=== PATIENT | female | born 1970 | race Caucasian/White ===

== ENCOUNTER 2018-08-01 18:34 | Inpatient (IN) ==
[2018-08-01] MEDS ORDERED: Sod Chloride 0.9% Inj 1,000 ML IV.SIG ONE ×2 (18:48→21:34)
--- NOTE | 2018-08-01 18:55 | ED ---
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 as per student development specialist, but long distances she requires wheelchair. apparently yesterday fell during transfer to wheelchair? and has had pain since...xray outpatient have a questionable nondisplaced of prox right femur...requested ct hip. MD complaint: Reports fall Related Data Home Medications Medication Instructions Recorded Confirmed acetaminophen [Tylenol] 650 mg FEEDING TUBE Q6H PRN 08/01/18 08/01/18 acetaminophen [Tylenol] 650 mg FEEDING TUBE Q6H PRN 08/01/18 08/01/18 amantadine HCl 200 mg FEEDING TUBE BID 08/01/18 08/01/18 carbidopa-levodopa [Sinemet] 1 tab FEEDING TUBE BID 08/01/18 08/01/18 cholecalciferol (vitamin D3) 1,000 unit FEEDING TUBE BID 08/01/18 08/01/18 mirtazapine [Remeron] 30 mg FEEDING TUBE HS 08/01/18 08/01/18 prednisone 5 mg FEEDING TUBE DAILY 08/01/18 08/01/18 vitamin B complex 1 tab FEEDING TUBE DAILY 08/01/18 08/01/18 Previous Rx's Medication Instructions Recorded rivaroxaban [Xarelto] 10 mg PO DAILY #14 tab 08/03/18 insulin aspart U-100 [Novolog 0 unit SUBCUT ACHS 30 Days ml 08/05/18 U-100 Insulin aspart] insulin detemir U-100 [Levemir 12 unit SUBCUT HS 30 Days ml 08/05/18 U-100 Insulin] levofloxacin [Levaquin] 750 mg PO DAILY #3 tab 08/05/18 lorazepam [Ativan] 1 mg FEEDING TUBE DAILY #3 tab 08/05/18 metoprolol tartrate 25 mg FEEDING TUBE BID #60 tab 08/05/18 Allergies Allergy/AdvReac Type Severity Reaction Status Date / Time barley Allergy Severe celiac Verified 08/02/18 01:54 disease gluten Allergy Severe CELIAC Verified 08/02/18 01:54 DISEASE oats Allergy Severe CELIAC Verified 08/02/18 01:54 DISEASE wheat Allergy Severe CELIAC Verified 08/02/18 01:54 DISEASE Review of Systems ROS Unobtainable ROS Unobtainable: unobtainable due to mental condition PMFSH History History Provided By: Medical Record and Salesperson [employer] / EMT Social History Social History Substance History: No History of Abuse Second Hand Smoke Exposure: No Smoking Status: Never smoker How Often Do You Have a Drink Containing Alcohol: Never Exam Narrative Exam Narrative: GENERAL: Well-nourished, well-developed patient in no apparent distress. SKIN: Warm and dry. HEAD: Atraumatic. Normocephalic. EYES: Pupils equal and round. No scleral icterus. No injection or drainage. ENT: No nasal bleeding or discharge. Mucous membranes pink and moist. NECK: Trachea midline. No JVD. CARDIOVASCULAR: Regular rate and rhythm. no rubs or gallops RESPIRATORY: No accessory muscle use. Clear to auscultation. Breath sounds equal bilaterally. GASTROINTESTINAL: Abdomen soft, non-tender, nondistended. No rebound or guarding MUSCULOSKELETAL: Extremities without clubbing, cyanosis, or edema. No obvious deformities. NEUROLOGICAL: Awake and alert, spontaneously looking around room but nonverbal, uses her upper extremities to cover her face. patient appears to have some mild LLE contracture, but ttp on right hip Course Initial Documented Vital Signs Pulse Rate 131 H 08/01/18 18:46 Respiratory Rate 25 H 08/01/18 18:46 Blood Pressure 193/95 H 08/01/18 18:46 Pulse Oximetry 88 L 08/01/18 18:46 Last Documented Vital Signs Temperature 98.0 F 08/05/18 16:00 Pulse Rate 87 08/05/18 16:00 Respiratory Rate 28 H 08/05/18 16:00 Blood Pressure 148/80 H 08/05/18 16:00 Pulse Oximetry 83 L 08/05/18 16:00 Medical Decision Making MDM Narrative Medical decision making narrative: Leukocytosis of 12,000 with a left shift with neutrophilia of 88% Hemoconcentration of 17/50 Hyperglycemia of 291, otherwise normal electrolytes, elevated lactic acid of 3.3 UA consistent with a UTI Chest x-ray shows infiltrates left lower lobe Right intertrochanteric femoral neck fracture noted on CT hip Medical Screen Exam Complete: Yes Emergency Medical Condition: Yes Lab Data Lab results reviewed: Yes I reviewed the patient's lab results. Result diagrams: 08/04/18 09:13 08/05/18 10:36 Lab Results 08/01/18 08/01/18 08/01/18 Range/Units 19:20 19:20 19:20 WBC 11.9 H (4.0-11.0) th/mm3 RBC 5.33 H (4.00-5.30) mil/mm3 Hgb 16.8 H (11.6-15.3) gm/dL Hct 50.5 H (35.0-46.0) % MCV 94.9 (80.0-100.0) fL MCH 31.6 (27.0-34.0) pg MCHC 33.3 (32.0-36.0) % RDW 13.9 (11.6-17.2) % Plt Count 177 (150-450) th/mm3 MPV 8.6 (7.0-11.0) fL Prelim Diff (Auto) Slide review pending Neut % (Auto) 87.8 H (16.0-70.0) % Lymph % (Auto) 7.9 L (9.0-44.0) % Piatt % (Auto) 4.2 (0.0-8.0) % Eos % (Auto) 0.0 (0.0-4.0) % Baso % (Auto) 0.1 (0.0-2.0) % Neut # (Auto) 10.5 H (1.8-7.7) th/mm3 Lymph # (Auto) 0.9 L (1.0-4.8) th/mm3 Piatt # (Auto) 0.5 (0.0-0.9) th/mm3 Eos # (Auto) 0.0 (0.0-0.4) th/mm3 Baso # (Auto) 0.0 (0.0-0.2) th/mm3 WBC Differential Manual diff final Seg Neuts % (Manual) 70 (16-70) % Band Neuts % (Manual) 16 H (0-6) % Lymphocytes % (Manual) 12 (9-44) % Monocytes % (Manual) 2 (0-8) % Metamyelocytes % (Man) (0-1) % Abs Neuts (Manual) 10.2 H (1.8-7.7) th/mm3 Differential Comment . Toxic Vacuolation Present H (None) Platelet Estimate Normal (Normal) Platelet Morphology Normal (Normal) PT (9.8-11.6) sec INR Ratio APTT (24.3-30.1) sec D-Dimer Quant (PE/DVT) (0.00-0.50) mg/L FEU Puncture Site Patient Temperature O2 Saturation (90-100) % ABG pH (7.380-7.420) ABG pCO2 (38-42) mmHg ABG pO2 (61-120) mmHg ABG HCO3 (22-26) mmol/L ABG O2 Content (12.0-20.0) Vol % ABG Base Excess (-2-2) mmol/L ABG Methemoglobin (0-2) % Tej Test Hemoglobin (12.0-16.0) G/DL Carboxyhemoglobin (0-4) % O2 Delivery Device Liter Flow L/M Critical Value Sodium 140 (136-145) meq/L Potassium 4.6 (3.5-5.1) meq/L Chloride 106 (98-107) meq/L Carbon Dioxide 20.4 L (21.0-32.0) meq/L Anion Gap 14 (5-15) meq/L BUN 11 (7-18) mg/dL Creatinine 0.66 (0.50-1.00) mg/dL Estimated GFR Greater than 89 (>89) mL/min POC Glucose (68-110) mg/dl Random Glucose 291 H (74-106) mg/dL Hemoglobin A1c (4.3-6.0) % Lactic Acid (0.4-2.0) mmol/L Calcium 9.8 (8.5-10.1) mg/dL Phosphorus (2.5-4.9) mg/dL Magnesium (1.5-2.5) mg/dL Total Bilirubin 1.3 H (0.2-1.0) mg/dL AST 35 (15-37) U/L ALT 35 (10-53) U/L Alkaline Phosphatase 97 (45-117) U/L Total Creatine Kinase 455 H (26-192) U/L CK-MB (CK-2) 2.6 (0.5-3.6) ng/mL CK-MB (CK-2) % 0.6 (0.0-4.0) % Troponin I Less than 0.02 L (0.02-0.05) ng/mL Total Protein 8.5 H (6.4-8.2) g/dL Albumin 4.1 (3.4-5.0) g/dL Vit D 1,25-Dihydroxy (18-78) pg/mL Beta-Hydroxybutyric Acd (0.00-0.39) mmol/L Urine Color (Yellw/Straw) Urine Clarity (Clear) Urine pH (5.0-8.5) Ur Specific [place] (1.002-1.035) Urine Protein (Neg-Trace) mg/dL Urine Glucose (UA) (Negative) mg/dL Urine Ketones (Negative) mg/dL Urine Occult Blood (Negative) Urine Nitrate (Negative) Urine Bilirubin (Negative) Urine Urobilinogen (Less than 2) mg/dL Ur Leukocyte Esterase (Negative) Urine RBC (0-3) /hpf Urine WBC (0-5) /hpf Ur Squamous Epith Cells (0-5) /hpf Urine Bacteria (None) /hpf Urine Mucus (Occasional) /lpf Micro UA Comment Ur Microscopic Review Urine Culture Comments Nasal Screen MRSA (PCR) (Negative) 08/01/18 08/01/18 08/01/18 Range/Units 19:20 21:57 23:49 WBC (4.0-11.0) th/mm3 RBC (4.00-5.30) mil/mm3 Hgb (11.6-15.3) gm/dL Hct (35.0-46.0) % MCV (80.0-100.0) fL MCH (27.0-34.0) pg MCHC (32.0-36.0) % RDW (11.6-17.2) % Plt Count (150-450) th/mm3 MPV (7.0-11.0) fL Prelim Diff (Auto) Neut % (Auto) (16.0-70.0) % Lymph % (Auto) (9.0-44.0) % Piatt % (Auto) (0.0-8.0) % Eos % (Auto) (0.0-4.0) % Baso % (Auto) (0.0-2.0) % Neut # (Auto) (1.8-7.7) th/mm3 Lymph # (Auto) (1.0-4.8) th/mm3 Piatt # (Auto) (0.0-0.9) th/mm3 Eos # (Auto) (0.0-0.4) th/mm3 Baso # (Auto) (0.0-0.2) th/mm3 WBC Differential Seg Neuts % (Manual) (16-70) % Band Neuts % (Manual) (0-6) % Lymphocytes % (Manual) (9-44) % Monocytes % (Manual) (0-8) % Metamyelocytes % (Man) (0-1) % Abs Neuts (Manual) (1.8-7.7) th/mm3 Differential Comment Toxic Vacuolation (None) Platelet Estimate (Normal) Platelet Morphology (Normal) PT (9.8-11.6) sec INR Ratio APTT (24.3-30.1) sec D-Dimer Quant (PE/DVT) 14.26 H (0.00-0.50) mg/L FEU Puncture Site Patient Temperature O2 Saturation (90-100) % ABG pH (7.380-7.420) ABG pCO2 (38-42) mmHg ABG pO2 (61-120) mmHg ABG HCO3 (22-26) mmol/L ABG O2 Content (12.0-20.0) Vol % ABG Base Excess (-2-2) mmol/L ABG Methemoglobin (0-2) % Tej Test Hemoglobin (12.0-16.0) G/DL Carboxyhemoglobin (0-4) % O2 Delivery Device Liter Flow L/M Critical Value Sodium (136-145) meq/L Potassium (3.5-5.1) meq/L Chloride (98-107) meq/L Carbon Dioxide (21.0-32.0) meq/L Anion Gap (5-15) meq/L BUN (7-18) mg/dL Creatinine (0.50-1.00) mg/dL Estimated GFR (>89) mL/min POC Glucose (68-110) mg/dl Random Glucose (74-106) mg/dL Hemoglobin A1c (4.3-6.0) % Lactic Acid 3.3 H 1.7 (0.4-2.0) mmol/L Calcium (8.5-10.1) mg/dL Phosphorus (2.5-4.9) mg/dL Magnesium (1.5-2.5) mg/dL Total Bilirubin (0.2-1.0) mg/dL AST (15-37) U/L ALT (10-53) U/L Alkaline Phosphatase (45-117) U/L Total Creatine Kinase (26-192) U/L CK-MB (CK-2) (0.5-3.6) ng/mL CK-MB (CK-2) % (0.0-4.0) % Troponin I (0.02-0.05) ng/mL Total Protein (6.4-8.2) g/dL Albumin (3.4-5.0) g/dL Vit D 1,25-Dihydroxy (18-78) pg/mL Beta-Hydroxybutyric Acd (0.00-0.39) mmol/L Urine Color (Yellw/Straw) Urine Clarity (Clear) Urine pH (5.0-8.5) Ur Specific [place] (1.002-1.035) Urine Protein (Neg-Trace) mg/dL Urine Glucose (UA) (Negative) mg/dL Urine Ketones (Negative) mg/dL Urine Occult Blood (Negative) Urine Nitrate (Negative) Urine Bilirubin (Negative) Urine Urobilinogen (Less than 2) mg/dL Ur Leukocyte Esterase (Negative) Urine RBC (0-3) /hpf Urine WBC (0-5) /hpf Ur Squamous Epith Cells (0-5) /hpf Urine Bacteria (None) /hpf Urine Mucus (Occasional) /lpf Micro UA Comment Ur Microscopic Review Urine Culture Comments Nasal Screen MRSA (PCR) (Negative) 08/02/18 08/02/18 08/02/18 Range/Units 03:42 03:42 04:30 WBC 14.4 H (4.0-11.0) th/mm3 RBC 4.77 (4.00-5.30) mil/mm3 Hgb 15.2 (11.6-15.3) gm/dL Hct 46.6 H (35.0-46.0) % MCV 97.7 (80.0-100.0) fL MCH 31.8 (27.0-34.0) pg MCHC 32.5 (32.0-36.0) % RDW 14.4 (11.6-17.2) % Plt Count 166 (150-450) th/mm3 MPV 9.4 (7.0-11.0) fL Prelim Diff (Auto) Slide review pending Neut % (Auto) 87.9 H (16.0-70.0) % Lymph % (Auto) 6.0 L (9.0-44.0) % Piatt % (Auto) 5.8 (0.0-8.0) % Eos % (Auto) 0.0 (0.0-4.0) % Baso % (Auto) 0.3 (0.0-2.0) % Neut # (Auto) 12.6 H (1.8-7.7) th/mm3 Lymph # (Auto) 0.9 L (1.0-4.8) th/mm3 Piatt # (Auto) 0.8 (0.0-0.9) th/mm3 Eos # (Auto) 0.0 (0.0-0.4) th/mm3 Baso # (Auto) 0.0 (0.0-0.2) th/mm3 WBC Differential Manual diff final Seg Neuts % (Manual) 67 (16-70) % Band Neuts % (Manual) 24 H (0-6) % Lymphocytes % (Manual) 6 L (9-44) % Monocytes % (Manual) 2 (0-8) % Metamyelocytes % (Man) 1 (0-1) % Abs Neuts (Manual) 13.2 H (1.8-7.7) th/mm3 Differential Comment . Toxic Vacuolation (None) Platelet Estimate Normal (Normal) Platelet Morphology Normal (Normal) PT (9.8-11.6) sec INR Ratio APTT (24.3-30.1) sec D-Dimer Quant (PE/DVT) (0.00-0.50) mg/L FEU Puncture Site Patient Temperature O2 Saturation (90-100) % ABG pH (7.380-7.420) ABG pCO2 (38-42) mmHg ABG pO2 (61-120) mmHg ABG HCO3 (22-26) mmol/L ABG O2 Content (12.0-20.0) Vol % ABG Base Excess (-2-2) mmol/L ABG Methemoglobin (0-2) % Tej Test Hemoglobin (12.0-16.0) G/DL Carboxyhemoglobin (0-4) % O2 Delivery Device Liter Flow L/M Critical Value Sodium 148 H (136-145) meq/L Potassium 3.8 D (3.5-5.1) meq/L Chloride 114 H D (98-107) meq/L Carbon Dioxide 12.6 L (21.0-32.0) meq/L Anion Gap 21 H (5-15) meq/L BUN 9 (7-18) mg/dL Creatinine 0.62 (0.50-1.00) mg/dL Estimated GFR Greater than 89 (>89) mL/min POC Glucose (68-110) mg/dl Random Glucose 267 H (74-106) mg/dL Hemoglobin A1c (4.3-6.0) % Lactic Acid (0.4-2.0) mmol/L Calcium 8.2 L D (8.5-10.1) mg/dL Phosphorus (2.5-4.9) mg/dL Magnesium (1.5-2.5) mg/dL Total Bilirubin 0.8 (0.2-1.0) mg/dL AST 24 (15-37) U/L ALT 29 (10-53) U/L Alkaline Phosphatase 90 (45-117) U/L Total Creatine Kinase 626 H (26-192) U/L CK-MB (CK-2) 4.0 H (0.5-3.6) ng/mL CK-MB (CK-2) % 0.6 (0.0-4.0) % Troponin I (0.02-0.05) ng/mL Total Protein 7.6 D (6.4-8.2) g/dL Albumin 3.7 (3.4-5.0) g/dL Vit D 1,25-Dihydroxy (18-78) pg/mL Beta-Hydroxybutyric Acd (0.00-0.39) mmol/L Urine Color Straw (Yellw/Straw) Urine Clarity Clear (Clear) Urine pH 5.0 (5.0-8.5) Ur Specific [place] 1.026 (1.002-1.035) Urine Protein Negative (Neg-Trace) mg/dL Urine Glucose (UA) 500 or greater (Negative) mg/dL Urine Ketones 80 or greater H (Negative) mg/dL Urine Occult Blood Small H (Negative) Urine Nitrate Negative (Negative) Urine Bilirubin Negative (Negative) Urine Urobilinogen Less than 2 (Less than 2) mg/dL Ur Leukocyte Esterase Negative (Negative) Urine RBC 1 (0-3) /hpf Urine WBC 2 (0-5) /hpf Ur Squamous Epith Cells 1 (0-5) /hpf Urine Bacteria (None) /hpf Urine Mucus Few H (Occasional) /lpf Micro UA Comment Culture not ind Ur Microscopic Review Not Reportable Urine Culture Comments Culture not ind Nasal Screen MRSA (PCR) (Negative) 08/02/18 08/02/18 08/02/18 Range/Units 08:04 10:39 17:59 WBC (4.0-11.0) th/mm3 RBC (4.00-5.30) mil/mm3 Hgb (11.6-15.3) gm/dL Hct (35.0-46.0) % MCV (80.0-100.0) fL MCH (27.0-34.0) pg MCHC (32.0-36.0) % RDW (11.6-17.2) % Plt Count (150-450) th/mm3 MPV (7.0-11.0) fL Prelim Diff (Auto) Neut % (Auto) (16.0-70.0) % Lymph % (Auto) (9.0-44.0) % Piatt % (Auto) (0.0-8.0) % Eos % (Auto) (0.0-4.0) % Baso % (Auto) (0.0-2.0) % Neut # (Auto) (1.8-7.7) th/mm3 Lymph # (Auto) (1.0-4.8) th/mm3 Piatt # (Auto) (0.0-0.9) th/mm3 Eos # (Auto) (0.0-0.4) th/mm3 Baso # (Auto) (0.0-0.2) th/mm3 WBC Differential Seg Neuts % (Manual) (16-70) % Band Neuts % (Manual) (0-6) % Lymphocytes % (Manual) (9-44) % Monocytes % (Manual) (0-8) % Metamyelocytes % (Man) (0-1) % Abs Neuts (Manual) (1.8-7.7) th/mm3 Differential Comment Toxic Vacuolation (None) Platelet Estimate (Normal) Platelet Morphology (Normal) PT (9.8-11.6) sec INR Ratio APTT (24.3-30.1) sec D-Dimer Quant (PE/DVT) (0.00-0.50) mg/L FEU Puncture Site Patient Temperature O2 Saturation (90-100) % ABG pH (7.380-7.420) ABG pCO2 (38-42) mmHg ABG pO2 (61-120) mmHg ABG HCO3 (22-26) mmol/L ABG O2 Content (12.0-20.0) Vol % ABG Base Excess (-2-2) mmol/L ABG Methemoglobin (0-2) % Tej Test Hemoglobin (12.0-16.0) G/DL Carboxyhemoglobin (0-4) % O2 Delivery Device Liter Flow L/M Critical Value Sodium (136-145) meq/L Potassium (3.5-5.1) meq/L Chloride (98-107) meq/L Carbon Dioxide (21.0-32.0) meq/L Anion Gap (5-15) meq/L BUN (7-18) mg/dL Creatinine (0.50-1.00) mg/dL Estimated GFR (>89) mL/min POC Glucose 248 H 281 H 265 H (68-110) mg/dl Random Glucose (74-106) mg/dL Hemoglobin A1c (4.3-6.0) % Lactic Acid (0.4-2.0) mmol/L Calcium (8.5-10.1) mg/dL Phosphorus (2.5-4.9) mg/dL Magnesium (1.5-2.5) mg/dL Total Bilirubin (0.2-1.0) mg/dL AST (15-37) U/L ALT (10-53) U/L Alkaline Phosphatase (45-117) U/L Total Creatine Kinase (26-192) U/L CK-MB (CK-2) (0.5-3.6) ng/mL CK-MB (CK-2) % (0.0-4.0) % Troponin I (0.02-0.05) ng/mL Total Protein (6.4-8.2) g/dL Albumin (3.4-5.0) g/dL Vit D 1,25-Dihydroxy (18-78) pg/mL Beta-Hydroxybutyric Acd (0.00-0.39) mmol/L Urine Color (Yellw/Straw) Urine Clarity (Clear) Urine pH (5.0-8.5) Ur Specific [place] (1.002-1.035) Urine Protein (Neg-Trace) mg/dL Urine Glucose (UA) (Negative) mg/dL Urine Ketones (Negative) mg/dL Urine Occult Blood (Negative) Urine Nitrate (Negative) Urine Bilirubin (Negative) Urine Urobilinogen (Less than 2) mg/dL Ur Leukocyte Esterase (Negative) Urine RBC (0-3) /hpf Urine WBC (0-5) /hpf Ur Squamous Epith Cells (0-5) /hpf Urine Bacteria (None) /hpf Urine Mucus (Occasional) /lpf Micro UA Comment Ur Microscopic Review Urine Culture Comments Nasal Screen MRSA (PCR) (Negative) 08/02/18 08/03/18 08/03/18 Range/Units 20:48 06:23 06:23 WBC 14.8 H (4.0-11.0) th/mm3 RBC 4.08 (4.00-5.30) mil/mm3 Hgb 13.1 D (11.6-15.3) gm/dL Hct 40.0 (35.0-46.0) % MCV 98.1 (80.0-100.0) fL MCH 32.2 (27.0-34.0) pg MCHC 32.8 (32.0-36.0) % RDW 14.4 (11.6-17.2) % Plt Count 179 (150-450) th/mm3 MPV 8.8 (7.0-11.0) fL Prelim Diff (Auto) Neut % (Auto) (16.0-70.0) % Lymph % (Auto) (9.0-44.0) % Piatt % (Auto) (0.0-8.0) % Eos % (Auto) (0.0-4.0) % Baso % (Auto) (0.0-2.0) % Neut # (Auto) (1.8-7.7) th/mm3 Lymph # (Auto) (1.0-4.8) th/mm3 Piatt # (Auto) (0.0-0.9) th/mm3 Eos # (Auto) (0.0-0.4) th/mm3 Baso # (Auto) (0.0-0.2) th/mm3 WBC Differential Seg Neuts % (Manual) (16-70) % Band Neuts % (Manual) (0-6) % Lymphocytes % (Manual) (9-44) % Monocytes % (Manual) (0-8) % Metamyelocytes % (Man) (0-1) % Abs Neuts (Manual) (1.8-7.7) th/mm3 Differential Comment Toxic Vacuolation (None) Platelet Estimate (Normal) Platelet Morphology (Normal) PT (9.8-11.6) sec INR Ratio APTT (24.3-30.1) sec D-Dimer Quant (PE/DVT) (0.00-0.50) mg/L FEU Puncture Site Patient Temperature O2 Saturation (90-100) % ABG pH (7.380-7.420) ABG pCO2 (38-42) mmHg ABG pO2 (61-120) mmHg ABG HCO3 (22-26) mmol/L ABG O2 Content (12.0-20.0) Vol % ABG Base Excess (-2-2) mmol/L ABG Methemoglobin (0-2) % Tej Test Hemoglobin (12.0-16.0) G/DL Carboxyhemoglobin (0-4) % O2 Delivery Device Liter Flow L/M Critical Value Sodium (136-145) meq/L Potassium (3.5-5.1) meq/L Chloride (98-107) meq/L Carbon Dioxide (21.0-32.0) meq/L Anion Gap (5-15) meq/L BUN (7-18) mg/dL Creatinine (0.50-1.00) mg/dL Estimated GFR (>89) mL/min POC Glucose 268 H (68-110) mg/dl Random Glucose (74-106) mg/dL Hemoglobin A1c (4.3-6.0) % Lactic Acid (0.4-2.0) mmol/L Calcium (8.5-10.1) mg/dL Phosphorus (2.5-4.9) mg/dL Magnesium (1.5-2.5) mg/dL Total Bilirubin (0.2-1.0) mg/dL AST (15-37) U/L ALT (10-53) U/L Alkaline Phosphatase (45-117) U/L Total Creatine Kinase (26-192) U/L CK-MB (CK-2) (0.5-3.6) ng/mL CK-MB (CK-2) % (0.0-4.0) % Troponin I (0.02-0.05) ng/mL Total Protein (6.4-8.2) g/dL Albumin (3.4-5.0) g/dL Vit D 1,25-Dihydroxy 23 (18-78) pg/mL Beta-Hydroxybutyric Acd (0.00-0.39) mmol/L Urine Color (Yellw/Straw) Urine Clarity (Clear) Urine pH (5.0-8.5) Ur Specific [place] (1.002-1.035) Urine Protein (Neg-Trace) mg/dL Urine Glucose (UA) (Negative) mg/dL Urine Ketones (Negative) mg/dL Urine Occult Blood (Negative) Urine Nitrate (Negative) Urine Bilirubin (Negative) Urine Urobilinogen (Less than 2) mg/dL Ur Leukocyte Esterase (Negative) Urine RBC (0-3) /hpf Urine WBC (0-5) /hpf Ur Squamous Epith Cells (0-5) /hpf Urine Bacteria (None) /hpf Urine Mucus (Occasional) /lpf Micro UA Comment Ur Microscopic Review Urine Culture Comments Nasal Screen MRSA (PCR) (Negative) 08/03/18 08/03/18 08/03/18 Range/Units 06:23 06:23 07:36 WBC (4.0-11.0) th/mm3 RBC (4.00-5.30) mil/mm3 Hgb (11.6-15.3) gm/dL Hct (35.0-46.0) % MCV (80.0-100.0) fL MCH (27.0-34.0) pg MCHC (32.0-36.0) % RDW (11.6-17.2) % Plt Count (150-450) th/mm3 MPV (7.0-11.0) fL Prelim Diff (Auto) Neut % (Auto) (16.0-70.0) % Lymph % (Auto) (9.0-44.0) % Piatt % (Auto) (0.0-8.0) % Eos % (Auto) (0.0-4.0) % Baso % (Auto) (0.0-2.0) % Neut # (Auto) (1.8-7.7) th/mm3 Lymph # (Auto) (1.0-4.8) th/mm3 Piatt # (Auto) (0.0-0.9) th/mm3 Eos # (Auto) (0.0-0.4) th/mm3 Baso # (Auto) (0.0-0.2) th/mm3 WBC Differential Seg Neuts % (Manual) (16-70) % Band Neuts % (Manual) (0-6) % Lymphocytes % (Manual) (9-44) % Monocytes % (Manual) (0-8) % Metamyelocytes % (Man) (0-1) % Abs Neuts (Manual) (1.8-7.7) th/mm3 Differential Comment Toxic Vacuolation (None) Platelet Estimate (Normal) Platelet Morphology (Normal) PT (9.8-11.6) sec INR Ratio APTT (24.3-30.1) sec D-Dimer Quant (PE/DVT) (0.00-0.50) mg/L FEU Puncture Site Patient Temperature O2 Saturation (90-100) % ABG pH (7.380-7.420) ABG pCO2 (38-42) mmHg ABG pO2 (61-120) mmHg ABG HCO3 (22-26) mmol/L ABG O2 Content (12.0-20.0) Vol % ABG Base Excess (-2-2) mmol/L ABG Methemoglobin (0-2) % Tej Test Hemoglobin (12.0-16.0) G/DL Carboxyhemoglobin (0-4) % O2 Delivery Device Liter Flow L/M Critical Value Sodium 143 (136-145) meq/L Potassium 4.3 (3.5-5.1) meq/L Chloride 116 H (98-107) meq/L Carbon Dioxide 9.0 L (21.0-32.0) meq/L Anion Gap 18 H (5-15) meq/L BUN 17 (7-18) mg/dL Creatinine 0.66 (0.50-1.00) mg/dL Estimated GFR Greater than 89 (>89) mL/min POC Glucose 382 H (68-110) mg/dl Random Glucose 323 H (74-106) mg/dL Hemoglobin A1c 8.9 H (4.3-6.0) % Lactic Acid (0.4-2.0) mmol/L Calcium 9.1 D (8.5-10.1) mg/dL Phosphorus (2.5-4.9) mg/dL Magnesium (1.5-2.5) mg/dL Total Bilirubin (0.2-1.0) mg/dL AST (15-37) U/L ALT (10-53) U/L Alkaline Phosphatase (45-117) U/L Total Creatine Kinase (26-192) U/L CK-MB (CK-2) (0.5-3.6) ng/mL CK-MB (CK-2) % (0.0-4.0) % Troponin I (0.02-0.05) ng/mL Total Protein (6.4-8.2) g/dL Albumin (3.4-5.0) g/dL Vit D 1,25-Dihydroxy (18-78) pg/mL Beta-Hydroxybutyric Acd (0.00-0.39) mmol/L Urine Color (Yellw/Straw) Urine Clarity (Clear) Urine pH (5.0-8.5) Ur Specific [place] (1.002-1.035) Urine Protein (Neg-Trace) mg/dL Urine Glucose (UA) (Negative) mg/dL Urine Ketones (Negative) mg/dL Urine Occult Blood (Negative) Urine Nitrate (Negative) Urine Bilirubin (Negative) Urine Urobilinogen (Less than 2) mg/dL Ur Leukocyte Esterase (Negative) Urine RBC (0-3) /hpf Urine WBC (0-5) /hpf Ur Squamous Epith Cells (0-5) /hpf Urine Bacteria (None) /hpf Urine Mucus (Occasional) /lpf Micro UA Comment Ur Microscopic Review Urine Culture Comments Nasal Screen MRSA (PCR) (Negative) 08/03/18 08/03/18 08/03/18 Range/Units 09:19 09:19 09:19 WBC (4.0-11.0) th/mm3 RBC (4.00-5.30) mil/mm3 Hgb (11.6-15.3) gm/dL Hct (35.0-46.0) % MCV (80.0-100.0) fL MCH (27.0-34.0) pg MCHC (32.0-36.0) % RDW (11.6-17.2) % Plt Count (150-450) th/mm3 MPV (7.0-11.0) fL Prelim Diff (Auto) Neut % (Auto) (16.0-70.0) % Lymph % (Auto) (9.0-44.0) % Piatt % (Auto) (0.0-8.0) % Eos % (Auto) (0.0-4.0) % Baso % (Auto) (0.0-2.0) % Neut # (Auto) (1.8-7.7) th/mm3 Lymph # (Auto) (1.0-4.8) th/mm3 Piatt # (Auto) (0.0-0.9) th/mm3 Eos # (Auto) (0.0-0.4) th/mm3 Baso # (Auto) (0.0-0.2) th/mm3 WBC Differential Seg Neuts % (Manual) (16-70) % Band Neuts % (Manual) (0-6) % Lymphocytes % (Manual) (9-44) % Monocytes % (Manual) (0-8) % Metamyelocytes % (Man) (0-1) % Abs Neuts (Manual) (1.8-7.7) th/mm3 Differential Comment Toxic Vacuolation (None) Platelet Estimate (Normal) Platelet Morphology (Normal) PT 10.2 (9.8-11.6) sec INR 1.0 Ratio APTT 28.9 (24.3-30.1) sec D-Dimer Quant (PE/DVT) (0.00-0.50) mg/L FEU Puncture Site Patient Temperature O2 Saturation (90-100) % ABG pH (7.380-7.420) ABG pCO2 (38-42) mmHg ABG pO2 (61-120) mmHg ABG HCO3 (22-26) mmol/L ABG O2 Content (12.0-20.0) Vol % ABG Base Excess (-2-2) mmol/L ABG Methemoglobin (0-2) % Tej Test Hemoglobin (12.0-16.0) G/DL Carboxyhemoglobin (0-4) % O2 Delivery Device Liter Flow L/M Critical Value Sodium (136-145) meq/L Potassium (3.5-5.1) meq/L Chloride (98-107) meq/L Carbon Dioxide (21.0-32.0) meq/L Anion Gap (5-15) meq/L BUN (7-18) mg/dL Creatinine (0.50-1.00) mg/dL Estimated GFR (>89) mL/min POC Glucose (68-110) mg/dl Random Glucose (74-106) mg/dL Hemoglobin A1c (4.3-6.0) % Lactic Acid (0.4-2.0) mmol/L Calcium (8.5-10.1) mg/dL Phosphorus (2.5-4.9) mg/dL Magnesium (1.5-2.5) mg/dL Total Bilirubin (0.2-1.0) mg/dL AST (15-37) U/L ALT (10-53) U/L Alkaline Phosphatase (45-117) U/L Total Creatine Kinase 425 H (26-192) U/L CK-MB (CK-2) 6.4 H (0.5-3.6) ng/mL CK-MB (CK-2) % 1.5 (0.0-4.0) % Troponin I (0.02-0.05) ng/mL Total Protein (6.4-8.2) g/dL Albumin (3.4-5.0) g/dL Vit D 1,25-Dihydroxy (18-78) pg/mL Beta-Hydroxybutyric Acd (0.00-0.39) mmol/L Urine Color (Yellw/Straw) Urine Clarity (Clear) Urine pH (5.0-8.5) Ur Specific [place] (1.002-1.035) Urine Protein (Neg-Trace) mg/dL Urine Glucose (UA) (Negative) mg/dL Urine Ketones (Negative) mg/dL Urine Occult Blood (Negative) Urine Nitrate (Negative) Urine Bilirubin (Negative) Urine Urobilinogen (Less than 2) mg/dL Ur Leukocyte Esterase (Negative) Urine RBC (0-3) /hpf Urine WBC (0-5) /hpf Ur Squamous Epith Cells (0-5) /hpf Urine Bacteria (None) /hpf Urine Mucus (Occasional) /lpf Micro UA Comment Ur Microscopic Review Urine Culture Comments Nasal Screen MRSA (PCR) (Negative) 08/03/18 08/03/18 08/03/18 Range/Units 09:19 10:20 11:10 WBC (4.0-11.0) th/mm3 RBC (4.00-5.30) mil/mm3 Hgb (11.6-15.3) gm/dL Hct (35.0-46.0) % MCV (80.0-100.0) fL MCH (27.0-34.0) pg MCHC (32.0-36.0) % RDW (11.6-17.2) % Plt Count (150-450) th/mm3 MPV (7.0-11.0) fL Prelim Diff (Auto) Neut % (Auto) (16.0-70.0) % Lymph % (Auto) (9.0-44.0) % Piatt % (Auto) (0.0-8.0) % Eos % (Auto) (0.0-4.0) % Baso % (Auto) (0.0-2.0) % Neut # (Auto) (1.8-7.7) th/mm3 Lymph # (Auto) (1.0-4.8) th/mm3 Piatt # (Auto) (0.0-0.9) th/mm3 Eos # (Auto) (0.0-0.4) th/mm3 Baso # (Auto) (0.0-0.2) th/mm3 WBC Differential Seg Neuts % (Manual) (16-70) % Band Neuts % (Manual) (0-6) % Lymphocytes % (Manual) (9-44) % Monocytes % (Manual) (0-8) % Metamyelocytes % (Man) (0-1) % Abs Neuts (Manual) (1.8-7.7) th/mm3 Differential Comment Toxic Vacuolation (None) Platelet Estimate (Normal) Platelet Morphology (Normal) PT (9.8-11.6) sec INR Ratio APTT (24.3-30.1) sec D-Dimer Quant (PE/DVT) (0.00-0.50) mg/L FEU Puncture Site Left radial Patient Temperature 98.6 O2 Saturation 95 (90-100) % ABG pH 7.24 L* (7.380-7.420) ABG pCO2 15 L* (38-42) mmHg ABG pO2 130 H (61-120) mmHg ABG HCO3 6 L* (22-26) mmol/L ABG O2 Content 18.4 (12.0-20.0) Vol % ABG Base Excess -20.1 L (-2-2) mmol/L ABG Methemoglobin 1.2 (0-2) % Tej Test Present Hemoglobin 13.6 (12.0-16.0) G/DL Carboxyhemoglobin 0.2 (0-4) % O2 Delivery Device Nasal cannula Liter Flow 3.00 L/M Critical Value Yes Sodium 148 H (136-145) meq/L Potassium 4.4 (3.5-5.1) meq/L Chloride 116 H (98-107) meq/L Carbon Dioxide 7.5 L (21.0-32.0) meq/L Anion Gap 25 H (5-15) meq/L BUN 17 (7-18) mg/dL Creatinine 0.66 (0.50-1.00) mg/dL Estimated GFR Greater than 89 (>89) mL/min POC Glucose (68-110) mg/dl Random Glucose 325 H (74-106) mg/dL Hemoglobin A1c (4.3-6.0) % Lactic Acid (0.4-2.0) mmol/L Calcium 8.3 L D (8.5-10.1) mg/dL Phosphorus (2.5-4.9) mg/dL Magnesium (1.5-2.5) mg/dL Total Bilirubin 0.6 (0.2-1.0) mg/dL AST 21 (15-37) U/L ALT 30 (10-53) U/L Alkaline Phosphatase 145 H (45-117) U/L Total Creatine Kinase (26-192) U/L CK-MB (CK-2) (0.5-3.6) ng/mL CK-MB (CK-2) % (0.0-4.0) % Troponin I (0.02-0.05) ng/mL Total Protein 7.6 (6.4-8.2) g/dL Albumin 3.3 L (3.4-5.0) g/dL Vit D 1,25-Dihydroxy (18-78) pg/mL Beta-Hydroxybutyric Acd (0.00-0.39) mmol/L Urine Color (Yellw/Straw) Urine Clarity (Clear) Urine pH (5.0-8.5) Ur Specific [place] (1.002-1.035) Urine Protein (Neg-Trace) mg/dL Urine Glucose (UA) (Negative) mg/dL Urine Ketones (Negative) mg/dL Urine Occult Blood (Negative) Urine Nitrate (Negative) Urine Bilirubin (Negative) Urine Urobilinogen (Less than 2) mg/dL Ur Leukocyte Esterase (Negative) Urine RBC (0-3) /hpf Urine WBC (0-5) /hpf Ur Squamous Epith Cells (0-5) /hpf Urine Bacteria (None) /hpf Urine Mucus (Occasional) /lpf Micro UA Comment Ur Microscopic Review Urine Culture Comments Nasal Screen MRSA (PCR) Not detected (Negative) 08/03/18 08/03/18 08/03/18 Range/Units 11:22 11:42 12:30 WBC (4.0-11.0) th/mm3 RBC (4.00-5.30) mil/mm3 Hgb (11.6-15.3) gm/dL Hct (35.0-46.0) % MCV (80.0-100.0) fL MCH (27.0-34.0) pg MCHC (32.0-36.0) % RDW (11.6-17.2) % Plt Count (150-450) th/mm3 MPV (7.0-11.0) fL Prelim Diff (Auto) Neut % (Auto) (16.0-70.0) % Lymph % (Auto) (9.0-44.0) % Piatt % (Auto) (0.0-8.0) % Eos % (Auto) (0.0-4.0) % Baso % (Auto) (0.0-2.0) % Neut # (Auto) (1.8-7.7) th/mm3 Lymph # (Auto) (1.0-4.8) th/mm3 Piatt # (Auto) (0.0-0.9) th/mm3 Eos # (Auto) (0.0-0.4) th/mm3 Baso # (Auto) (0.0-0.2) th/mm3 WBC Differential Seg Neuts % (Manual) (16-70) % Band Neuts % (Manual) (0-6) % Lymphocytes % (Manual) (9-44) % Monocytes % (Manual) (0-8) % Metamyelocytes % (Man) (0-1) % Abs Neuts (Manual) (1.8-7.7) th/mm3 Differential Comment Toxic Vacuolation (None) Platelet Estimate (Normal) Platelet Morphology (Normal) PT (9.8-11.6) sec INR Ratio APTT (24.3-30.1) sec D-Dimer Quant (PE/DVT) (0.00-0.50) mg/L FEU Puncture Site Patient Temperature O2 Saturation (90-100) % ABG pH (7.380-7.420) ABG pCO2 (38-42) mmHg ABG pO2 (61-120) mmHg ABG HCO3 (22-26) mmol/L ABG O2 Content (12.0-20.0) Vol % ABG Base Excess (-2-2) mmol/L ABG Methemoglobin (0-2) % Tej Test Hemoglobin (12.0-16.0) G/DL Carboxyhemoglobin (0-4) % O2 Delivery Device Liter Flow L/M Critical Value Sodium (136-145) meq/L Potassium (3.5-5.1) meq/L Chloride (98-107) meq/L Carbon Dioxide (21.0-32.0) meq/L Anion Gap (5-15) meq/L BUN (7-18) mg/dL Creatinine (0.50-1.00) mg/dL Estimated GFR (>89) mL/min POC Glucose 326 H (68-110) mg/dl Random Glucose (74-106) mg/dL Hemoglobin A1c (4.3-6.0) % Lactic Acid 1.2 (0.4-2.0) mmol/L Calcium (8.5-10.1) mg/dL Phosphorus (2.5-4.9) mg/dL Magnesium (1.5-2.5) mg/dL Total Bilirubin (0.2-1.0) mg/dL AST (15-37) U/L ALT (10-53) U/L Alkaline Phosphatase (45-117) U/L Total Creatine Kinase (26-192) U/L CK-MB (CK-2) (0.5-3.6) ng/mL CK-MB (CK-2) % (0.0-4.0) % Troponin I (0.02-0.05) ng/mL Total Protein (6.4-8.2) g/dL Albumin (3.4-5.0) g/dL Vit D 1,25-Dihydroxy (18-78) pg/mL Beta-Hydroxybutyric Acd (0.00-0.39) mmol/L Urine Color Yellow (Yellw/Straw) Urine Clarity Clear (Clear) Urine pH 5.0 (5.0-8.5) Ur Specific [place] 1.023 (1.002-1.035) Urine Protein Negative (Neg-Trace) mg/dL Urine Glucose (UA) 500 or greater (Negative) mg/dL Urine Ketones 80 or greater H (Negative) mg/dL Urine Occult Blood Small H (Negative) Urine Nitrate Negative (Negative) Urine Bilirubin Negative (Negative) Urine Urobilinogen Less than 2 (Less than 2) mg/dL Ur Leukocyte Esterase Negative (Negative) Urine RBC 1 (0-3) /hpf Urine WBC Less than 1 (0-5) /hpf Ur Squamous Epith Cells <1 (0-5) /hpf Urine Bacteria Occasional H (None) /hpf Urine Mucus Few H (Occasional) /lpf Micro UA Comment Culture not ind Ur Microscopic Review Not Reportable Urine Culture Comments Culture not ind Nasal Screen MRSA (PCR) (Negative) 08/03/18 08/03/18 08/03/18 Range/Units 12:55 14:03 14:30 WBC (4.0-11.0) th/mm3 RBC (4.00-5.30) mil/mm3 Hgb (11.6-15.3) gm/dL Hct (35.0-46.0) % MCV (80.0-100.0) fL MCH (27.0-34.0) pg MCHC (32.0-36.0) % RDW (11.6-17.2) % Plt Count (150-450) th/mm3 MPV (7.0-11.0) fL Prelim Diff (Auto) Neut % (Auto) (16.0-70.0) % Lymph % (Auto) (9.0-44.0) % Piatt % (Auto) (0.0-8.0) % Eos % (Auto) (0.0-4.0) % Baso % (Auto) (0.0-2.0) % Neut # (Auto) (1.8-7.7) th/mm3 Lymph # (Auto) (1.0-4.8) th/mm3 Piatt # (Auto) (0.0-0.9) th/mm3 Eos # (Auto) (0.0-0.4) th/mm3 Baso # (Auto) (0.0-0.2) th/mm3 WBC Differential Seg Neuts % (Manual) (16-70) % Band Neuts % (Manual) (0-6) % Lymphocytes % (Manual) (9-44) % Monocytes % (Manual) (0-8) % Metamyelocytes % (Man) (0-1) % Abs Neuts (Manual) (1.8-7.7) th/mm3 Differential Comment Toxic Vacuolation (None) Platelet Estimate (Normal) Platelet Morphology (Normal) PT (9.8-11.6) sec INR Ratio APTT (24.3-30.1) sec D-Dimer Quant (PE/DVT) (0.00-0.50) mg/L FEU Puncture Site Right radial Patient Temperature 98.6 O2 Saturation 96 (90-100) % ABG pH 7.34 L (7.380-7.420) ABG pCO2 23 L* (38-42) mmHg ABG pO2 152 H (61-120) mmHg ABG HCO3 12 L* (22-26) mmol/L ABG O2 Content 17.2 (12.0-20.0) Vol % ABG Base Excess -12.8 L (-2-2) mmol/L ABG Methemoglobin 1.4 (0-2) % Tej Test Present Hemoglobin 12.6 (12.0-16.0) G/DL Carboxyhemoglobin 0.0 (0-4) % O2 Delivery Device Nasal cannula Liter Flow 2.00 L/M Critical Value Yes Sodium (136-145) meq/L Potassium (3.5-5.1) meq/L Chloride (98-107) meq/L Carbon Dioxide (21.0-32.0) meq/L Anion Gap (5-15) meq/L BUN (7-18) mg/dL Creatinine (0.50-1.00) mg/dL Estimated GFR (>89) mL/min POC Glucose 324 H 243 H (68-110) mg/dl Random Glucose (74-106) mg/dL Hemoglobin A1c (4.3-6.0) % Lactic Acid (0.4-2.0) mmol/L Calcium (8.5-10.1) mg/dL Phosphorus (2.5-4.9) mg/dL Magnesium (1.5-2.5) mg/dL Total Bilirubin (0.2-1.0) mg/dL AST (15-37) U/L ALT (10-53) U/L Alkaline Phosphatase (45-117) U/L Total Creatine Kinase (26-192) U/L CK-MB (CK-2) (0.5-3.6) ng/mL CK-MB (CK-2) % (0.0-4.0) % Troponin I (0.02-0.05) ng/mL Total Protein (6.4-8.2) g/dL Albumin (3.4-5.0) g/dL Vit D 1,25-Dihydroxy (18-78) pg/mL Beta-Hydroxybutyric Acd (0.00-0.39) mmol/L Urine Color (Yellw/Straw) Urine Clarity (Clear) Urine pH (5.0-8.5) Ur Specific [place] (1.002-1.035) Urine Protein (Neg-Trace) mg/dL Urine Glucose (UA) (Negative) mg/dL Urine Ketones (Negative) mg/dL Urine Occult Blood (Negative) Urine Nitrate (Negative) Urine Bilirubin (Negative) Urine Urobilinogen (Less than 2) mg/dL Ur Leukocyte Esterase (Negative) Urine RBC (0-3) /hpf Urine WBC (0-5) /hpf Ur Squamous Epith Cells (0-5) /hpf Urine Bacteria (None) /hpf Urine Mucus (Occasional) /lpf Micro UA Comment Ur Microscopic Review Urine Culture Comments Nasal Screen MRSA (PCR) (Negative) 08/03/18 08/03/18 08/03/18 Range/Units 15:08 15:18 16:22 WBC (4.0-11.0) th/mm3 RBC (4.00-5.30) mil/mm3 Hgb (11.6-15.3) gm/dL Hct (35.0-46.0) % MCV (80.0-100.0) fL MCH (27.0-34.0) pg MCHC (32.0-36.0) % RDW (11.6-17.2) % Plt Count (150-450) th/mm3 MPV (7.0-11.0) fL Prelim Diff (Auto) Neut % (Auto) (16.0-70.0) % Lymph % (Auto) (9.0-44.0) % Piatt % (Auto) (0.0-8.0) % Eos % (Auto) (0.0-4.0) % Baso % (Auto) (0.0-2.0) % Neut # (Auto) (1.8-7.7) th/mm3 Lymph # (Auto) (1.0-4.8) th/mm3 Piatt # (Auto) (0.0-0.9) th/mm3 Eos # (Auto) (0.0-0.4) th/mm3 Baso # (Auto) (0.0-0.2) th/mm3 WBC Differential Seg Neuts % (Manual) (16-70) % Band Neuts % (Manual) (0-6) % Lymphocytes % (Manual) (9-44) % Monocytes % (Manual) (0-8) % Metamyelocytes % (Man) (0-1) % Abs Neuts (Manual) (1.8-7.7) th/mm3 Differential Comment Toxic Vacuolation (None) Platelet Estimate (Normal) Platelet Morphology (Normal) PT (9.8-11.6) sec INR Ratio APTT (24.3-30.1) sec D-Dimer Quant (PE/DVT) (0.00-0.50) mg/L FEU Puncture Site Patient Temperature O2 Saturation (90-100) % ABG pH (7.380-7.420) ABG pCO2 (38-42) mmHg ABG pO2 (61-120) mmHg ABG HCO3 (22-26) mmol/L ABG O2 Content (12.0-20.0) Vol % ABG Base Excess (-2-2) mmol/L ABG Methemoglobin (0-2) % Tej Test Hemoglobin (12.0-16.0) G/DL Carboxyhemoglobin (0-4) % O2 Delivery Device Liter Flow L/M Critical Value Sodium 144 (136-145) meq/L Potassium 3.7 (3.5-5.1) meq/L Chloride 122 H (98-107) meq/L Carbon Dioxide 13.6 L (21.0-32.0) meq/L Anion Gap 8 (5-15) meq/L BUN 18 (7-18) mg/dL Creatinine 0.59 (0.50-1.00) mg/dL Estimated GFR Greater than 89 (>89) mL/min POC Glucose 199 H 247 H (68-110) mg/dl Random Glucose 204 H D (74-106) mg/dL Hemoglobin A1c (4.3-6.0) % Lactic Acid (0.4-2.0) mmol/L Calcium 8.5 (8.5-10.1) mg/dL Phosphorus 1.2 L (2.5-4.9) mg/dL Magnesium 2.3 (1.5-2.5) mg/dL Total Bilirubin (0.2-1.0) mg/dL AST (15-37) U/L ALT (10-53) U/L Alkaline Phosphatase (45-117) U/L Total Creatine Kinase (26-192) U/L CK-MB (CK-2) (0.5-3.6) ng/mL CK-MB (CK-2) % (0.0-4.0) % Troponin I (0.02-0.05) ng/mL Total Protein (6.4-8.2) g/dL Albumin (3.4-5.0) g/dL Vit D 1,25-Dihydroxy (18-78) pg/mL Beta-Hydroxybutyric Acd (0.00-0.39) mmol/L Urine Color (Yellw/Straw) Urine Clarity (Clear) Urine pH (5.0-8.5) Ur Specific [place] (1.002-1.035) Urine Protein (Neg-Trace) mg/dL Urine Glucose (UA) (Negative) mg/dL Urine Ketones (Negative) mg/dL Urine Occult Blood (Negative) Urine Nitrate (Negative) Urine Bilirubin (Negative) Urine Urobilinogen (Less than 2) mg/dL Ur Leukocyte Esterase (Negative) Urine RBC (0-3) /hpf Urine WBC (0-5) /hpf Ur Squamous Epith Cells (0-5) /hpf Urine Bacteria (None) /hpf Urine Mucus (Occasional) /lpf Micro UA Comment Ur Microscopic Review Urine Culture Comments Nasal Screen MRSA (PCR) (Negative) 08/03/18 08/03/18 08/03/18 Range/Units 17:02 18:15 19:28 WBC (4.0-11.0) th/mm3 RBC (4.00-5.30) mil/mm3 Hgb (11.6-15.3) gm/dL Hct (35.0-46.0) % MCV (80.0-100.0) fL MCH (27.0-34.0) pg MCHC (32.0-36.0) % RDW (11.6-17.2) % Plt Count (150-450) th/mm3 MPV (7.0-11.0) fL Prelim Diff (Auto) Neut % (Auto) (16.0-70.0) % Lymph % (Auto) (9.0-44.0) % Piatt % (Auto) (0.0-8.0) % Eos % (Auto) (0.0-4.0) % Baso % (Auto) (0.0-2.0) % Neut # (Auto) (1.8-7.7) th/mm3 Lymph # (Auto) (1.0-4.8) th/mm3 Piatt # (Auto) (0.0-0.9) th/mm3 Eos # (Auto) (0.0-0.4) th/mm3 Baso # (Auto) (0.0-0.2) th/mm3 WBC Differential Seg Neuts % (Manual) (16-70) % Band Neuts % (Manual) (0-6) % Lymphocytes % (Manual) (9-44) % Monocytes % (Manual) (0-8) % Metamyelocytes % (Man) (0-1) % Abs Neuts (Manual) (1.8-7.7) th/mm3 Differential Comment Toxic Vacuolation (None) Platelet Estimate (Normal) Platelet Morphology (Normal) PT (9.8-11.6) sec INR Ratio APTT (24.3-30.1) sec D-Dimer Quant (PE/DVT) (0.00-0.50) mg/L FEU Puncture Site Patient Temperature O2 Saturation (90-100) % ABG pH (7.380-7.420) ABG pCO2 (38-42) mmHg ABG pO2 (61-120) mmHg ABG HCO3 (22-26) mmol/L ABG O2 Content (12.0-20.0) Vol % ABG Base Excess (-2-2) mmol/L ABG Methemoglobin (0-2) % Tej Test Hemoglobin (12.0-16.0) G/DL Carboxyhemoglobin (0-4) % O2 Delivery Device Liter Flow L/M Critical Value Sodium (136-145) meq/L Potassium (3.5-5.1) meq/L Chloride (98-107) meq/L Carbon Dioxide (21.0-32.0) meq/L Anion Gap (5-15) meq/L BUN (7-18) mg/dL Creatinine (0.50-1.00) mg/dL Estimated GFR (>89) mL/min POC Glucose 278 H 325 H 309 H (68-110) mg/dl Random Glucose (74-106) mg/dL Hemoglobin A1c (4.3-6.0) % Lactic Acid (0.4-2.0) mmol/L Calcium (8.5-10.1) mg/dL Phosphorus (2.5-4.9) mg/dL Magnesium (1.5-2.5) mg/dL Total Bilirubin (0.2-1.0) mg/dL AST (15-37) U/L ALT (10-53) U/L Alkaline Phosphatase (45-117) U/L Total Creatine Kinase (26-192) U/L CK-MB (CK-2) (0.5-3.6) ng/mL CK-MB (CK-2) % (0.0-4.0) % Troponin I (0.02-0.05) ng/mL Total Protein (6.4-8.2) g/dL Albumin (3.4-5.0) g/dL Vit D 1,25-Dihydroxy (18-78) pg/mL Beta-Hydroxybutyric Acd (0.00-0.39) mmol/L Urine Color (Yellw/Straw) Urine Clarity (Clear) Urine pH (5.0-8.5) Ur Specific [place] (1.002-1.035) Urine Protein (Neg-Trace) mg/dL Urine Glucose (UA) (Negative) mg/dL Urine Ketones (Negative) mg/dL Urine Occult Blood (Negative) Urine Nitrate (Negative) Urine Bilirubin (Negative) Urine Urobilinogen (Less than 2) mg/dL Ur Leukocyte Esterase (Negative) Urine RBC (0-3) /hpf Urine WBC (0-5) /hpf Ur Squamous Epith Cells (0-5) /hpf Urine Bacteria (None) /hpf Urine Mucus (Occasional) /lpf Micro UA Comment Ur Microscopic Review Urine Culture Comments Nasal Screen MRSA (PCR) (Negative) 08/03/18 08/03/18 08/04/18 Range/Units 21:00 22:26 02:40 WBC (4.0-11.0) th/mm3 RBC (4.00-5.30) mil/mm3 Hgb (11.6-15.3) gm/dL Hct (35.0-46.0) % MCV (80.0-100.0) fL MCH (27.0-34.0) pg MCHC (32.0-36.0) % RDW (11.6-17.2) % Plt Count (150-450) th/mm3 MPV (7.0-11.0) fL Prelim Diff (Auto) Neut % (Auto) (16.0-70.0) % Lymph % (Auto) (9.0-44.0) % Piatt % (Auto) (0.0-8.0) % Eos % (Auto) (0.0-4.0) % Baso % (Auto) (0.0-2.0) % Neut # (Auto) (1.8-7.7) th/mm3 Lymph # (Auto) (1.0-4.8) th/mm3 Piatt # (Auto) (0.0-0.9) th/mm3 Eos # (Auto) (0.0-0.4) th/mm3 Baso # (Auto) (0.0-0.2) th/mm3 WBC Differential Seg Neuts % (Manual) (16-70) % Band Neuts % (Manual) (0-6) % Lymphocytes % (Manual) (9-44) % Monocytes % (Manual) (0-8) % Metamyelocytes % (Man) (0-1) % Abs Neuts (Manual) (1.8-7.7) th/mm3 Differential Comment Toxic Vacuolation (None) Platelet Estimate (Normal) Platelet Morphology (Normal) PT (9.8-11.6) sec INR Ratio APTT (24.3-30.1) sec D-Dimer Quant (PE/DVT) (0.00-0.50) mg/L FEU Puncture Site Patient Temperature O2 Saturation (90-100) % ABG pH (7.380-7.420) ABG pCO2 (38-42) mmHg ABG pO2 (61-120) mmHg ABG HCO3 (22-26) mmol/L ABG O2 Content (12.0-20.0) Vol % ABG Base Excess (-2-2) mmol/L ABG Methemoglobin (0-2) % Tej Test Hemoglobin (12.0-16.0) G/DL Carboxyhemoglobin (0-4) % O2 Delivery Device Liter Flow L/M Critical Value Sodium 146 H (136-145) meq/L Potassium 3.5 (3.5-5.1) meq/L Chloride 114 H D (98-107) meq/L Carbon Dioxide 18.6 L (21.0-32.0) meq/L Anion Gap 13 (5-15) meq/L BUN 14 (7-18) mg/dL Creatinine 0.53 (0.50-1.00) mg/dL Estimated GFR Greater than 89 (>89) mL/min POC Glucose 287 H 241 H (68-110) mg/dl Random Glucose 289 H (74-106) mg/dL Hemoglobin A1c (4.3-6.0) % Lactic Acid (0.4-2.0) mmol/L Calcium 7.8 L (8.5-10.1) mg/dL Phosphorus 1.4 L (2.5-4.9) mg/dL Magnesium 2.2 (1.5-2.5) mg/dL Total Bilirubin (0.2-1.0) mg/dL AST (15-37) U/L ALT (10-53) U/L Alkaline Phosphatase (45-117) U/L Total Creatine Kinase (26-192) U/L CK-MB (CK-2) (0.5-3.6) ng/mL CK-MB (CK-2) % (0.0-4.0) % Troponin I (0.02-0.05) ng/mL Total Protein (6.4-8.2) g/dL Albumin (3.4-5.0) g/dL Vit D 1,25-Dihydroxy (18-78) pg/mL Beta-Hydroxybutyric Acd 0.68 H (0.00-0.39) mmol/L Urine Color (Yellw/Straw) Urine Clarity (Clear) Urine pH (5.0-8.5) Ur Specific [place] (1.002-1.035) Urine Protein (Neg-Trace) mg/dL Urine Glucose (UA) (Negative) mg/dL Urine Ketones (Negative) mg/dL Urine Occult Blood (Negative) Urine Nitrate (Negative) Urine Bilirubin (Negative) Urine Urobilinogen (Less than 2) mg/dL Ur Leukocyte Esterase (Negative) Urine RBC (0-3) /hpf Urine WBC (0-5) /hpf Ur Squamous Epith Cells (0-5) /hpf Urine Bacteria (None) /hpf Urine Mucus (Occasional) /lpf Micro UA Comment Ur Microscopic Review Urine Culture Comments Nasal Screen MRSA (PCR) (Negative) 08/04/18 08/04/18 08/04/18 Range/Units 07:48 09:13 09:13 WBC 9.2 (4.0-11.0) th/mm3 RBC 3.91 L (4.00-5.30) mil/mm3 Hgb 12.4 (11.6-15.3) gm/dL Hct 37.4 (35.0-46.0) % MCV 95.7 (80.0-100.0) fL MCH 31.7 (27.0-34.0) pg MCHC 33.2 (32.0-36.0) % RDW 14.0 (11.6-17.2) % Plt Count 143 L (150-450) th/mm3 MPV 8.9 (7.0-11.0) fL Prelim Diff (Auto) Neut % (Auto) 75.4 H (16.0-70.0) % Lymph % (Auto) 18.0 (9.0-44.0) % Piatt % (Auto) 5.6 (0.0-8.0) % Eos % (Auto) 0.8 (0.0-4.0) % Baso % (Auto) 0.2 (0.0-2.0) % Neut # (Auto) 6.9 (1.8-7.7) th/mm3 Lymph # (Auto) 1.7 (1.0-4.8) th/mm3 Piatt # (Auto) 0.5 (0.0-0.9) th/mm3 Eos # (Auto) 0.1 (0.0-0.4) th/mm3 Baso # (Auto) 0.0 (0.0-0.2) th/mm3 WBC Differential . Seg Neuts % (Manual) (16-70) % Band Neuts % (Manual) (0-6) % Lymphocytes % (Manual) (9-44) % Monocytes % (Manual) (0-8) % Metamyelocytes % (Man) (0-1) % Abs Neuts (Manual) (1.8-7.7) th/mm3 Differential Comment Auto diff final Toxic Vacuolation (None) Platelet Estimate (Normal) Platelet Morphology (Normal) PT (9.8-11.6) sec INR Ratio APTT (24.3-30.1) sec D-Dimer Quant (PE/DVT) (0.00-0.50) mg/L FEU Puncture Site Patient Temperature O2 Saturation (90-100) % ABG pH (7.380-7.420) ABG pCO2 (38-42) mmHg ABG pO2 (61-120) mmHg ABG HCO3 (22-26) mmol/L ABG O2 Content (12.0-20.0) Vol % ABG Base Excess (-2-2) mmol/L ABG Methemoglobin (0-2) % Tej Test Hemoglobin (12.0-16.0) G/DL Carboxyhemoglobin (0-4) % O2 Delivery Device Liter Flow L/M Critical Value Sodium Cancelled (136-145) meq/L Potassium Cancelled (3.5-5.1) meq/L Chloride Cancelled (98-107) meq/L Carbon Dioxide Cancelled (21.0-32.0) meq/L Anion Gap Cancelled (5-15) meq/L BUN Cancelled (7-18) mg/dL Creatinine Cancelled (0.50-1.00) mg/dL Estimated GFR Cancelled (>89) mL/min POC Glucose 239 H (68-110) mg/dl Random Glucose Cancelled (74-106) mg/dL Hemoglobin A1c (4.3-6.0) % Lactic Acid (0.4-2.0) mmol/L Calcium Cancelled (8.5-10.1) mg/dL Phosphorus Cancelled (2.5-4.9) mg/dL Magnesium Cancelled (1.5-2.5) mg/dL Total Bilirubin (0.2-1.0) mg/dL AST (15-37) U/L ALT (10-53) U/L Alkaline Phosphatase (45-117) U/L Total Creatine Kinase (26-192) U/L CK-MB (CK-2) (0.5-3.6) ng/mL CK-MB (CK-2) % (0.0-4.0) % Troponin I (0.02-0.05) ng/mL Total Protein (6.4-8.2) g/dL Albumin (3.4-5.0) g/dL Vit D 1,25-Dihydroxy (18-78) pg/mL Beta-Hydroxybutyric Acd (0.00-0.39) mmol/L Urine Color (Yellw/Straw) Urine Clarity (Clear) Urine pH (5.0-8.5) Ur Specific [place] (1.002-1.035) Urine Protein (Neg-Trace) mg/dL Urine Glucose (UA) (Negative) mg/dL Urine Ketones (Negative) mg/dL Urine Occult Blood (Negative) Urine Nitrate (Negative) Urine Bilirubin (Negative) Urine Urobilinogen (Less than 2) mg/dL Ur Leukocyte Esterase (Negative) Urine RBC (0-3) /hpf Urine WBC (0-5) /hpf Ur Squamous Epith Cells (0-5) /hpf Urine Bacteria (None) /hpf Urine Mucus (Occasional) /lpf Micro UA Comment Ur Microscopic Review Urine Culture Comments Nasal Screen MRSA (PCR) (Negative) 08/04/18 08/04/18 08/04/18 Range/Units 09:13 12:11 17:46 WBC (4.0-11.0) th/mm3 RBC (4.00-5.30) mil/mm3 Hgb (11.6-15.3) gm/dL Hct (35.0-46.0) % MCV (80.0-100.0) fL MCH (27.0-34.0) pg MCHC (32.0-36.0) % RDW (11.6-17.2) % Plt Count (150-450) th/mm3 MPV (7.0-11.0) fL Prelim Diff (Auto) Neut % (Auto) (16.0-70.0) % Lymph % (Auto) (9.0-44.0) % Piatt % (Auto) (0.0-8.0) % Eos % (Auto) (0.0-4.0) % Baso % (Auto) (0.0-2.0) % Neut # (Auto) (1.8-7.7) th/mm3 Lymph # (Auto) (1.0-4.8) th/mm3 Piatt # (Auto) (0.0-0.9) th/mm3 Eos # (Auto) (0.0-0.4) th/mm3 Baso # (Auto) (0.0-0.2) th/mm3 WBC Differential Seg Neuts % (Manual) (16-70) % Band Neuts % (Manual) (0-6) % Lymphocytes % (Manual) (9-44) % Monocytes % (Manual) (0-8) % Metamyelocytes % (Man) (0-1) % Abs Neuts (Manual) (1.8-7.7) th/mm3 Differential Comment Toxic Vacuolation (None) Platelet Estimate (Normal) Platelet Morphology (Normal) PT (9.8-11.6) sec INR Ratio APTT (24.3-30.1) sec D-Dimer Quant (PE/DVT) (0.00-0.50) mg/L FEU Puncture Site Patient Temperature O2 Saturation (90-100) % ABG pH (7.380-7.420) ABG pCO2 (38-42) mmHg ABG pO2 (61-120) mmHg ABG HCO3 (22-26) mmol/L ABG O2 Content (12.0-20.0) Vol % ABG Base Excess (-2-2) mmol/L ABG Methemoglobin (0-2) % Tej Test Hemoglobin (12.0-16.0) G/DL Carboxyhemoglobin (0-4) % O2 Delivery Device Liter Flow L/M Critical Value Sodium 141 (136-145) meq/L Potassium 3.3 L (3.5-5.1) meq/L Chloride 113 H (98-107) meq/L Carbon Dioxide 19.0 L (21.0-32.0) meq/L Anion Gap 9 (5-15) meq/L BUN 10 (7-18) mg/dL Creatinine 0.47 L (0.50-1.00) mg/dL Estimated GFR Greater than 89 (>89) mL/min POC Glucose 267 H 88 (68-110) mg/dl Random Glucose 238 H (74-106) mg/dL Hemoglobin A1c (4.3-6.0) % Lactic Acid (0.4-2.0) mmol/L Calcium 8.0 L (8.5-10.1) mg/dL Phosphorus 1.1 L (2.5-4.9) mg/dL Magnesium 1.9 (1.5-2.5) mg/dL Total Bilirubin (0.2-1.0) mg/dL AST (15-37) U/L ALT (10-53) U/L Alkaline Phosphatase (45-117) U/L Total Creatine Kinase (26-192) U/L CK-MB (CK-2) (0.5-3.6) ng/mL CK-MB (CK-2) % (0.0-4.0) % Troponin I (0.02-0.05) ng/mL Total Protein (6.4-8.2) g/dL Albumin (3.4-5.0) g/dL Vit D 1,25-Dihydroxy (18-78) pg/mL Beta-Hydroxybutyric Acd 0.13 D (0.00-0.39) mmol/L Urine Color (Yellw/Straw) Urine Clarity (Clear) Urine pH (5.0-8.5) Ur Specific [place] (1.002-1.035) Urine Protein (Neg-Trace) mg/dL Urine Glucose (UA) (Negative) mg/dL Urine Ketones (Negative) mg/dL Urine Occult Blood (Negative) Urine Nitrate (Negative) Urine Bilirubin (Negative) Urine Urobilinogen (Less than 2) mg/dL Ur Leukocyte Esterase (Negative) Urine RBC (0-3) /hpf Urine WBC (0-5) /hpf Ur Squamous Epith Cells (0-5) /hpf Urine Bacteria (None) /hpf Urine Mucus (Occasional) /lpf Micro UA Comment Ur Microscopic Review Urine Culture Comments Nasal Screen MRSA (PCR) (Negative) 08/04/18 08/05/18 08/05/18 Range/Units 20:34 08:22 10:36 WBC (4.0-11.0) th/mm3 RBC (4.00-5.30) mil/mm3 Hgb (11.6-15.3) gm/dL Hct (35.0-46.0) % MCV (80.0-100.0) fL MCH (27.0-34.0) pg MCHC (32.0-36.0) % RDW (11.6-17.2) % Plt Count (150-450) th/mm3 MPV (7.0-11.0) fL Prelim Diff (Auto) Neut % (Auto) (16.0-70.0) % Lymph % (Auto) (9.0-44.0) % Piatt % (Auto) (0.0-8.0) % Eos % (Auto) (0.0-4.0) % Baso % (Auto) (0.0-2.0) % Neut # (Auto) (1.8-7.7) th/mm3 Lymph # (Auto) (1.0-4.8) th/mm3 Piatt # (Auto) (0.0-0.9) th/mm3 Eos # (Auto) (0.0-0.4) th/mm3 Baso # (Auto) (0.0-0.2) th/mm3 WBC Differential Seg Neuts % (Manual) (16-70) % Band Neuts % (Manual) (0-6) % Lymphocytes % (Manual) (9-44) % Monocytes % (Manual) (0-8) % Metamyelocytes % (Man) (0-1) % Abs Neuts (Manual) (1.8-7.7) th/mm3 Differential Comment Toxic Vacuolation (None) Platelet Estimate (Normal) Platelet Morphology (Normal) PT (9.8-11.6) sec INR Ratio APTT (24.3-30.1) sec D-Dimer Quant (PE/DVT) (0.00-0.50) mg/L FEU Puncture Site Patient Temperature O2 Saturation (90-100) % ABG pH (7.380-7.420) ABG pCO2 (38-42) mmHg ABG pO2 (61-120) mmHg ABG HCO3 (22-26) mmol/L ABG O2 Content (12.0-20.0) Vol % ABG Base Excess (-2-2) mmol/L ABG Methemoglobin (0-2) % Tej Test Hemoglobin (12.0-16.0) G/DL Carboxyhemoglobin (0-4) % O2 Delivery Device Liter Flow L/M Critical Value Sodium 143 (136-145) meq/L Potassium 3.1 L (3.5-5.1) meq/L Chloride 107 (98-107) meq/L Carbon Dioxide 28.5 D (21.0-32.0) meq/L Anion Gap 8 (5-15) meq/L BUN 8 (7-18) mg/dL Creatinine 0.32 L (0.50-1.00) mg/dL Estimated GFR Greater than 89 (>89) mL/min POC Glucose 299 H 116 H (68-110) mg/dl Random Glucose 181 H (74-106) mg/dL Hemoglobin A1c (4.3-6.0) % Lactic Acid (0.4-2.0) mmol/L Calcium 7.8 L (8.5-10.1) mg/dL Phosphorus (2.5-4.9) mg/dL Magnesium (1.5-2.5) mg/dL Total Bilirubin (0.2-1.0) mg/dL AST (15-37) U/L ALT (10-53) U/L Alkaline Phosphatase (45-117) U/L Total Creatine Kinase (26-192) U/L CK-MB (CK-2) (0.5-3.6) ng/mL CK-MB (CK-2) % (0.0-4.0) % Troponin I (0.02-0.05) ng/mL Total Protein (6.4-8.2) g/dL Albumin (3.4-5.0) g/dL Vit D 1,25-Dihydroxy (18-78) pg/mL Beta-Hydroxybutyric Acd (0.00-0.39) mmol/L Urine Color (Yellw/Straw) Urine Clarity (Clear) Urine pH (5.0-8.5) Ur Specific [place] (1.002-1.035) Urine Protein (Neg-Trace) mg/dL Urine Glucose (UA) (Negative) mg/dL Urine Ketones (Negative) mg/dL Urine Occult Blood (Negative) Urine Nitrate (Negative) Urine Bilirubin (Negative) Urine Urobilinogen (Less than 2) mg/dL Ur Leukocyte Esterase (Negative) Urine RBC (0-3) /hpf Urine WBC (0-5) /hpf Ur Squamous Epith Cells (0-5) /hpf Urine Bacteria (None) /hpf Urine Mucus (Occasional) /lpf Micro UA Comment Ur Microscopic Review Urine Culture Comments Nasal Screen MRSA (PCR) (Negative) 08/05/18 Range/Units 12:26 WBC (4.0-11.0) th/mm3 RBC (4.00-5.30) mil/mm3 Hgb (11.6-15.3) gm/dL Hct (35.0-46.0) % MCV (80.0-100.0) fL MCH (27.0-34.0) pg MCHC (32.0-36.0) % RDW (11.6-17.2) % Plt Count (150-450) th/mm3 MPV (7.0-11.0) fL Prelim Diff (Auto) Neut % (Auto) (16.0-70.0) % Lymph % (Auto) (9.0-44.0) % Piatt % (Auto) (0.0-8.0) % Eos % (Auto) (0.0-4.0) % Baso % (Auto) (0.0-2.0) % Neut # (Auto) (1.8-7.7) th/mm3 Lymph # (Auto) (1.0-4.8) th/mm3 Piatt # (Auto) (0.0-0.9) th/mm3 Eos # (Auto) (0.0-0.4) th/mm3 Baso # (Auto) (0.0-0.2) th/mm3 WBC Differential Seg Neuts % (Manual) (16-70) % Band Neuts % (Manual) (0-6) % Lymphocytes % (Manual) (9-44) % Monocytes % (Manual) (0-8) % Metamyelocytes % (Man) (0-1) % Abs Neuts (Manual) (1.8-7.7) th/mm3 Differential Comment Toxic Vacuolation (None) Platelet Estimate (Normal) Platelet Morphology (Normal) PT (9.8-11.6) sec INR Ratio APTT (24.3-30.1) sec D-Dimer Quant (PE/DVT) (0.00-0.50) mg/L FEU Puncture Site Patient Temperature O2 Saturation (90-100) % ABG pH (7.380-7.420) ABG pCO2 (38-42) mmHg ABG pO2 (61-120) mmHg ABG HCO3 (22-26) mmol/L ABG O2 Content (12.0-20.0) Vol % ABG Base Excess (-2-2) mmol/L ABG Methemoglobin (0-2) % Tej Test Hemoglobin (12.0-16.0) G/DL Carboxyhemoglobin (0-4) % O2 Delivery Device Liter Flow L/M Critical Value Sodium (136-145) meq/L Potassium (3.5-5.1) meq/L Chloride (98-107) meq/L Carbon Dioxide (21.0-32.0) meq/L Anion Gap (5-15) meq/L BUN (7-18) mg/dL Creatinine (0.50-1.00) mg/dL Estimated GFR (>89) mL/min POC Glucose 171 H (68-110) mg/dl Random Glucose (74-106) mg/dL Hemoglobin A1c (4.3-6.0) % Lactic Acid (0.4-2.0) mmol/L Calcium (8.5-10.1) mg/dL Phosphorus (2.5-4.9) mg/dL Magnesium (1.5-2.5) mg/dL Total Bilirubin (0.2-1.0) mg/dL AST (15-37) U/L ALT (10-53) U/L Alkaline Phosphatase (45-117) U/L Total Creatine Kinase (26-192) U/L CK-MB (CK-2) (0.5-3.6) ng/mL CK-MB (CK-2) % (0.0-4.0) % Troponin I (0.02-0.05) ng/mL Total Protein (6.4-8.2) g/dL Albumin (3.4-5.0) g/dL Vit D 1,25-Dihydroxy (18-78) pg/mL Beta-Hydroxybutyric Acd (0.00-0.39) mmol/L Urine Color (Yellw/Straw) Urine Clarity (Clear) Urine pH (5.0-8.5) Ur Specific [place] (1.002-1.035) Urine Protein (Neg-Trace) mg/dL Urine Glucose (UA) (Negative) mg/dL Urine Ketones (Negative) mg/dL Urine Occult Blood (Negative) Urine Nitrate (Negative) Urine Bilirubin (Negative) Urine Urobilinogen (Less than 2) mg/dL Ur Leukocyte Esterase (Negative) Urine RBC (0-3) /hpf Urine WBC (0-5) /hpf Ur Squamous Epith Cells (0-5) /hpf Urine Bacteria (None) /hpf Urine Mucus (Occasional) /lpf Micro UA Comment Ur Microscopic Review Urine Culture Comments Nasal Screen MRSA (PCR) (Negative) Imaging Data Radiologist's impression: Chest X-Ray 08/01/18 18:48 CONCLUSION: Patchy infiltrates left lower lobe. Treatment and follow-up to resolution. Hip CT 08/01/18 18:48 CONCLUSION: 1. Right intratrochanteric femoral neck fracture. 2. Several sclerotic areas seen in the pelvic bones and proximal right femur. These are nonspecific. They could represent benign bone islands versus other causes for sclerotic lesions including metastatic lesions. Chest CTA 08/02/18 00:00 CONCLUSION: 1. No PE is identified. 2. Consolidation within the left lower lobe with a mild groundglass opacity in the left upper lobe. This could represent an infectious process in the appropriate clinical setting. Suggest follow-up to confirm resolution. 3. Bilateral thyroid nodules measuring up to 2.5 cm on the right. Consider thyroid ultrasound for further characterization on an outpatient elective basis. Femur X-Ray 08/02/18 00:00 CONCLUSION: Limited images as detailed above. Abdomen X-Ray 08/03/18 06:30 CONCLUSION: No acute abdominal abnormality is identified. Discharge Plan Discharge Disposition Patient Disposition: 03 Discharge to SNF Discharge Condition Condition: Good Discharge Order Discharge Orders: Discharge Order (Routine); Ordered 08/05/18 Ordered By: Jes Acevedo Discharge Details Anticipated Discharge Date: 08/05/18 Discharge Comment: Patient will need routine wound care at SNF. Diagnosis: Closed intertrochanteric fracture of right hip, Left lower lobe pneumonia Physicians Team ED Provider: Juanito Whitman Primary Care Provider: Karlos Simmons Attending Provider: Jes Acevedo Other Providers: Osman Wilkinson ; [facility],Insurance ; Jeancarlos Molina ; [facility],[place] Discharge Interventions Interventions: ED Discharge Assessment Last Done: 08/02/18 02:10 Status ED Status: Left Department Discharge Information Discharge Date/Time: 08/02/18 02:12
--- NOTE | 2018-08-01 19:07 | XR ---
EXAM DATE: 08/01/2018 6:48 PM EDT AGE/SEX: 47 years / Female INDICATIONS: Short of breath. CLINICAL DATA: This is the patient's initial encounter. Patient reports that signs and symptoms have been present for 1 day and indicates a pain score of 0/10. MEDICAL/SURGICAL HISTORY: Non-responsive. Abdominal aortic aneurysm repair. COMPARISON: No prior exams available for comparison. FINDINGS: A single AP view of the chest demonstrates left basilar patchy opacities. Right lung clear. Heart nor mal in size. The cardiomediastinal contours are unremarkable. Osseous structures are intact. CONCLUSION: Patchy infiltrates left lower lobe. Treatment and follow-up to resolution. Electronically signed by: Ranjith Ruiz MD 08/01/2018 7:05 PM EDT
[2018-08-01] MEDS ORDERED: Azithromycin Inj 500 MG in Sodium Chlor 0.9% Inj 250 ML IV.SIG ONE (19:13)
[2018-08-01 19:40] LABS: Baso % (Auto) 0.1 % (0.0-2.0); Hematocrit 50.5 % (35.0-46.0); Hemoglobin 16.8 gm/dL (11.6-15.3); Lymph # (Auto) 0.9 th/mm3 (1.0-4.8); Lymph % (Auto) 7.9 % (9.0-44.0); Mean Corpuscular HGB Conc 33.3 % (32.0-36.0); Mean Corpuscular Hemoglobin 31.6 pg (27.0-34.0); Mean Corpuscular Volume 94.9 fL (80.0-100.0); Mean Platelet Volume 8.6 fL (7.0-11.0); Mono # (Auto) 0.5 th/mm3 (0.0-0.9); Mono % (Auto) 4.2 % (0.0-8.0); Neut # (Auto) 10.5 th/mm3 (1.8-7.7); Neut % (Auto) 87.8 % (16.0-70.0); Platelet Count 177 th/mm3 (150-450); Red Blood Count 5.33 mil/mm3 (4.00-5.30); Red Cell Distribution Width 13.9 % (11.6-17.2); White Blood Count 11.9 th/mm3 (4.0-11.0)
--- NOTE | 2018-08-01 20:09 | CT ---
EXAM DATE: 08/01/2018 7:04 PM EDT AGE/SEX: 47 years / Female INDICATIONS: Right hip pain post fall. CLINICAL DATA: This is the patient's initial encounter. Patient reports that signs and symptoms have been present for 1 day and indicates a pain score of 10/10. MEDICAL/SURGICAL HISTORY: Hypertension. Diabetes. Rheumatoid arthritis. Diabetes. Muscular dystr ophy. None. RADIATION DOSE: 6.83 CTDI (mGy) COMPARISON: No prior exams available for comparison. TECHNIQUE: Multiple contiguous axial images were acquired using a multirow detector CT scanner witho ut contrast. Multiplanar reconstruction was performed in the sagittal and coronal planes. Using aut omated exposure control and adjustment of the mA and/or kV according to patient size, radiation dose was kept as low as reasonably achievable to obtain optimal diagnostic quality images. DICOM format i mage data is available electronically for review and comparison. FINDINGS: Bones: There is an intertrochanteric right femoral neck fracture. No other possible acute fracture i s seen. There are several sclerotic areas seen in the pelvic bones bilaterally. There is a small 0.5 mm sclerotic areas seen at the anterior aspect of the right femoral neck in the region of the fractur e. There is a small sclerotic area in the posterior right femoral head away from the fracture. The la rgest area is seen in the posterior medial left iliac bone measuring 1.8 cm. Joints: No significant arthropathy or bony hypertrophy is seen. The articular surface of the femora l head is smooth. Soft Tissues: There is some edema/hematoma seen around the fracture site. Other: No foreign bodies seen. CONCLUSION: 1. Right intratrochanteric femoral neck fracture. 2. Several sclerotic areas seen in the pelvic bones and proximal right femur. These are nonspecific. They could represent benign bone islands versus other causes for sclerotic lesions including metasta tic lesions. Electronically signed by: Jv Bacon MD 08/01/2018 8:07 PM EDT
[2018-08-01 20:15] LABS: Alanine Aminotransferase 35 U/L (10-53)
[2018-08-01 20:18] LABS: Lymphocytes 12 % (9-44); Monocytes 2 % (0-8)
[2018-08-01 20:19] LABS: Alkaline Phosphatase 97 U/L (45-117); Total Protein 8.5 g/dL (6.4-8.2)
[2018-08-01 20:20] LABS: Platelet Estimate Normal (Normal); Platelet Morphology Normal (Normal); Toxic Vacuolation Present
[2018-08-01 20:28] LABS: Albumin 4.1 g/dL (3.4-5.0); Anion Gap 14 meq/L (5-15); Aspartate Aminotransferase 35 U/L (15-37); Blood Urea Nitrogen 11 mg/dL (7-18); Calcium 9.8 mg/dL (8.5-10.1); Carbon Dioxide 20.4 meq/L (21.0-32.0); Chloride 106 meq/L (98-107); Glomerular Filtration Rate Greater Than 89 mL/min (>89); Glucose,Random 291 mg/dL (74-106); Potassium 4.6 meq/L (3.5-5.1); Sodium 140 meq/L (136-145)
[2018-08-01] MEDS ORDERED: Acetaminophen 325 MG Tablet PO PRN (22:50)
--- NOTE | 2018-08-01 22:58 | P.HPIM ---
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 Because patient is nonverbal history was taken by ER physician from the CLIENT SOLUTIONS DIRECTOR that came in with the patient, currently there is no 1 at bedside for questioning. The CLIENT SOLUTIONS DIRECTOR states that the patient uses a wheelchair and fell yesterday during a transfer, outpatient x-ray was completed and showed a questionable nondisplaced right femur fracture. Upon evaluation in the ER lobe pneumonia as well. Due to anoxic history ROS limited, patient is tachycardic, anxious and contracted. Inpatient Certification: I certify that the inpatient services were ordered in accordance with Medicare regulations governing the order. This includes certification that hospital inpatient services are reasonable and necessary and in the case of services not specified as inpatient-only under 42 CFR 419.22(n), that they are appropriately provided as inpatient services in accordance to with the 2-midnight benchmark under 43 CFR 412.3(e) Estimated Total Length of Stay (Days): 3 Plans for Post Hospital Care: SNF Review of Systems All other systems reviewed negative except as stated in HPI PMFSH - History History Provided By: Medical Record, Medical Resident / EMT - Medical History Medical History: Medical History (Last Updated 08/01/18 @ 19:40 by Lavon Payne) Celiac disease Diabetes Epilepsy Generalized anxiety disorder Hypertensive heart disease Major depression Muscular dystrophy Polymyositis Protein malnutrition Rheumatoid arteritis Surgical history unknown - Family History Family History: Family History (Last Updated 08/01/18 @ 23:04 by REZA Munroe) Other Family history unknown - Tobacco History Smoking Status: Unknown if ever smoked - Alcohol History How Often Do You Have a Drink Containing Alcohol: Unable to Obtain - Substance Use History Substance History: Unable to Obtain - Travel History Recent Travel in the [place] Within the Last 8 Weeks: No Recent Travel Out of the Country Within the Last 8 Weeks: No - Immunization History Tetanus Immunization: >5 Years Medications and Allergies Active Medications: Active Medications Acetaminophen (Tylenol) 650 mg PO Q4H PRN PRN Reason: Temp > 100.4 Enoxaparin Sodium (Lovenox Inj) 40 mg SQ Q24H JEN Azithromycin 250 mg/ Sodium (Chloride) 250 mls @ 250 mls/hr IV.SIG Q24H JEN Ceftriaxone Sodium 1,000 mg/ (Sodium Chloride) 100 mls @ 200 mls/hr IV.SIG Q24H JEN Sodium Chloride (Ns Inj) 1,000 mls @ 100 mls/hr IV.CONT .Q10H JEN Ondansetron HCl (Zofran Inj) 4 mg IV.PUSH Q6H PRN PRN Reason: NAUSEA OR VOMITING Sodium Chloride (Ns Flush) 2 ml IV.FLUSH UNSCH PRN PRN Reason: FLUSH AFTER USING IV ACCESS Allergies Allergy/AdvReac Type Severity Reaction Status Date / Time barley Allergy Severe celiac Unverified 06/07/17 13:29 disease gluten Allergy Severe CELIAC Unverified 06/07/17 13:29 DISEASE oats Allergy Severe CELIAC Unverified 06/07/17 13:29 DISEASE wheat Allergy Severe CELIAC Unverified 06/07/17 13:29 DISEASE Home Medications Medication Instructions Recorded Confirmed Type acetaminophen [Tylenol] 650 mg FEEDING TUBE Q6H PRN 08/01/18 08/01/18 History acetaminophen [Tylenol] 650 mg FEEDING TUBE Q6H PRN 08/01/18 08/01/18 History amantadine HCl 200 mg FEEDING TUBE BID 08/01/18 08/01/18 History carbidopa-levodopa [Sinemet] 1 tab FEEDING TUBE BID 08/01/18 08/01/18 History cholecalciferol (vitamin D3) 1,000 unit FEEDING TUBE BID 08/01/18 08/01/18 History lorazepam [Ativan] 0.5 mg FEEDING TUBE DAILY 08/01/18 08/01/18 History lorazepam [Ativan] 1 mg FEEDING TUBE DAILY 08/01/18 08/01/18 History mirtazapine [Remeron] 30 mg FEEDING TUBE HS 08/01/18 08/01/18 History oxycodone-acetaminophen [Percocet] 1 tab FEEDING TUBE Q6H PRN 08/01/18 08/01/18 History prednisone 5 mg FEEDING TUBE DAILY 08/01/18 08/01/18 History vitamin B complex 1 tab FEEDING TUBE DAILY 08/01/18 08/01/18 History Exam Vital signs: Vital Signs 08/01/18 18:46 08/01/18 19:46 Pulse Rate 131 H Respiratory Rate 25 H Blood Pressure 193/95 H Pulse Oximetry 88 L 93 L Intake & Output 08/01/18 08/01/18 08/02/18 06:59 18:59 06:59 Intake Total 2350 / 2350 Balance 2350 / 2350 Weight 40.823 kg Intake: IV 2350 / 2350 Azithromycin Inj 500 MG In NS 250 / 250 Inj 250 ML @ 250 mls/hr IV.SIG ONCE ONE Rx#:[id number] NS Inj 1,000 ML @ Wide Open IV. 1999 SIG BOLUS ONE Rx#:[id number] Rocephin Inj 1,000 MG In NS Inj 100 / 100 100 ML @ 200 mls/hr IV.SIG ONCE ONE Rx#:[id number] Narrative: GENERAL: This is a mal-nourished, non verbal anxious patient. CARDIOVASCULAR: tachy rate and rhythm without murmurs, gallops, or rubs. RESPIRATORY: Clear to auscultation. Breath sounds equal bilaterally. No wheezes , rales, or rhonchi. GASTROINTESTINAL: Abdomen soft, non-tender, nondistended. Normal active bowel sounds, Peg tube in place MUSCULOSKELETAL: Extremities without clubbing, cyanosis, or edema. Contracted NEURO: Alert non verbal, does not follow commands. Results - Labs CBC & Chem 7: 08/01/18 19:20 08/01/18 19:20 Labs: Short CBC 08/01/18 Range/Units 19:20 WBC 11.9 H (4.0-11.0) th/mm3 Hgb 16.8 H (11.6-15.3) gm/dL Hct 50.5 H (35.0-46.0) % Plt Count 177 (150-450) th/mm3 BMP 08/01/18 19:20 Sodium 140 Potassium 4.6 Chloride 106 Carbon Dioxide 20.4 L BUN 11 Creatinine 0.66 Calcium 9.8 Cardiac Enzymes 08/01/18 08/01/18 Range/Units 19:20 19:20 Total Creatine Kinase 455 H (26-192) U/L Troponin I Less than 0.02 L (0.02-0.05) ng/mL Liver Function 08/01/18 Range/Units 19:20 Total Bilirubin 1.3 H (0.2-1.0) mg/dL AST 35 (15-37) U/L ALT 35 (10-53) U/L Alkaline Phosphatase 97 (45-117) U/L Albumin 4.1 (3.4-5.0) g/dL - Imaging Impressions Chest X-Ray 08/01/18 18:48 CONCLUSION: Patchy infiltrates left lower lobe. Treatment and follow-up to resolution. Hip CT 08/01/18 18:48 CONCLUSION: 1. Right intratrochanteric femoral neck fracture. 2. Several sclerotic areas seen in the pelvic bones and proximal right femur. These are nonspecific. They could represent benign bone islands versus other causes for sclerotic lesions including metastatic lesions. Caprini VTE Risk Assessment Caprini VTE Risk Assessment: Moderate/High Risk (score >= 2) Caprini Risk Assessment Model: Point Value = 1 Point Value = 2 Point Value = 3 Point Value = 5 Age 41-60 Minor surgery BMI > 25 kg/m2 Swollen legs Varicose veins or History of unexplained or recurrent spontaneous Oral contraceptives or hormone replacement Sepsis (< 1 month) Serious lung disease, including pneumonia (< 1 month) Abnormal pulmonary function Acute myocardial infarction Congestive heart failure (< 1 month) History of inflammatory bowel disease Medical patient at bed rest Age 61-74 Arthroscopic surgery Major open surgery (> 45 min) Laparoscopic surgery (> 45 min) Malignancy Confined to bed (> 72 hours) Immobilizing plaster cast Central venous access Age >= 75 History of VTE Family history of VTE Factor V Leiden Prothrombin [id number] Lupus anticoagulant Anticardiolipin antibodies Elevated serum homocysteine Heparin-induced thrombocytopenia Other congenital or acquired thrombophilia Stroke (< 1 month) Elective arthroplasty Hip, pelvis, or leg fracture Acute spinal cord injury (< 1 month) Prophylaxis Regimen: Total Risk Factor Score Risk Level Prophylaxis Regimen 0-1 Low Early ambulation 2 Moderate Order ONE of the following: *Sequential Compression Device (SCD) *Heparin 5000 units SQ BID 3-4 Higher Order ONE of the following medications: *Heparin 5000 units SQ TID *Enoxaparin/Lovenox 40 mg SQ daily (WT < 150 kg, CrCl > 30 mL/min) *Enoxaparin/Lovenox 30 mg SQ daily (WT < 150 kg, CrCl > 10-29 mL/min) *Enoxaparin/Lovenox 30 mg SQ BID (WT < 150 kg, CrCl > 30 mL/min) AND/OR *Sequential Compression Device (SCD) 5 or more Highest Order ONE of the following medications: *Heparin 5000 units SQ TID (Preferred with Epidurals) *Enoxaparin/Lovenox 40 mg SQ daily (WT < 150 kg, CrCl > 30 mL/min) *Enoxaparin/Lovenox 30 mg SQ daily (WT < 150 kg, CrCl > 10-29 mL/min) *Enoxaparin/Lovenox 30 mg SQ BID (WT < 150 kg, CrCl > 30 mL/min) AND *Sequential Compression Device (SCD) Assessment and Plan - Plan 47 y/o female with a history of 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 Severe sepsis, tachycardia, tachypnea, source pneumonia, Lactic 3.1 Chest x-ray reviewed and shows patchy infiltrates left lower lobe NS bolus x 2, cont IVF IV antibiotics azithromycin and Rocephin Atrovent nebs ordered Pneumococcal and Legionella antigens ordered d-dimer ordered 14.2, CTA ordered r/o PE Hip fracture, right Reviewed and shows a right intratrochanteric femoral neck fracture Consult orthopedics N.p.o., IVF continue tube feeding after surgery Pain medication with IV morphine Anoxic encephalopathy, chronic Resume home medication Continue tube feeding once no longer n.p.o. Diabetes, chronic Accu-Cheks with sliding scale insulin Other chronic conditions appear stable: Cont home medication DVT prophylaxis: SCDs Discussed Condition With: Patient and RN
[2018-08-01] MEDS ORDERED: Enoxaparin Inj 40 MG/0.4 ML Syringe SQ SCH (23:00)
[2018-08-01 23:18] LABS: CKMB Percent 0.6 % (0.0-4.0); Creatine Kinase MB 2.6 ng/mL (0.5-3.6)
[2018-08-02] MEDS: Sod Chloride 0.9% Inj 1,000 ML IV.CONT SCH ×2 (00:09→10:31)
[2018-08-02] MEDS ORDERED: Sodium Chloride 0.9% 2 ML Flush PRN IV.FLUSH (00:15)
[2018-08-02] MEDS ORDERED: Dextrose 50% in Water 50 ML Vial IV.PUSH PRN (00:23)
[2018-08-02] MEDS: Morphine Sulfate Inj 2 MG/ML Vial IV.PUSH PRN ×3 (01:55→20:39)
--- NOTE | 2018-08-02 03:18 | CT ---
EXAM DATE: 08/02/2018 1:43 AM EDT AGE/SEX: 47 years / Female INDICATIONS: Shortness of breath, elevated d-dimer. CLINICAL DATA: This is the patient's initial encounter. Patient reports that signs and symptoms have been present for 1 day and indicates a pain score of 0/10. MEDICAL/SURGICAL HISTORY: Diabetes. Hypertension. Rheumatoid arthritis. Muscular dystrophy. No ne. RADIATION DOSE: 5.95 CTDI (mGy) COMPARISON: No prior exams available for comparison. TECHNIQUE: Volumetric scanning was performed using a multi-row detector CT scanner during bolus infu jeyson of 30 ml Omnipaque 350 (iohexol) nonionic water-soluble contrast as a single exam dose. The lei a was post processed with a variety of visualization algorithms including full volume maximum intensi ty projection and sliding thin slab reformation. Using automated exposure control and adjustment of the mA and/or kV according to patient size, radiation dose was kept as low as reasonably achievable t o obtain optimal diagnostic quality images. DICOM format image data is available electronically for review and comparison. FINDINGS: There is mild respiratory motion artifact. Pulmonary Arteries: No filling defect is identified through the segmental and some of the subsegmenta l level pulmonary arteries. Lungs: There is dense consolidation in the left lower lobe with patchy areas of groundglass opacity in the left upper lobe. No pneumothorax is present. Mediastinum: The heart and great vessels demonstrate no acute abnormality. No lymphadenopathy is vis ualized. Pleurae: No pleural effusion or pleural thickening. Axillae: No lymphadenopathy. Musculoskeletal: No acute osseous abnormality is identified. Other: Visualized upper abdominal structures demonstrate no acute abnormality. There is linear calci fication within the right adrenal gland. A hypodense right thyroid nodule is present measuring approx imately 2.5 cm and there is a left thyroid nodule measuring 9 mm. CONCLUSION: 1. No PE is identified. 2. Consolidation within the left lower lobe with a mild groundglass opacity in the left upper lobe. This could represent an infectious process in the appropriate clinical setting. Suggest follow-up to confirm resolution. 3. Bilateral thyroid nodules measuring up to 2.5 cm on the right. Consider thyroid ultrasound for fu rther characterization on an outpatient elective basis. Electronically signed by: Jv Flowers MD 08/02/2018 3:17 AM EDT
[2018-08-02 05:18] LABS: Bilirubin,Urine Negative (Negative); Clarity,Urine Clear (Clear); Color,Urine Straw (Yellw/Straw); Glucose,Urine (UA) 500 or Greater mg/dL (Negative); Leukocyte Esterase,Urine Negative (Negative); Mucus,Urine Few /lpf (Occasional); Nitrite,Urine Negative (Negative); Specific Gravity,Urine 1.026 (1.002-1.035); Squamous Epithelial Cell,Urine 1 /hpf (0-5)
[2018-08-02 05:57] LABS: Baso % (Auto) 0.3 % (0.0-2.0); Hematocrit 46.6 % (35.0-46.0); Hemoglobin 15.2 gm/dL (11.6-15.3); Lymph # (Auto) 0.9 th/mm3 (1.0-4.8); Mean Corpuscular HGB Conc 32.5 % (32.0-36.0); Mean Corpuscular Hemoglobin 31.8 pg (27.0-34.0); Mean Corpuscular Volume 97.7 fL (80.0-100.0); Mean Platelet Volume 9.4 fL (7.0-11.0); Mono # (Auto) 0.8 th/mm3 (0.0-0.9); Mono % (Auto) 5.8 % (0.0-8.0); Neut # (Auto) 12.6 th/mm3 (1.8-7.7); Neut % (Auto) 87.9 % (16.0-70.0); Platelet Count 166 th/mm3 (150-450); Red Blood Count 4.77 mil/mm3 (4.00-5.30); Red Cell Distribution Width 14.4 % (11.6-17.2); White Blood Count 14.4 th/mm3 (4.0-11.0)
[2018-08-02 06:25] LABS: Alanine Aminotransferase 29 U/L (10-53); Albumin 3.7 g/dL (3.4-5.0); Alkaline Phosphatase 90 U/L (45-117); Anion Gap 21 meq/L (5-15); Aspartate Aminotransferase 24 U/L (15-37); Blood Urea Nitrogen 9 mg/dL (7-18); Calcium 8.2 mg/dL (8.5-10.1); Carbon Dioxide 12.6 meq/L (21.0-32.0); Chloride 114 meq/L (98-107); Creatine Kinase 626 U/L (26-192); Glomerular Filtration Rate Greater Than 89 mL/min (>89); Glucose,Random 267 mg/dL (74-106); Potassium 3.8 meq/L (3.5-5.1); Sodium 148 meq/L (136-145); Total Protein 7.6 g/dL (6.4-8.2)
[2018-08-02 06:48] LABS: CKMB Percent 0.6 % (0.0-4.0)
--- NOTE | 2018-08-02 07:35 | P.PNOP ---
Subjective Interval history: Fall from bed at detention. Mother states that she does ambulate. 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 She was complaining of right hip pain. CT confirms right intertrochanteric femur fracture. Physical Exam Vital signs: Vital Signs 08/01/18 18:46 08/01/18 19:46 08/01/18 22:59 Temperature Pulse Rate 131 H Respiratory Rate 25 H Blood Pressure 193/95 H Pulse Oximetry 88 L 93 L 91 L 08/02/18 00:35 08/02/18 01:50 08/02/18 01:58 Temperature 97.8 F Pulse Rate 117 H 117 H Respiratory Rate 20 24 24 Blood Pressure 170/96 H 201/109 H Pulse Oximetry 92 L 08/02/18 03:42 08/02/18 04:37 Temperature 99.1 F Pulse Rate 120 H Respiratory Rate 25 H Blood Pressure 174/93 H Pulse Oximetry 98 100 Intake & Output 08/01/18 08/02/18 08/02/18 18:59 06:59 18:59 Intake Total 2350 / 2350 Output Total 300 / 300 Balance 2049 Weight 40.823 kg 40.91 kg Intake: IV 2350 / 2350 Azithromycin Inj 500 MG In NS 250 / 250 Inj 250 ML @ 250 mls/hr IV.SIG ONCE ONE Rx#:[id number] NS Inj 1,000 ML @ Wide Open IV. 1999 SIG BOLUS ONE Rx#:[id number] Rocephin Inj 1,000 MG In NS Inj 100 / 100 100 ML @ 200 mls/hr IV.SIG ONCE ONE Rx#:[id number] Output: Urine 300 / 300 Other: Weight On Admission 40.91 kg Narrative: Patient is examined in bed. Patient is nonverbal. She does not complain of pain with movement of bilateral upper extremities but does have guarding. She does retract with palpation to right hip. She has intact distal pulses in the right lower extremity. She is lying in position on the left side Results - Labs CBC & Chem 7: 08/02/18 03:42 08/02/18 03:42 Laboratory Results - last 24 hr 08/01/18 08/01/18 08/01/18 19:20 19:20 19:20 WBC 11.9 H RBC 5.33 H Hgb 16.8 H Hct 50.5 H MCV 94.9 MCH 31.6 MCHC 33.3 RDW 13.9 Plt Count 177 MPV 8.6 Prelim Diff (Auto) Slide review pending Neut % (Auto) 87.8 H Lymph % (Auto) 7.9 L [place] % (Auto) 4.2 Eos % (Auto) 0.0 Baso % (Auto) 0.1 Neut # (Auto) 10.5 H Lymph # (Auto) 0.9 L [place] # (Auto) 0.5 Eos # (Auto) 0.0 Baso # (Auto) 0.0 WBC Differential Manual diff final Seg Neuts % (Manual) 70 Band Neuts % (Manual) 16 H Lymphocytes % (Manual) 12 Monocytes % (Manual) 2 Abs Neuts (Manual) 10.2 H Differential Comment . Toxic Vacuolation Present H Platelet Estimate Normal Platelet Morphology Normal D-Dimer Quant (PE/DVT) Sodium 140 Potassium 4.6 Chloride 106 Carbon Dioxide 20.4 L Anion Gap 14 BUN 11 Creatinine 0.66 Estimated GFR Greater than 89 Random Glucose 291 H Lactic Acid Calcium 9.8 Total Bilirubin 1.3 H AST 35 ALT 35 Alkaline Phosphatase 97 Total Creatine Kinase 455 H CK-MB (CK-2) 2.6 CK-MB (CK-2) % 0.6 Troponin I Less than 0.02 L Total Protein 8.5 H Albumin 4.1 Urine Color Urine Clarity Urine pH Ur Specific [place] Urine Protein Urine Glucose (UA) Urine Ketones Urine Occult Blood Urine Nitrate Urine Bilirubin Urine Urobilinogen Ur Leukocyte Esterase Urine RBC Urine WBC Ur Squamous Epith Cells Urine Mucus Micro UA Comment Ur Microscopic Review Urine Culture Comments 08/01/18 08/01/18 08/01/18 19:20 21:57 23:49 WBC RBC Hgb Hct MCV MCH MCHC RDW Plt Count MPV Prelim Diff (Auto) Neut % (Auto) Lymph % (Auto) [place] % (Auto) Eos % (Auto) Baso % (Auto) Neut # (Auto) Lymph # (Auto) [place] # (Auto) Eos # (Auto) Baso # (Auto) WBC Differential Seg Neuts % (Manual) Band Neuts % (Manual) Lymphocytes % (Manual) Monocytes % (Manual) Abs Neuts (Manual) Differential Comment Toxic Vacuolation Platelet Estimate Platelet Morphology D-Dimer Quant (PE/DVT) 14.26 H Sodium Potassium Chloride Carbon Dioxide Anion Gap BUN Creatinine Estimated GFR Random Glucose Lactic Acid 3.3 H 1.7 Calcium Total Bilirubin AST ALT Alkaline Phosphatase Total Creatine Kinase CK-MB (CK-2) CK-MB (CK-2) % Troponin I Total Protein Albumin Urine Color Urine Clarity Urine pH Ur Specific [place] Urine Protein Urine Glucose (UA) Urine Ketones Urine Occult Blood Urine Nitrate Urine Bilirubin Urine Urobilinogen Ur Leukocyte Esterase Urine RBC Urine WBC Ur Squamous Epith Cells Urine Mucus Micro UA Comment Ur Microscopic Review Urine Culture Comments 08/02/18 08/02/18 08/02/18 03:42 03:42 04:30 WBC 14.4 H RBC 4.77 Hgb 15.2 Hct 46.6 H MCV 97.7 MCH 31.8 MCHC 32.5 RDW 14.4 Plt Count 166 MPV 9.4 Prelim Diff (Auto) Slide review pending Neut % (Auto) 87.9 H Lymph % (Auto) 6.0 L [place] % (Auto) 5.8 Eos % (Auto) 0.0 Baso % (Auto) 0.3 Neut # (Auto) 12.6 H Lymph # (Auto) 0.9 L [place] # (Auto) 0.8 Eos # (Auto) 0.0 Baso # (Auto) 0.0 WBC Differential Seg Neuts % (Manual) Band Neuts % (Manual) Lymphocytes % (Manual) Monocytes % (Manual) Abs Neuts (Manual) Differential Comment . Toxic Vacuolation Platelet Estimate Platelet Morphology D-Dimer Quant (PE/DVT) Sodium 148 H Potassium 3.8 D Chloride 114 H D Carbon Dioxide 12.6 L Anion Gap 21 H BUN 9 Creatinine 0.62 Estimated GFR Greater than 89 Random Glucose 267 H Lactic Acid Calcium 8.2 L D Total Bilirubin 0.8 AST 24 ALT 29 Alkaline Phosphatase 90 Total Creatine Kinase 626 H CK-MB (CK-2) 4.0 H CK-MB (CK-2) % 0.6 Troponin I Total Protein 7.6 D Albumin 3.7 Urine Color Straw Urine Clarity Clear Urine pH 5.0 Ur Specific [place] 1.026 Urine Protein Negative Urine Glucose (UA) 500 or greater Urine Ketones 80 or greater H Urine Occult Blood Small H Urine Nitrate Negative Urine Bilirubin Negative Urine Urobilinogen Less than 2 Ur Leukocyte Esterase Negative Urine RBC 1 Urine WBC 2 Ur Squamous Epith Cells 1 Urine Mucus Few H Micro UA Comment Culture not ind Ur Microscopic Review Not Reportable Urine Culture Comments Culture not ind Microbiology 08/02/18 04:30 Urine - Clean Catch Urine Streptococcus pneumoniae Antigen ( M - Final POS S. pneumoniae antigen 08/02/18 04:30 Urine - Clean Catch Urine Legionella Antigen - Final Presumptive negative for Legionella pneumophila serogroup 1 antigen in urine, suggesting no recent or recurrent infection. Infection due to Legionella cannot be ruled out since other serogroups and species may cause disease, antigen may not be present in urine in early infection, and the level of antigen present in the urine may be below the detection limit of the test. - Imaging Impressions Chest X-Ray 08/01/18 18:48 CONCLUSION: Patchy infiltrates left lower lobe. Treatment and follow-up to resolution. Hip CT 08/01/18 18:48 CONCLUSION: 1. Right intratrochanteric femoral neck fracture. 2. Several sclerotic areas seen in the pelvic bones and proximal right femur. These are nonspecific. They could represent benign bone islands versus other causes for sclerotic lesions including metastatic lesions. Chest CTA 08/02/18 00:00 CONCLUSION: 1. No PE is identified. 2. Consolidation within the left lower lobe with a mild groundglass opacity in the left upper lobe. This could represent an infectious process in the appropriate clinical setting. Suggest follow-up to confirm resolution. 3. Bilateral thyroid nodules measuring up to 2.5 cm on the right. Consider thyroid ultrasound for further characterization on an outpatient elective basis. Assessment and Plan - Assessment and Plan Right intertrochanteric femur fracture Due to the fracture and her ability to ambulate surgery is necessary for fixation of the right femur. We will plan on surgery today for intramedullary leslie fixation of the right femur. Fatmata's mother is contacted and surgery is explained to her. She understands the need for the fixation and is in agreement. She discusses consents with the nurses and phone consent is achieved. We will keep her n.p.o. and plan for surgery this morning. Risks and benefits of surgery are discussed which include bleeding, infection, painful hardware, damage to nerves arteries of blood vessels, and risks with anesthesia which include blood clots, pulmonary embolisms and even .
[2018-08-02] MEDS ORDERED: Metoprolol Tartrate 25 MG Tablet PO ONE (08:00)
[2018-08-02] MEDS ORDERED: Sodium Chlor 0.9% Inj 500 ML IV.CONT ONE (08:00)
[2018-08-02] MEDS ORDERED: Chlorhexidine Gluconate 2% 1 Pack (2 Cloths) TOPICAL ONE (08:00)
[2018-08-02] MEDS ORDERED: Insulin NovoLIN Regular Correctional Sugar Inj ONE (08:10)
--- NOTE | 2018-08-02 09:10 | P.CONOP ---
[facility] Orthopedics Consult Note - [facility] Consult date: 08/02/18 Chief complaint: Sepsis, LLL Pna, Right Intertroch Femur Fx Narrative: Izabela is a 47-year-old female that has a history of anoxic encephalopathy secondary to drug use. She is currently residing at [facility]. She has diabetes, epilepsy, depression, and is nonverbal. She presented to the emergency room after having a fall at rehab. No other history is available. She reportedly does ambulate short distances. She also uses a wheelchair. X- rays in the emergency room revealed a displaced right hip intertrochanteric fracture. She is currently on the cardiac floor. She is unable to give any other history. Review of Systems Review of systems, past medical history, family history, and social history are unobtainable from patient. She is nonverbal. Her medical chart was reviewed. [facility] - History History Provided By: Medical Record - Medical / Surgical Hx Neg / Unobtainable Surgical History: Unable to Obtain - Medical History Medical History: Medical History (Last Reviewed 08/02/18 @ 09:06 by Jeancarlos Molina MD) Celiac disease Diabetes Epilepsy Generalized anxiety disorder Hypertensive heart disease Major depression Muscular dystrophy Polymyositis Protein malnutrition Rheumatoid arteritis Surgical history unknown - Surgical History Surgical History: Surgical History (Last Reviewed 08/02/18 @ 09:06 by Jeancarlos Molina MD) Surgical history unknown - Family History Family History: Family History (Last Reviewed 08/02/18 @ 09:06 by Jeancarlos Molina MD) Other Family history unknown - Social History I have reviewed the patient's Social History: Yes - Tobacco History Second Hand Smoke Exposure: No Smoking Status: Cognitive impairment - Alcohol History How Often Do You Have a Drink Containing Alcohol: Unable to Obtain - Substance Use History Substance History: Unable to Obtain - Travel History Recent Travel in the [place] Within the Last 8 Weeks: No Recent Travel Out of the Country Within the Last 8 Weeks: No - Immunization History Tetanus Immunization: >5 Years Medications and Allergies Active Medications: Active Medications Acetaminophen (Tylenol) 650 mg PO Q4H PRN PRN Reason: Temp > 100.4 Amantadine HCl (Symmetrel Liq) 200 mg G-TUBE BID JEN Carbidopa/Levodopa (Sinemet 25/250 Mg) 1 tab G-TUBE BID JEN Dextrose (D50w Vial) 50 ml IV.PUSH UNSCH PRN PRN Reason: PER HYPOGLYCEMIA PROTOCOL Glucagon (Glucagon Inj) 1 mg OTHER PRN PRN PRN Reason: for Hypoglycemia Protocol Azithromycin 250 mg/ Sodium (Chloride) 250 mls @ 250 mls/hr IV.SIG Q24H JEN Ceftriaxone Sodium 1,000 mg/ (Sodium Chloride) 100 mls @ 200 mls/hr IV.SIG Q24H JEN Sodium Chloride (Ns Inj) 1,000 mls @ 100 mls/hr IV.CONT .Q10H JEN Last Admin: 08/02/18 00:09 Dose: 100 mls/hr Lactated Ringer's (Lr 1000 Ml Inj) 1,000 mls @ 30 mls/hr IV.CONT .Q24H ONE Stop: 08/03/18 07:59 Last Admin: 08/02/18 07:45 Dose: 30 mls/hr Sodium Chloride (Ns Inj) 500 mls @ 30 mls/hr IV.CONT .[id number] ONE Stop: 08/03/18 00:39 Insulin Aspart (Novolog Insulin Correctional Sugar Inj) 0 unit SQ ACHS JEN; Protocol Ipratropium [place] (Atrovent Neb) 0.5 mg NEB Q6HR NEB JEN Last Admin: 08/02/18 03:43 Dose: Not Given Lorazepam (Ativan) 1 mg G-TUBE DAILY JEN Mirtazapine (Remeron) 30 mg G-TUBE HS JEN Morphine Sulfate (Morphine Inj) 2 mg IV.PUSH Q3H PRN PRN Reason: pain 1 to 10 Last Admin: 08/02/18 01:55 Dose: 2 mg Ondansetron HCl (Zofran Inj) 4 mg IV.PUSH Q6H PRN PRN Reason: NAUSEA OR VOMITING Prednisone (Deltasone) 5 mg G-TUBE DAILY JEN Sodium Chloride (Ns Flush) 2 ml IV.FLUSH BID JEN Sodium Chloride (Ns Flush) 2 ml IV.FLUSH PRN PRN PRN Reason: FLUSH AFTER USING IV ACCESS Allergies Allergy/AdvReac Type Severity Reaction Status Date / Time barley Allergy Severe celiac Verified 08/02/18 01:54 disease gluten Allergy Severe CELIAC Verified 08/02/18 01:54 DISEASE oats Allergy Severe CELIAC Verified 08/02/18 01:54 DISEASE wheat Allergy Severe CELIAC Verified 08/02/18 01:54 DISEASE Home Medications Medication Instructions Recorded Confirmed Type acetaminophen [Tylenol] 650 mg FEEDING TUBE Q6H PRN 08/01/18 08/01/18 History acetaminophen [Tylenol] 650 mg FEEDING TUBE Q6H PRN 08/01/18 08/01/18 History amantadine HCl 200 mg FEEDING TUBE BID 08/01/18 08/01/18 History carbidopa-levodopa [Sinemet] 1 tab FEEDING TUBE BID 08/01/18 08/01/18 History cholecalciferol (vitamin D3) 1,000 unit FEEDING TUBE BID 08/01/18 08/01/18 History lorazepam [Ativan] 0.5 mg FEEDING TUBE DAILY 08/01/18 08/01/18 History lorazepam [Ativan] 1 mg FEEDING TUBE DAILY 08/01/18 08/01/18 History mirtazapine [Remeron] 30 mg FEEDING TUBE HS 08/01/18 08/01/18 History oxycodone-acetaminophen [Percocet] 1 tab FEEDING TUBE Q6H PRN 08/01/18 08/01/18 History prednisone 5 mg FEEDING TUBE DAILY 08/01/18 08/01/18 History vitamin B complex 1 tab FEEDING TUBE DAILY 08/01/18 08/01/18 History Exam Vital signs: Vital Signs 08/01/18 18:46 08/01/18 19:46 08/01/18 22:59 Temperature Pulse Rate 131 H Respiratory Rate 25 H Blood Pressure 193/95 H Pulse Oximetry 88 L 93 L 91 L 08/02/18 00:35 08/02/18 01:50 08/02/18 01:58 Temperature 97.8 F Pulse Rate 117 H 117 H Respiratory Rate 20 24 24 Blood Pressure 170/96 H 201/109 H Pulse Oximetry 92 L 08/02/18 03:42 08/02/18 04:37 Temperature 99.1 F Pulse Rate 120 H Respiratory Rate 25 H Blood Pressure 174/93 H Pulse Oximetry 98 100 Intake & Output 08/01/18 08/02/18 08/02/18 18:59 06:59 18:59 Intake Total 2350 / 2350 Output Total 300 / 300 Balance 2049 Weight 40.823 kg 40.91 kg Intake: IV 2350 / 2350 Azithromycin Inj 500 MG In NS 250 / 250 Inj 250 ML @ 250 mls/hr IV.SIG ONCE ONE Rx#:[id number] NS Inj 1,000 ML @ Wide Open IV. 1999 SIG BOLUS ONE Rx#:[id number] Rocephin Inj 1,000 MG In NS Inj 100 / 100 100 ML @ 200 mls/hr IV.SIG ONCE ONE Rx#:[id number] Output: Urine 300 / 300 Other: Weight On Admission 40.91 kg Narrative: Patient is a 47-year-old female. She appears thin. She is awake but nonverbal. General: No acute distress. Appears thin Head: Normocephalic, atraumatic pupils are equal Neck: Soft, nontender, trachea midline Abdomen: Soft, nondistended Examination of right arm reveals no pain or deformity with shoulder, elbow, or wrist motion. Skin is intact. Radial pulse is palpable. Normal capillary refill in fingers. Sensation is intact in right hand. Surveillance Systems Engineer strength is +5. No lymphadenopathy noted. Examination of left arm reveals no pain or deformity with shoulder, elbow, or wrist motion. Skin is intact. Radial pulse is palpable. Normal capillary refill in fingers. Sensation is intact in left hand. No lymphadenopathy noted. Examination of left lower extremity reveals no pain or deformity with hip, knee , or ankle motion. Skin is intact. Sensation is intact in left foot. Dorsalis pedis pulse is palpable. Normal capillary refill and feet. Thigh and calf compartments are soft. No lymphadenopathy noted. Examination of right lower extremity reveals pain with any hip motion. Her right leg is shortened and rotated.. Skin is intact. Sensation is intact in right foot. Dorsalis pedis pulse is palpable. Normal capillary refill and feet. Thigh and calf compartments are soft. No lymphadenopathy noted. Results - Labs Result Diagrams: 08/02/18 03:42 08/02/18 03:42 Labs: Laboratory Results - last 24 hr 08/01/18 08/01/18 08/01/18 19:20 19:20 19:20 WBC 11.9 H RBC 5.33 H Hgb 16.8 H Hct 50.5 H MCV 94.9 MCH 31.6 MCHC 33.3 RDW 13.9 Plt Count 177 MPV 8.6 Prelim Diff (Auto) Slide review pending Neut % (Auto) 87.8 H Lymph % (Auto) 7.9 L [place] % (Auto) 4.2 Eos % (Auto) 0.0 Baso % (Auto) 0.1 Neut # (Auto) 10.5 H Lymph # (Auto) 0.9 L [place] # (Auto) 0.5 Eos # (Auto) 0.0 Baso # (Auto) 0.0 WBC Differential Manual diff final Seg Neuts % (Manual) 70 Band Neuts % (Manual) 16 H Lymphocytes % (Manual) 12 Monocytes % (Manual) 2 Abs Neuts (Manual) 10.2 H Differential Comment . Toxic Vacuolation Present H Platelet Estimate Normal Platelet Morphology Normal D-Dimer Quant (PE/DVT) Sodium 140 Potassium 4.6 Chloride 106 Carbon Dioxide 20.4 L Anion Gap 14 BUN 11 Creatinine 0.66 Estimated GFR Greater than 89 POC Glucose Random Glucose 291 H Lactic Acid Calcium 9.8 Total Bilirubin 1.3 H AST 35 ALT 35 Alkaline Phosphatase 97 Total Creatine Kinase 455 H CK-MB (CK-2) 2.6 CK-MB (CK-2) % 0.6 Troponin I Less than 0.02 L Total Protein 8.5 H Albumin 4.1 Urine Color Urine Clarity Urine pH Ur Specific [place] Urine Protein Urine Glucose (UA) Urine Ketones Urine Occult Blood Urine Nitrate Urine Bilirubin Urine Urobilinogen Ur Leukocyte Esterase Urine RBC Urine WBC Ur Squamous Epith Cells Urine Mucus Micro UA Comment Ur Microscopic Review Urine Culture Comments 08/01/18 08/01/18 08/01/18 19:20 21:57 23:49 WBC RBC Hgb Hct MCV MCH MCHC RDW Plt Count MPV Prelim Diff (Auto) Neut % (Auto) Lymph % (Auto) [place] % (Auto) Eos % (Auto) Baso % (Auto) Neut # (Auto) Lymph # (Auto) [place] # (Auto) Eos # (Auto) Baso # (Auto) WBC Differential Seg Neuts % (Manual) Band Neuts % (Manual) Lymphocytes % (Manual) Monocytes % (Manual) Abs Neuts (Manual) Differential Comment Toxic Vacuolation Platelet Estimate Platelet Morphology D-Dimer Quant (PE/DVT) 14.26 H Sodium Potassium Chloride Carbon Dioxide Anion Gap BUN Creatinine Estimated GFR POC Glucose Random Glucose Lactic Acid 3.3 H 1.7 Calcium Total Bilirubin AST ALT Alkaline Phosphatase Total Creatine Kinase CK-MB (CK-2) CK-MB (CK-2) % Troponin I Total Protein Albumin Urine Color Urine Clarity Urine pH Ur Specific [place] Urine Protein Urine Glucose (UA) Urine Ketones Urine Occult Blood Urine Nitrate Urine Bilirubin Urine Urobilinogen Ur Leukocyte Esterase Urine RBC Urine WBC Ur Squamous Epith Cells Urine Mucus Micro UA Comment Ur Microscopic Review Urine Culture Comments 08/02/18 08/02/18 08/02/18 03:42 03:42 04:30 WBC 14.4 H RBC 4.77 Hgb 15.2 Hct 46.6 H MCV 97.7 MCH 31.8 MCHC 32.5 RDW 14.4 Plt Count 166 MPV 9.4 Prelim Diff (Auto) Slide review pending Neut % (Auto) 87.9 H Lymph % (Auto) 6.0 L [place] % (Auto) 5.8 Eos % (Auto) 0.0 Baso % (Auto) 0.3 Neut # (Auto) 12.6 H Lymph # (Auto) 0.9 L [place] # (Auto) 0.8 Eos # (Auto) 0.0 Baso # (Auto) 0.0 WBC Differential Seg Neuts % (Manual) Band Neuts % (Manual) Lymphocytes % (Manual) Monocytes % (Manual) Abs Neuts (Manual) Differential Comment . Toxic Vacuolation Platelet Estimate Platelet Morphology D-Dimer Quant (PE/DVT) Sodium 148 H Potassium 3.8 D Chloride 114 H D Carbon Dioxide 12.6 L Anion Gap 21 H BUN 9 Creatinine 0.62 Estimated GFR Greater than 89 POC Glucose Random Glucose 267 H Lactic Acid Calcium 8.2 L D Total Bilirubin 0.8 AST 24 ALT 29 Alkaline Phosphatase 90 Total Creatine Kinase 626 H CK-MB (CK-2) 4.0 H CK-MB (CK-2) % 0.6 Troponin I Total Protein 7.6 D Albumin 3.7 Urine Color Straw Urine Clarity Clear Urine pH 5.0 Ur Specific [place] 1.026 Urine Protein Negative Urine Glucose (UA) 500 or greater Urine Ketones 80 or greater H Urine Occult Blood Small H Urine Nitrate Negative Urine Bilirubin Negative Urine Urobilinogen Less than 2 Ur Leukocyte Esterase Negative Urine RBC 1 Urine WBC 2 Ur Squamous Epith Cells 1 Urine Mucus Few H Micro UA Comment Culture not ind Ur Microscopic Review Not Reportable Urine Culture Comments Culture not ind 08/02/18 08:04 WBC RBC Hgb Hct MCV MCH MCHC RDW Plt Count MPV Prelim Diff (Auto) Neut % (Auto) Lymph % (Auto) [place] % (Auto) Eos % (Auto) Baso % (Auto) Neut # (Auto) Lymph # (Auto) [place] # (Auto) Eos # (Auto) Baso # (Auto) WBC Differential Seg Neuts % (Manual) Band Neuts % (Manual) Lymphocytes % (Manual) Monocytes % (Manual) Abs Neuts (Manual) Differential Comment Toxic Vacuolation Platelet Estimate Platelet Morphology D-Dimer Quant (PE/DVT) Sodium Potassium Chloride Carbon Dioxide Anion Gap BUN Creatinine Estimated GFR POC Glucose 248 H Random Glucose Lactic Acid Calcium Total Bilirubin AST ALT Alkaline Phosphatase Total Creatine Kinase CK-MB (CK-2) CK-MB (CK-2) % Troponin I Total Protein Albumin Urine Color Urine Clarity Urine pH Ur Specific [place] Urine Protein Urine Glucose (UA) Urine Ketones Urine Occult Blood Urine Nitrate Urine Bilirubin Urine Urobilinogen Ur Leukocyte Esterase Urine RBC Urine WBC Ur Squamous Epith Cells Urine Mucus Micro UA Comment Ur Microscopic Review Urine Culture Comments - Diagnostic results Imaging: Impressions Chest X-Ray 08/01/18 18:48 CONCLUSION: Patchy infiltrates left lower lobe. Treatment and follow-up to resolution. Hip CT 08/01/18 18:48 CONCLUSION: 1. Right intratrochanteric femoral neck fracture. 2. Several sclerotic areas seen in the pelvic bones and proximal right femur. These are nonspecific. They could represent benign bone islands versus other causes for sclerotic lesions including metastatic lesions. Chest CTA 08/02/18 00:00 CONCLUSION: 1. No PE is identified. 2. Consolidation within the left lower lobe with a mild groundglass opacity in the left upper lobe. This could represent an infectious process in the appropriate clinical setting. Suggest follow-up to confirm resolution. 3. Bilateral thyroid nodules measuring up to 2.5 cm on the right. Consider thyroid ultrasound for further characterization on an outpatient elective basis. Hip CT: report reviewed, image reviewed Assessment and Plan - Assessment and Plan Izabela has a displaced right hip intertrochanteric fracture. At this point I would recommend surgical intervention for reduction and intramedullary nail fixation. Patient is unable to give consent for herself. We will attempt to contact her family to obtain consent. The risk of surgery include bleeding, infection, injuries to arteries, nerves, or blood vessels, infection, wound complications, nonunion, malunion, painful hardware, and need for further surgery. She also has risk of medical complications including blood clots, pneumonia, stroke, heart attack, and . Informed consent will be obtained from her family. N.p.o.--plan on surgery this morning Calcium and vitamin D supplementation Physical therapy consult Follow-up with Dr. Molina in 2 weeks SCDs, Diana Snow A mid-level provider in my office (nurse practitioner or physician product safety technical assistant) may see this patient on follow-up visits and continue to implement the objectives of this plan including: Starting or adjusting medications, injections , cast application, orthotics, brace application, physical therapy, radiological studies (including x-ray, MRI, CT, ultrasound, bone scan), vascular studies, neurologic studies, specialist consultation, and proceeding with surgical management, as appropriate.
[2018-08-02] MEDS ORDERED: Bupivacaine/Epinephrine 0.5% Inj 50 ML Vial ONE (09:29)
[2018-08-02] MEDS ORDERED: Post-op Orders (for Pharmacy) OTHER STA (09:47)
--- NOTE | 2018-08-02 09:52 | P.OP ---
- Preoperative Diagnosis (1) Closed intertrochanteric fracture of right hip Date of procedure: 08/02/18 Anesthesia: GETA Surgeon: Jeancarlos Molina MD Canning Machine Operator: DONAL Black PA-C The surgical procedure was assisted by my physician physicians assistant. My P.A. presence was necessary throughout this case for the manipulation and positioning of the surgical extremity. My P.A. was assisting me throughout the duration of this procedure. The skill set of a physician physicians assistant was medically necessary to complete this procedure. During the surgical case the surgical training specialist was working at the back table and the physician physicians assistant was directly assisting me. Operation and Findings: Implants used: Donny 11 mm x 320 mm troch nail Plan of activity: 50% weightbearing right leg Patient was seen and evaluated preoperatively. The patient has significant hip pain from proximal femur fracture. The risk and benefits of surgery were discussed in depth with the patient to include bleeding, infection, nonunion, malunion, need for hip replacement, painful hardware, as well as medical competitions including blood clots, stroke, heart attack, and . Informed consent was obtained. Operative site was marked. Patient was brought to the operating room and placed on fracture table. IV sedation was administered by anesthesiologist. Timeout procedure was performed. Hip and leg were prepped with alcohol followed by DuraPrep and draped in the usual sterile fashion. IV antibiotics were given prior to incision. Procedure began with reduction of fracture. Traction was applied. The leg was manipulated to achieve reduction. Excellent reduction was achieved. Fluoroscopy was used to confirm reduction. A three inch incision was made proximal to the trochanter. Subcutaneous tissue was dissected bluntly. Guidepin was placed at the tip of the trochanter and advanced into the femoral canal. Fluoroscopy confirmed appropriate guidepin placement. A opening reamer was placed over the guidepin. A long ball tipped guide pin was now placed down the femoral canal into the center of the distal femur. The nail length was now measured. Fluoroscopy confirmed appropriate guidepin placement. Flexible reamers were now passed over the guidepin to ream the intramedullary canal. The nail was attached to the insertion handle. Nail was now placed over the guidepin into the femoral canal. Fluoroscopy confirmed appropriate nail placement. A second incision was made over the lateral thigh. Cannulas were placed through the insertion handle down to the femur. Guidepin was now placed through the femoral nail into the center of the femoral head. Fluoroscopy confirmed appropriate guidepin placement. Screw length was measured. Cannulated drill was placed over the guidepin. Appropriate length lag screw was now placed. Traction was released and compression was applied. The set screw was now tightened in dynamic mode. Next, using perfect bishop paiute technique a distal interlocking screw was placed. Screw holes were predrilled and screw lengths were measured. Final fluoroscopy revealed well aligned fracture with well-placed hardware. Incision was closed with 3-0 Vicryl and letitia. Sterile dressings were applied. Patient was awakened and transferred to recovery room.
[2018-08-02] MEDS ORDERED: fentaNYL Citrate Inj 100 MCG/2 ML Ampul ONE (10:18)
[2018-08-02] MEDS ORDERED: *Meperidine Inj 25 MG/ML Vial PERIprocedural Use ONLY ONE (10:20)
[2018-08-02] MEDS: LORazepam 1 MG Tablet G-TUBE SCH (10:30)
[2018-08-02] MEDS: predniSONE 5 MG Tablet G-TUBE SCH (10:30)
[2018-08-02] MEDS: Insulin NovoLOG Aspart Correctional Sugar Inj SQ SCH (10:30)
[2018-08-02] MEDS: Sodium Chloride 0.9% 2 ML Flush BID IV.FLUSH SCH ×2 (10:31→20:22)
[2018-08-02] MEDS: Amantadine Liq 100 MG/10 ML UDC G-TUBE SCH ×2 (10:32→20:28)
[2018-08-02] MEDS: Enoxaparin Inj 30 MG/0.3 ML Syringe SQ SCH (10:32)
[2018-08-02] MEDS ORDERED: *morphine SULFATE 4 MG/ML PERIprocedure ONLY ONE (10:50)
--- NOTE | 2018-08-02 11:09 | XR ---
EXAM DATE: 08/02/2018 12:00 AM EDT AGE/SEX: 47 years / Female INDICATIONS: ORIF right hip fracture. CLINICAL DATA: This is the patient's subsequent encounter. Patient reports that signs and symptoms h ave been present for 2 days and indicates a pain score of Nonresponsive. MEDICAL/SURGICAL HISTORY: Non-responsive. Non-responsive. COMPARISON: No prior exams available for comparison. FINDINGS: 4 magnified C-arm spot views are centered over the femur and labeled right. An intramedullary leslie wit h femoral neck screw noted. Femoral neck screw is contained within the cortical confines of the femor al head. Intramedullary leslie in good position. Normal alignment observed. CONCLUSION: Limited images as detailed above. Electronically signed by: Robin Dumont MD 08/02/2018 11:07 AM EDT
[2018-08-02 11:31] LABS: Lymphocytes 6 % (9-44); Metamyelocytes 1 % (0-1); Monocytes 2 % (0-8); Platelet Estimate Normal (Normal); Platelet Morphology Normal (Normal)
--- NOTE | 2018-08-02 12:23 | OTSOAPIP ---
TIME SESSION COMPLETED: 900 TREATMENT TIME: 0 MINS. CHART REVIEWED. PATIENT OFF THE FLOOR FOR ORTHOPEDIC SURGERY. WILL REATTEMPT NEXT TREATMENT DAY. Therapist: Lauren Louis Signature on file
[2018-08-02] MEDS: Calcium/Vitamin D 250/125 MG Tablet PO SCH (14:51)
--- NOTE | 2018-08-02 15:44 | P.PNIM ---
Subjective Interval history: Patient underwent ORIF of the right hip. She is seen postoperatively. Discussed with RN. She appears to be uncomfortable. Physical Exam Vital signs: Vital Signs 08/01/18 18:46 08/01/18 19:46 08/01/18 22:59 Temperature Pulse Rate 131 H Respiratory Rate 25 H Blood Pressure 193/95 H Pulse Oximetry 88 L 93 L 91 L 08/02/18 00:35 08/02/18 01:50 08/02/18 01:58 Temperature 97.8 F Pulse Rate 117 H 117 H Respiratory Rate 20 24 24 Blood Pressure 170/96 H 201/109 H Pulse Oximetry 92 L 08/02/18 03:42 08/02/18 04:37 08/02/18 10:09 Temperature 99.1 F 98.6 F Pulse Rate 120 H 106 H Respiratory Rate 25 H 21 Blood Pressure 174/93 H 133/97 H Pulse Oximetry 98 100 99 08/02/18 10:10 08/02/18 10:15 08/02/18 10:25 Temperature Pulse Rate 109 H 112 H Respiratory Rate 18 24 Blood Pressure 133/97 H Pulse Oximetry 96 96 94 L 08/02/18 10:30 08/02/18 10:31 08/02/18 10:45 Temperature Pulse Rate 110 H 110 H 109 H Respiratory Rate 23 26 H 25 H Blood Pressure 158/92 H 150/71 H Pulse Oximetry 94 L 94 L 94 L 08/02/18 11:00 08/02/18 11:15 08/02/18 11:50 Temperature 98.0 F Pulse Rate 109 H 110 H 112 H Respiratory Rate 39 H 55 H Blood Pressure 145/67 H 152/71 H 164/82 H Pulse Oximetry 94 L 95 96 08/02/18 12:00 Temperature 98.7 F Pulse Rate 113 H Respiratory Rate 20 Blood Pressure 170/89 H Pulse Oximetry 96 Intake & Output 08/01/18 08/02/18 08/02/18 18:59 06:59 18:59 Intake Total 2350 / 2350 600 / 600 Output Total 300 / 300 445 / 445 Balance 2049 155 / 155 Weight 40.823 kg 40.91 kg Intake: IV 2350 / 2350 Azithromycin Inj 500 MG In NS 250 / 250 Inj 250 ML @ 250 mls/hr IV.SIG ONCE ONE Rx#:[id number] NS Inj 1,000 ML @ Wide Open IV. 1999 SIG BOLUS ONE Rx#:[id number] Rocephin Inj 1,000 MG In NS Inj 100 / 100 100 ML @ 200 mls/hr IV.SIG ONCE ONE Rx#:[id number] Anesthesia Amount 600 / 600 Output: Urine 300 / 300 Estimated Blood Loss 20 / 20 Urine Amount (Catheter) 425 / 425 Indwelling Urethral Catheter 425 / 425 Other: Weight On Admission 40.91 kg Narrative: GENERAL: This is a mal-nourished, non verbal patient. CARDIOVASCULAR: tachy rate and rhythm without murmurs, gallops, or rubs. RESPIRATORY: Clear to auscultation. Breath sounds equal bilaterally. No wheezes , rales, or rhonchi. GASTROINTESTINAL: Abdomen soft, non-tender, nondistended. Normal active bowel sounds, Peg tube in place MUSCULOSKELETAL: Contracted. Right hip postop dressing appear clean and intact. NEURO: Alert, non verbal, does not follow commands. - Urinary Catheter Management Indwelling Urethral Catheter Cath placed during this visit: yes Reason for continuing: Hourly intake/output Insertion date: 08/02/18 Insertion time: 09:13 Results - Labs CBC & Chem 7: 08/02/18 03:42 08/02/18 03:42 Laboratory Results - last 24 hr 08/01/18 08/01/18 08/01/18 19:20 19:20 19:20 WBC 11.9 H RBC 5.33 H Hgb 16.8 H Hct 50.5 H MCV 94.9 MCH 31.6 MCHC 33.3 RDW 13.9 Plt Count 177 MPV 8.6 Prelim Diff (Auto) Slide review pending Neut % (Auto) 87.8 H Lymph % (Auto) 7.9 L Villalba % (Auto) 4.2 Eos % (Auto) 0.0 Baso % (Auto) 0.1 Neut # (Auto) 10.5 H Lymph # (Auto) 0.9 L [place] # (Auto) 0.5 Eos # (Auto) 0.0 Baso # (Auto) 0.0 WBC Differential Manual diff final Seg Neuts % (Manual) 70 Band Neuts % (Manual) 16 H Lymphocytes % (Manual) 12 Monocytes % (Manual) 2 Metamyelocytes % (Man) Abs Neuts (Manual) 10.2 H Differential Comment . Toxic Vacuolation Present H Platelet Estimate Normal Platelet Morphology Normal D-Dimer Quant (PE/DVT) Sodium 140 Potassium 4.6 Chloride 106 Carbon Dioxide 20.4 L Anion Gap 14 BUN 11 Creatinine 0.66 Estimated GFR Greater than 89 POC Glucose Random Glucose 291 H Lactic Acid Calcium 9.8 Total Bilirubin 1.3 H AST 35 ALT 35 Alkaline Phosphatase 97 Total Creatine Kinase 455 H CK-MB (CK-2) 2.6 CK-MB (CK-2) % 0.6 Troponin I Less than 0.02 L Total Protein 8.5 H Albumin 4.1 Urine Color Urine Clarity Urine pH Ur Specific [place] Urine Protein Urine Glucose (UA) Urine Ketones Urine Occult Blood Urine Nitrate Urine Bilirubin Urine Urobilinogen Ur Leukocyte Esterase Urine RBC Urine WBC Ur Squamous Epith Cells Urine Mucus Micro UA Comment Ur Microscopic Review Urine Culture Comments 08/01/18 08/01/18 08/01/18 19:20 21:57 23:49 WBC RBC Hgb Hct MCV MCH MCHC RDW Plt Count MPV Prelim Diff (Auto) Neut % (Auto) Lymph % (Auto) Villalba % (Auto) Eos % (Auto) Baso % (Auto) Neut # (Auto) Lymph # (Auto) Villalba # (Auto) Eos # (Auto) Baso # (Auto) WBC Differential Seg Neuts % (Manual) Band Neuts % (Manual) Lymphocytes % (Manual) Monocytes % (Manual) Metamyelocytes % (Man) Abs Neuts (Manual) Differential Comment Toxic Vacuolation Platelet Estimate Platelet Morphology D-Dimer Quant (PE/DVT) 14.26 H Sodium Potassium Chloride Carbon Dioxide Anion Gap BUN Creatinine Estimated GFR POC Glucose Random Glucose Lactic Acid 3.3 H 1.7 Calcium Total Bilirubin AST ALT Alkaline Phosphatase Total Creatine Kinase CK-MB (CK-2) CK-MB (CK-2) % Troponin I Total Protein Albumin Urine Color Urine Clarity Urine pH Ur Specific [place] Urine Protein Urine Glucose (UA) Urine Ketones Urine Occult Blood Urine Nitrate Urine Bilirubin Urine Urobilinogen Ur Leukocyte Esterase Urine RBC Urine WBC Ur Squamous Epith Cells Urine Mucus Micro UA Comment Ur Microscopic Review Urine Culture Comments 08/02/18 08/02/18 08/02/18 03:42 03:42 04:30 WBC 14.4 H RBC 4.77 Hgb 15.2 Hct 46.6 H MCV 97.7 MCH 31.8 MCHC 32.5 RDW 14.4 Plt Count 166 MPV 9.4 Prelim Diff (Auto) Slide review pending Neut % (Auto) 87.9 H Lymph % (Auto) 6.0 L [place] % (Auto) 5.8 Eos % (Auto) 0.0 Baso % (Auto) 0.3 Neut # (Auto) 12.6 H Lymph # (Auto) 0.9 L [place] # (Auto) 0.8 Eos # (Auto) 0.0 Baso # (Auto) 0.0 WBC Differential Manual diff final Seg Neuts % (Manual) 67 Band Neuts % (Manual) 24 H Lymphocytes % (Manual) 6 L Monocytes % (Manual) 2 Metamyelocytes % (Man) 1 Abs Neuts (Manual) 13.2 H Differential Comment . Toxic Vacuolation Platelet Estimate Normal Platelet Morphology Normal D-Dimer Quant (PE/DVT) Sodium 148 H Potassium 3.8 D Chloride 114 H D Carbon Dioxide 12.6 L Anion Gap 21 H BUN 9 Creatinine 0.62 Estimated GFR Greater than 89 POC Glucose Random Glucose 267 H Lactic Acid Calcium 8.2 L D Total Bilirubin 0.8 AST 24 ALT 29 Alkaline Phosphatase 90 Total Creatine Kinase 626 H CK-MB (CK-2) 4.0 H CK-MB (CK-2) % 0.6 Troponin I Total Protein 7.6 D Albumin 3.7 Urine Color Straw Urine Clarity Clear Urine pH 5.0 Ur Specific [place] 1.026 Urine Protein Negative Urine Glucose (UA) 500 or greater Urine Ketones 80 or greater H Urine Occult Blood Small H Urine Nitrate Negative Urine Bilirubin Negative Urine Urobilinogen Less than 2 Ur Leukocyte Esterase Negative Urine RBC 1 Urine WBC 2 Ur Squamous Epith Cells 1 Urine Mucus Few H Micro UA Comment Culture not ind Ur Microscopic Review Not Reportable Urine Culture Comments Culture not ind 08/02/18 08/02/18 08:04 10:39 WBC RBC Hgb Hct MCV MCH MCHC RDW Plt Count MPV Prelim Diff (Auto) Neut % (Auto) Lymph % (Auto) Villalba % (Auto) Eos % (Auto) Baso % (Auto) Neut # (Auto) Lymph # (Auto) Vill[place] # (Auto) Eos # (Auto) Baso # (Auto) WBC Differential Seg Neuts % (Manual) Band Neuts % (Manual) Lymphocytes % (Manual) Monocytes % (Manual) Metamyelocytes % (Man) Abs Neuts (Manual) Differential Comment Toxic Vacuolation Platelet Estimate Platelet Morphology D-Dimer Quant (PE/DVT) Sodium Potassium Chloride Carbon Dioxide Anion Gap BUN Creatinine Estimated GFR POC Glucose 248 H 281 H Random Glucose Lactic Acid Calcium Total Bilirubin AST ALT Alkaline Phosphatase Total Creatine Kinase CK-MB (CK-2) CK-MB (CK-2) % Troponin I Total Protein Albumin Urine Color Urine Clarity Urine pH Ur Specific [place] Urine Protein Urine Glucose (UA) Urine Ketones Urine Occult Blood Urine Nitrate Urine Bilirubin Urine Urobilinogen Ur Leukocyte Esterase Urine RBC Urine WBC Ur Squamous Epith Cells Urine Mucus Micro UA Comment Ur Microscopic Review Urine Culture Comments Microbiology 08/01/18 19:20 Blood - Peripheral Aerobic Blood Culture - Preliminary No growth in 1 day 08/01/18 19:20 Blood - Peripheral Anaerobic Blood Culture - Preliminary No growth in 1 day 08/01/18 19:25 Blood - Peripheral Aerobic Blood Culture - Preliminary No growth in 1 day 08/01/18 19:25 Blood - Peripheral Anaerobic Blood Culture - Preliminary No growth in 1 day 08/02/18 04:30 Urine - Clean Catch Urine Streptococcus pneumoniae Antigen ( M - Final POS S. pneumoniae antigen 08/02/18 04:30 Urine - Clean Catch Urine Legionella Antigen - Final Presumptive negative for Legionella pneumophila serogroup 1 antigen in urine, suggesting no recent or recurrent infection. Infection due to Legionella cannot be ruled out since other serogroups and species may cause disease, antigen may not be present in urine in early infection, and the level of antigen present in the urine may be below the detection limit of the test. - Imaging Impressions Chest X-Ray 08/01/18 18:48 CONCLUSION: Patchy infiltrates left lower lobe. Treatment and follow-up to resolution. Hip CT 08/01/18 18:48 CONCLUSION: 1. Right intratrochanteric femoral neck fracture. 2. Several sclerotic areas seen in the pelvic bones and proximal right femur. These are nonspecific. They could represent benign bone islands versus other causes for sclerotic lesions including metastatic lesions. Chest CTA 08/02/18 00:00 CONCLUSION: 1. No PE is identified. 2. Consolidation within the left lower lobe with a mild groundglass opacity in the left upper lobe. This could represent an infectious process in the appropriate clinical setting. Suggest follow-up to confirm resolution. 3. Bilateral thyroid nodules measuring up to 2.5 cm on the right. Consider thyroid ultrasound for further characterization on an outpatient elective basis. Femur X-Ray 08/02/18 00:00 CONCLUSION: Limited images as detailed above. 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 Severe sepsis secondary to pneumonia Chest x-ray reviewed and shows patchy infiltrates left lower lobe NS bolus x 2, cont IVF Continue IV antibiotics including azithromycin and Rocephin Nebs as needed Pneumococcal antigens positive. CTA negative for PE but confirmed consolidation. Hip fracture, right -Orthopedics following. Status post ORIF with leslie placement. Anoxic encephalopathy, chronic Resume home medication Resume home tube feeding regiment Diabetes, chronic Accu-Cheks with sliding scale insulin Other chronic conditions appear stable: Cont home medication DVT prophylaxis: SCDs Discharge Planning: Consider transitioning to oral antibiotics tomorrow if she remains stable from a respiratory standpoint. Plan to discharge back to SNF when ready. Will need orthopedics clearance.
--- NOTE | 2018-08-02 17:41 | P.DIET ---
Nutritional Evaluation Type of nutrition evaluation: initial Nutrition consult regarding: Tube Feeding Subjective Barriers to Nutrition: Swallowing problem Subjective Comments: ANNIE Chu spoke w/SNF, Yunier Macedo, earlier today and was told pt eats a Regular thin liquid Low Concentrated Sweet Diet and receives a bolus feeding of 1-can Glucerna 1.5 at bedtime daily. Pt is non-verbal. Objective - Diagnosis Sepsis, LLL PNA, Right Intertroch Femur Fracture - Objective [place] body weight: 50 kg % IBW: 82 Body Weight Used for Calculations: Actual (40.8kg) Energy Needs - Lower Range (kCal/kg): 32 Energy Needs - Upper Range (kCal/kg): 37 Lower Limit kCal/kg (kCals): 1,306 Upper Limit kCal/kg (kCals): 1,510 Lower Limit Protein Factor (Grams per Kg): 1.2 Upper Limit Protein Factor (Grams per Kg): 1.5 Lower Protein Needs (Protein): 60 Upper Protein Needs (Protein): 75 Fluid Factor (ml/kg): 32 Estimated Fluid Needs (ml): 1,306 Dietitian Reviewed in Medical Record: Current diet, Curent medications, Intake & Output, Labs, Medical history, Tube feeding Diet Order: TF'ing bolus Glucerna 1.5 1-can at bedtime and 1800ADA [facility] sot diet w/chop Objective Comments: PMH includes: Anoxic Encephalopathy, Celiac Disease, DM-1, Epilepsy, Generalized Anxiety DO, Hypertensive Heart Disease, Major Depression, Muscular dystrophy, Polymyositis, Protein Malnutrition, Rheumatoid Arthritis; PEG tube inplace Random Glucose 267 Meds include: free water flush 300ml in AM and PM w/meds, Oscal w/Vit D, Sinemet , Novolin, Ativan, Remeron, Zofran Assessment Assessment: Pt is at nutritional risk r/t diagnosis and need for TF'ing via PEG tube. Pt is s/p ORIF of Right hip. Diet advanced and pt has not received a meal tray or a bolus feeding at time of this entry. Monitor po intake and assess need for an oral nutritional supplement. Per Nursing pt needs assistance w/feeding and encouragement to have po intake. Glucerna 1.5 1-can bolus at HS will provide 365 kcal and 19.6g protein. Free water flushes per MD as ordered. Labs reviewed -monitor glucose. Dietitian following. Recommendations: 1. Monitor po intake and assess need for an oral nutritional supplement 2. Pt needs assistance w/feeding and encouragement to have po intake 3. Bolus Glucerna 1.5 1-can bolus at HS per MD 4. Free water flushes per MD as ordered 5. Dietitian following Dietitian to Monitor: Lab values, Glucose level, Intake & Output, Diet tolerance , Tube feeding tolerance, Weight change, PO Intake, Medical course
[2018-08-02] MEDS: Mirtazapine 15 MG Tablet G-TUBE SCH (20:22)
[2018-08-02] MEDS: Azithromycin Inj 250 MG in Sodium Chlor 0.9% Inj 250 ML IV.SIG SCH (20:23)
[2018-08-03] MEDS: Morphine Sulfate Inj 2 MG/ML Vial IV.PUSH PRN ×2 (01:05→23:43)
--- NOTE | 2018-08-03 06:45 | P.PNOP ---
Subjective Interval history: POD 1 s/p IMN right hip patient nonverbal. appears in no acute distress Physical Exam Vital signs: Vital Signs 08/02/18 10:09 08/02/18 10:10 08/02/18 10:15 Temperature 98.6 F Pulse Rate 106 H 109 H Respiratory Rate 21 18 Blood Pressure 133/97 H 133/97 H Pulse Oximetry 99 96 96 08/02/18 10:25 08/02/18 10:30 08/02/18 10:31 Temperature Pulse Rate 112 H 110 H 110 H Respiratory Rate 24 23 26 H Blood Pressure 158/92 H Pulse Oximetry 94 L 94 L 94 L 08/02/18 10:45 08/02/18 11:00 08/02/18 11:15 Temperature Pulse Rate 109 H 109 H 110 H Respiratory Rate 25 H 39 H 55 H Blood Pressure 150/71 H 145/67 H 152/71 H Pulse Oximetry 94 L 94 L 95 08/02/18 11:50 08/02/18 12:00 08/02/18 16:00 Temperature 98.0 F 98.7 F 98.9 F Pulse Rate 112 H 113 H 109 H Respiratory Rate 20 20 Blood Pressure 164/82 H 170/89 H 182/86 H Pulse Oximetry 96 96 98 08/02/18 16:18 08/02/18 18:57 08/02/18 20:00 Temperature 98.6 F 98.6 F Pulse Rate 114 H 109 H 109 H Respiratory Rate 16 20 18 Blood Pressure 170/79 H 152/75 H Pulse Oximetry 96 99 08/02/18 22:59 08/03/18 00:00 08/03/18 00:30 Temperature 98.8 F Pulse Rate 106 H Respiratory Rate 18 17 Blood Pressure 171/72 H Pulse Oximetry 99 99 08/03/18 04:00 08/03/18 04:11 Temperature 98.5 F Pulse Rate 115 H 76 Respiratory Rate 18 16 Blood Pressure 192/88 H Pulse Oximetry 100 Intake & Output 08/02/18 08/02/18 08/03/18 06:59 18:59 06:59 Intake Total 2350 / 2350 600 / 600 Output Total 300 / 300 445 / 445 Balance 2049 / 2049 155 / 155 Weight 40.91 kg Intake: IV 2350 / 2350 Azithromycin Inj 500 MG In NS 250 / 250 Inj 250 ML @ 250 mls/hr IV.SIG ONCE ONE Rx#:[id number] NS Inj 1,000 ML @ Wide Open IV. 1999 SIG BOLUS ONE Rx#:[id number] Rocephin Inj 1,000 MG In NS Inj 100 / 100 100 ML @ 200 mls/hr IV.SIG ONCE ONE Rx#:[id number] Anesthesia Amount 600 / 600 Output: Urine 300 / 300 Estimated Blood Loss 20 / 20 Urine Amount (Catheter) 425 / 425 Indwelling Urethral Catheter 425 / 425 Other: Weight On Admission 40.91 kg Narrative: RLE: dressings clean and dry. intact. good cap refill - Urinary Catheter Management Indwelling Urethral Catheter Cath placed during this visit: yes Reason for continuing: Hourly intake/output Insertion date: 08/02/18 Insertion time: 09:13 Results - Labs CBC & Chem 7: 08/02/18 03:42 08/02/18 03:42 Laboratory Results - last 24 hr 08/02/18 08/02/18 08/02/18 03:42 03:42 08:04 WBC Differential Manual diff final Seg Neuts % (Manual) 67 Band Neuts % (Manual) 24 H Lymphocytes % (Manual) 6 L Monocytes % (Manual) 2 Metamyelocytes % (Man) 1 Abs Neuts (Manual) 13.2 H Platelet Estimate Normal Platelet Morphology Normal POC Glucose 248 H CK-MB (CK-2) 4.0 H CK-MB (CK-2) % 0.6 08/02/18 08/02/18 08/02/18 10:39 17:59 20:48 WBC Differential Seg Neuts % (Manual) Band Neuts % (Manual) Lymphocytes % (Manual) Monocytes % (Manual) Metamyelocytes % (Man) Abs Neuts (Manual) Platelet Estimate Platelet Morphology POC Glucose 281 H 265 H 268 H CK-MB (CK-2) CK-MB (CK-2) % Microbiology 08/01/18 19:20 Blood - Peripheral Aerobic Blood Culture - Preliminary No growth in 1 day 08/01/18 19:20 Blood - Peripheral Anaerobic Blood Culture - Preliminary No growth in 1 day 08/01/18 19:25 Blood - Peripheral Aerobic Blood Culture - Preliminary No growth in 1 day 08/01/18 19:25 Blood - Peripheral Anaerobic Blood Culture - Preliminary No growth in 1 day 08/02/18 04:30 Urine - Clean Catch Urine Streptococcus pneumoniae Antigen ( M - Final POS S. pneumoniae antigen 08/02/18 04:30 Urine - Clean Catch Urine Legionella Antigen - Final Presumptive negative for Legionella pneumophila serogroup 1 antigen in urine, suggesting no recent or recurrent infection. Infection due to Legionella cannot be ruled out since other serogroups and species may cause disease, antigen may not be present in urine in early infection, and the level of antigen present in the urine may be below the detection limit of the test. - Imaging Impressions Femur X-Ray 08/02/18 00:00 CONCLUSION: Limited images as detailed above. Assessment and Plan - Assessment and Plan 1) Right Intertrochanteric Hip Fx s/p IMN - POD 1 -50%WB -DVT prophylaxis -daily dressing changes POD 2 with xeroform/primapore -CM for DC planning -f/u with Papi or TOM in 2 weeks [facility] Prescription Drug Monitoring Database has been queried and verified prior to prescribing the controlled substance. Acute pain exception. This patient has normal, predicted, physiological, and time limited response to an adverse mechanical stimulus associated with surgery, trauma, or acute illness as described in my notes. There is a lack of alternative treatment options other than to include the prescribed narcotic treatment for this condition.
--- NOTE | 2018-08-03 07:02 | XR ---
EXAM DATE: 08/03/2018 6:30 AM EDT AGE/SEX: 47 years / Female INDICATIONS: Abdominal pain. CLINICAL DATA: This is the patient's subsequent encounter. Patient reports that signs and symptoms h ave been present for 1 day and indicates a pain score of Nonresponsive. MEDICAL/SURGICAL HISTORY: Non-responsive. Non-responsive. COMPARISON: [facility] [place], CT HIP RIGHT W/O CONTRAST, 08/01/2018. . FINDINGS: A single supine frontal view of the abdomen demonstrates air within bowel in a nonobstructive patter n. No organomegaly is appreciated. There are 3 coarse calcifications in the left pelvis measuring up to 1.[address] demonstrated these to be associated with the left ovary or represent phleboliths. Some type of tubing overlies the right abdomen. The visualized bones demonstrate no acute finding. V isualized lung bases are clear. There is partially visualized right proximal femur hardware. CONCLUSION: No acute abdominal abnormality is identified. Electronically signed by: Jv Flowers MD 08/03/2018 7:00 AM EDT
[2018-08-03 07:07] LABS: Hemoglobin 13.1 gm/dL (11.6-15.3); Mean Corpuscular HGB Conc 32.8 % (32.0-36.0); Mean Corpuscular Hemoglobin 32.2 pg (27.0-34.0); Mean Corpuscular Volume 98.1 fL (80.0-100.0); Mean Platelet Volume 8.8 fL (7.0-11.0); Platelet Count 179 th/mm3 (150-450); Red Blood Count 4.08 mil/mm3 (4.00-5.30); Red Cell Distribution Width 14.4 % (11.6-17.2); White Blood Count 14.8 th/mm3 (4.0-11.0)
[2018-08-03] MEDS: Calcium/Vitamin D 250/125 MG Tablet PO SCH ×4 (07:22→17:17)
[2018-08-03] MEDS: Insulin NovoLOG Aspart Correctional Sugar Inj SQ SCH ×4 (07:22→22:14)
[2018-08-03] MEDS: Sod Chloride 0.9% Inj 1,000 ML IV.CONT SCH ×5 (07:23→19:31)
[2018-08-03 07:32] LABS: Anion Gap 18 meq/L (5-15); Blood Urea Nitrogen 17 mg/dL (7-18); Calcium 9.1 mg/dL (8.5-10.1); Chloride 116 meq/L (98-107); Glomerular Filtration Rate Greater Than 89 mL/min (>89); Glucose,Random 323 mg/dL (74-106); Potassium 4.3 meq/L (3.5-5.1); Sodium 143 meq/L (136-145)
[2018-08-03] MEDS ORDERED: Insulin Detemir Inj 1,000 UNIT/10 ML Vial SQ SCH ×3 (09:00→23:58)
[2018-08-03] MEDS ORDERED: Metoprolol Tartrate 25 MG Tablet PO SCH (10:00)
[2018-08-03 10:03] LABS: Prothrombin Time 10.2 sec (9.8-11.6)
--- NOTE | 2018-08-03 10:11 | P.PN ---
Subjective Interval history: Follow up on patient with PNA, s/p ORIF right hip fracture. Patient seen and examined. Patient is nonverbal. She appears to be uncomfortable with palpation of her abdomen. She does not follow any commands. Discussed with ANNIE Ramirez, patient on mechanical soft diet at facility but concern for dysphagia. Physical Exam Vital signs: Vital Signs 08/02/18 10:09 08/02/18 10:10 08/02/18 10:15 Temperature 98.6 F Pulse Rate 106 H 109 H Respiratory Rate 21 18 Blood Pressure 133/97 H 133/97 H Pulse Oximetry 99 96 96 08/02/18 10:25 08/02/18 10:30 08/02/18 10:31 Temperature Pulse Rate 112 H 110 H 110 H Respiratory Rate 24 23 26 H Blood Pressure 158/92 H Pulse Oximetry 94 L 94 L 94 L 08/02/18 10:45 08/02/18 11:00 08/02/18 11:15 Temperature Pulse Rate 109 H 109 H 110 H Respiratory Rate 25 H 39 H 55 H Blood Pressure 150/71 H 145/67 H 152/71 H Pulse Oximetry 94 L 94 L 95 08/02/18 11:50 08/02/18 12:00 08/02/18 16:00 Temperature 98.0 F 98.7 F 98.9 F Pulse Rate 112 H 113 H 109 H Respiratory Rate 20 20 Blood Pressure 164/82 H 170/89 H 182/86 H Pulse Oximetry 96 96 98 08/02/18 16:18 08/02/18 18:57 08/02/18 20:00 Temperature 98.6 F 98.6 F Pulse Rate 114 H 109 H 109 H Respiratory Rate 16 20 18 Blood Pressure 170/79 H 152/75 H Pulse Oximetry 96 99 08/02/18 22:59 08/03/18 00:00 08/03/18 00:30 Temperature 98.8 F Pulse Rate 106 H Respiratory Rate 18 17 Blood Pressure 171/72 H Pulse Oximetry 99 99 08/03/18 04:00 08/03/18 04:11 08/03/18 08:00 Temperature 98.5 F 97.6 F Pulse Rate 115 H 76 115 H Respiratory Rate 18 16 16 Blood Pressure 192/88 H 183/89 H Pulse Oximetry 100 100 08/03/18 09:34 Temperature Pulse Rate Respiratory Rate Blood Pressure Pulse Oximetry 98 Intake & Output 08/02/18 08/03/18 08/03/18 18:59 06:59 18:59 Intake Total 1600 / 1600 350 / 350 Output Total 445 / 445 Balance 1155 / 1155 350 / 350 Intake: IV 1000 / 1000 350 / 350 NS Inj 1,000 ML @ 100 mls/hr IV 1000 / 1000 .CONT .Q10H JEN Rx#:[id number] Azithromycin Inj 250 MG In NS 250 / 250 Inj 250 ML @ 250 mls/hr IV.SIG Q24H JEN Rx#:[id number] Rocephin Inj 1,000 MG In NS Inj 100 / 100 100 ML @ 200 mls/hr IV.SIG Q24H JEN Rx#:[id number] Anesthesia Amount 600 / 600 Output: Estimated Blood Loss 20 / 20 Urine Amount (Catheter) 425 / 425 Indwelling Urethral Catheter 425 / 425 Narrative: GENERAL: This is an extremely thin, cachetic, malnourished female patient, in no acute distress. Awake. Nonverbal. Does not follow commands. Appears uncomfortable with palpation of her abdomen. SKIN: Warm and dry. HEAD: Atraumatic. Normocephalic. EYES: Pupils equal and round. No scleral icterus. No injection or drainage. ENT: No nasal bleeding or discharge. Dry mucous membranes. NECK: Trachea midline. No JVD. CARDIOVASCULAR: Regular rate and rhythm. RESPIRATORY: No accessory muscle use. Clear to auscultation. Breath sounds equal bilaterally. GASTROINTESTINAL: Abdomen soft, nondistended. ?tenderness to palpation, patient grimaces with touch. PEG tube in place. MUSCULOSKELETAL: Extremities without clubbing, cyanosis, or edema. s/p ORIF right hip, postop dressings in place C/D/I. NEUROLOGICAL: Awake and alert. Nonverbal. Does not follow commands. PSYCHIATRIC: Unable to assess, hx of anoxic brain injury. - Urinary Catheter Management Indwelling Urethral Catheter Cath placed during this visit: yes Reason for continuing: Hourly intake/output Insertion date: 08/02/18 Insertion time: 09:13 Results - Labs CBC & Chem 7: 08/03/18 06:23 08/03/18 15:18 Laboratory Results - last 24 hr 08/02/18 08/02/18 08/02/18 03:42 10:39 17:59 WBC RBC Hgb Hct MCV MCH MCHC RDW Plt Count MPV WBC Differential Manual diff final Seg Neuts % (Manual) 67 Band Neuts % (Manual) 24 H Lymphocytes % (Manual) 6 L Monocytes % (Manual) 2 Metamyelocytes % (Man) 1 Abs Neuts (Manual) 13.2 H Platelet Estimate Normal Platelet Morphology Normal Sodium Potassium Chloride Carbon Dioxide Anion Gap BUN Creatinine Estimated GFR POC Glucose 281 H 265 H Random Glucose Calcium 08/02/18 08/03/18 08/03/18 20:48 06:23 06:23 WBC 14.8 H RBC 4.08 Hgb 13.1 D Hct 40.0 MCV 98.1 MCH 32.2 MCHC 32.8 RDW 14.4 Plt Count 179 MPV 8.8 WBC Differential Seg Neuts % (Manual) Band Neuts % (Manual) Lymphocytes % (Manual) Monocytes % (Manual) Metamyelocytes % (Man) Abs Neuts (Manual) Platelet Estimate Platelet Morphology Sodium 143 Potassium 4.3 Chloride 116 H Carbon Dioxide 9.0 L Anion Gap 18 H BUN 17 Creatinine 0.66 Estimated GFR Greater than 89 POC Glucose 268 H Random Glucose 323 H Calcium 9.1 D 08/03/18 07:36 WBC RBC Hgb Hct MCV MCH MCHC RDW Plt Count MPV WBC Differential Seg Neuts % (Manual) Band Neuts % (Manual) Lymphocytes % (Manual) Monocytes % (Manual) Metamyelocytes % (Man) Abs Neuts (Manual) Platelet Estimate Platelet Morphology Sodium Potassium Chloride Carbon Dioxide Anion Gap BUN Creatinine Estimated GFR POC Glucose 382 H Random Glucose Calcium Microbiology 08/01/18 19:20 Blood - Peripheral Aerobic Blood Culture - Preliminary No growth in 1 day 08/01/18 19:20 Blood - Peripheral Anaerobic Blood Culture - Preliminary No growth in 1 day 08/01/18 19:25 Blood - Peripheral Aerobic Blood Culture - Preliminary No growth in 1 day 08/01/18 19:25 Blood - Peripheral Anaerobic Blood Culture - Preliminary No growth in 1 day 08/02/18 04:30 Urine - Clean Catch Urine Streptococcus pneumoniae Antigen ( M - Final POS S. pneumoniae antigen 08/02/18 04:30 Urine - Clean Catch Urine Legionella Antigen - Final Presumptive negative for Legionella pneumophila serogroup 1 antigen in urine, suggesting no recent or recurrent infection. Infection due to Legionella cannot be ruled out since other serogroups and species may cause disease, antigen may not be present in urine in early infection, and the level of antigen present in the urine may be below the detection limit of the test. - Imaging Impressions Femur X-Ray 08/02/18 00:00 CONCLUSION: Limited images as detailed above. Abdomen X-Ray 08/03/18 06:30 CONCLUSION: No acute abdominal abnormality is identified. 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 Severe sepsis secondary to pneumonia Chest x-ray reviewed and shows patchy infiltrates left lower lobe NS bolus x 2, cont IVF Continue IV antibiotics including azithromycin and Rocephin Nebs as needed Pneumococcal antigens positive CTA negative for PE but confirmed consolidation. ST consult for swallow evaluation, concern for aspiration. Reportedly, patient on mechanical soft diet at facility where she resides. Suspect DKA Anion gap metabolic acidosis ketonuria noted on UA Hyperglycemia with BS 382 appears to have abdominal pain on exam KUB unremarkable Obtain stat ABG monitor BS serial BMPs Rhabdomyolysis CPK 626 repeat CPK now monitor kidney function Continue on IVF Leukocytosis, possible steroid rxn patient is afebrile UA neg white count trending up, 11.9 -> 14.8 continue on IVF continue to monitor white count Hip fracture, right -Orthopedics following. Status post ORIF with leslie placement. -per Ortho, 50% WBAT. Begin daily dressings with xeroform and primapore tomorrow. Follow up with Dr. Turpin in 2 weeks. -monitor wound for healing -pain management with bowel regimen Hypertension, uncontrolled resume home Metoprolol 25mg BID Vasotec IV prn with parameters Continue to monitor BP and HR, adjust treatment accordingly Anoxic encephalopathy, chronic Resume home medication Resume home tube feeding regiment Severe protein calorie malnutrition [employer] following, on tube feedings Diabetes, chronic Blood sugars uncontrolled, BS 382 start on Levemir 5u BID Accu-Cheks with sliding scale insulin Other chronic conditions appear stable: Cont home medication DVT prophylaxis: SCDs Code Status: Full Discussed Condition With: nursing staff, Dr. Acevedo
[2018-08-03 10:25] LABS: ABG Base Excess -20.1 mmol/L (-2-2); ABG PCO2 15 mmHg (38-42); ABG PO2 130 mmHg (61-120)
[2018-08-03] MEDS: predniSONE 5 MG Tablet G-TUBE SCH (10:28)
[2018-08-03] MEDS: LORazepam 1 MG Tablet G-TUBE SCH (10:29)
[2018-08-03] MEDS: Amantadine Liq 100 MG/10 ML UDC G-TUBE SCH ×2 (10:30→20:54)
[2018-08-03] MEDS: Sodium Chloride 0.9% 2 ML Flush BID IV.FLUSH SCH ×2 (10:30→20:53)
[2018-08-03] MEDS: Enoxaparin Inj 30 MG/0.3 ML Syringe SQ SCH (10:33)
[2018-08-03 10:40] LABS: Alanine Aminotransferase 30 U/L (10-53); Albumin 3.3 g/dL (3.4-5.0); Anion Gap 25 meq/L (5-15); Aspartate Aminotransferase 21 U/L (15-37); Blood Urea Nitrogen 17 mg/dL (7-18); Calcium 8.3 mg/dL (8.5-10.1); Carbon Dioxide 7.5 meq/L (21.0-32.0); Chloride 116 meq/L (98-107); Glomerular Filtration Rate Greater Than 89 mL/min (>89); Glucose,Random 325 mg/dL (74-106); Potassium 4.4 meq/L (3.5-5.1); Sodium 148 meq/L (136-145)
[2018-08-03 10:42] LABS: Alkaline Phosphatase 145 U/L (45-117); Total Protein 7.6 g/dL (6.4-8.2)
[2018-08-03] MEDS ORDERED: Insulin Regular (For Infusion) 100 UNIT in Sodium Chlor 0.9% Inj 99 ML IV.CONT PRN (10:53)
[2018-08-03] MEDS ORDERED: Potassium Chlor 20 mEq Premix 20 MEQ/100 ML PIGGYBACK IV.SIG PRN ×3 (10:53)
[2018-08-03] MEDS ORDERED: Sodium Phosphate Inj 15 MMOL in Sodium Chlor 0.9% Inj 100 ML IV.SIG PRN (10:53)
[2018-08-03 10:58] LABS: CKMB Percent 1.5 % (0.0-4.0); Creatine Kinase MB 6.4 ng/mL (0.5-3.6)
[2018-08-03] MEDS ORDERED: Dextrose 5%/NaCl 0.9% Inj 1,000 ML IV.CONT SCH (11:00)
[2018-08-03 12:58] LABS: Bacteria,Urine Occasional /hpf; Bilirubin,Urine Negative (Negative); Clarity,Urine Clear (Clear); Color,Urine Yellow (Yellw/Straw); Glucose,Urine (UA) 500 or Greater mg/dL (Negative); Leukocyte Esterase,Urine Negative (Negative); Mucus,Urine Few /lpf (Occasional); Nitrite,Urine Negative (Negative); Specific Gravity,Urine 1.023 (1.002-1.035); Squamous Epithelial Cell,Urine <1 /hpf (0-5)
[2018-08-03 13:06] LABS: Hemoglobin A1c 8.9 % (4.3-6.0)
[2018-08-03] MEDS: Potassium Chlor 20 mEq Premix 20 MEQ/100 ML PIGGYBACK IV.SIG PRN ×2 (13:06→15:08)
[2018-08-03 14:39] LABS: ABG Base Excess -12.8 mmol/L (-2-2); ABG PCO2 23 mmHg (38-42); ABG PO2 152 mmHG (61-120)
[2018-08-03] MEDS ORDERED: Dextrose 50% in Water 50 ML Vial IV.PUSH PRN (15:26)
[2018-08-03] MEDS: Dextrose 5%/NaCl 0.45% Inj 1,000 ML IV.CONT SCH ×2 (15:30→20:21)
[2018-08-03] MEDS ORDERED: Insulin Aspart Prot 70/30 1,000 UNITS/10 ML Vial SQ ONE (15:45)
[2018-08-03 16:36] LABS: Anion Gap 8 meq/L (5-15); Blood Urea Nitrogen 18 mg/dL (7-18); Calcium 8.5 mg/dL (8.5-10.1); Carbon Dioxide 13.6 meq/L (21.0-32.0); Chloride 122 meq/L (98-107); Glomerular Filtration Rate Greater Than 89 mL/min (>89); Glucose,Random 204 mg/dL (74-106); Magnesium 2.3 mg/dL (1.5-2.5); Phosphorus 1.2 mg/dL (2.5-4.9); Potassium 3.7 meq/L (3.5-5.1); Sodium 144 meq/L (136-145)
[2018-08-03] MEDS: Potassium Phos/Sodium Phos 250 MG Tablet G-TUBE SCH (17:16)
[2018-08-03] MEDS: Azithromycin Inj 250 MG in Sodium Chlor 0.9% Inj 250 ML IV.SIG SCH (20:52)
[2018-08-03] MEDS: Metoprolol Tartrate 25 MG Tablet G-TUBE SCH (20:53)
[2018-08-03] MEDS: Mirtazapine 15 MG Tablet G-TUBE SCH (20:53)
[2018-08-03 23:31] LABS: Anion Gap 13 meq/L (5-15); Beta Hydroxybutyric Acid 0.68 mmol/L (0.00-0.39); Blood Urea Nitrogen 14 mg/dL (7-18); Calcium 7.8 mg/dL (8.5-10.1); Carbon Dioxide 18.6 meq/L (21.0-32.0); Chloride 114 meq/L (98-107); Glomerular Filtration Rate Greater Than 89 mL/min (>89); Glucose,Random 289 mg/dL (74-106); Magnesium 2.2 mg/dL (1.5-2.5); Phosphorus 1.4 mg/dL (2.5-4.9); Potassium 3.5 meq/L (3.5-5.1); Sodium 146 meq/L (136-145)
[2018-08-04] MEDS: Chlorhexidine Gluconate 2% 1 Pack (2 Cloths) TOPICAL SCH (03:05)
[2018-08-04] MEDS: Dextrose 5%/NaCl 0.45% Inj 1,000 ML IV.CONT SCH (03:05)
[2018-08-04] MEDS ORDERED: Chlorhexidine Gluconate 2% 1 Pack (2 Cloths) TOPICAL PRN (04:00)
[2018-08-04] MEDS ORDERED: Chlorhexidine Gluconate 2% 1 Pack (2 Cloths) TOPICAL SCH (04:00)
[2018-08-04] MEDS: Morphine Sulfate Inj 2 MG/ML Vial IV.PUSH PRN ×2 (06:02→21:51)
--- NOTE | 2018-08-04 07:46 | P.PNOP ---
Subjective Interval history: POD 2 s/p IMN right hip somnolent. does not respond Physical Exam Vital signs: Vital Signs 08/03/18 08:00 08/03/18 09:34 08/03/18 12:00 Temperature 97.6 F 98.0 F Pulse Rate 115 H 83 Respiratory Rate 16 24 Blood Pressure 183/89 H 167/84 H Pulse Oximetry 100 98 99 08/03/18 13:00 08/03/18 15:40 08/03/18 16:00 Temperature 98.8 F 98.9 F Pulse Rate 76 76 78 Respiratory Rate 21 12 16 Blood Pressure 142/89 H 156/82 H Pulse Oximetry 99 99 08/03/18 18:00 08/03/18 20:00 08/03/18 21:04 Temperature 98.7 F Pulse Rate 75 74 78 Respiratory Rate 19 18 Blood Pressure 168/91 H Pulse Oximetry 100 100 08/03/18 22:00 08/04/18 00:00 08/04/18 02:00 Temperature 98.9 F Pulse Rate 72 68 67 Respiratory Rate 24 Blood Pressure 149/82 H Pulse Oximetry 100 08/04/18 03:45 08/04/18 04:00 08/04/18 06:00 Temperature 97.9 F Pulse Rate 74 66 79 Respiratory Rate 20 15 Blood Pressure 159/80 H Pulse Oximetry 100 Intake & Output 08/03/18 08/04/18 08/04/18 18:59 06:59 18:59 Intake Total 1750 / 1750 2470 / 2470 Output Total 1125 / 1125 1350 / 1350 Balance 625 / 625 1120 / 1120 Weight 41 kg Intake: IV 1750 / 1750 2370 / 2370 D5W/1/2 NS Inj 1,000 ML @ 125 1000 / 1000 mls/hr IV.CONT .Q8H JEN Rx#: [id number] D5W/Normal Saline Inj 1,000 ML 300 / 300 @ 200 mls/hr IV.CONT .Q5H JNE Rx#:[id number] NovoLIN R (IV Infusion) 100 20 / 20 UNIT In NS Inj 99 ML @ 4 UNITS/ HR 4 mls/hr IV.CONT TITRATE PRN Rx#:[id number] NS Inj 1,000 ML @ 250 mls/hr IV 1250 / 1250 .CONT .Q4H JEN Rx#:[id number] Azithromycin Inj 250 MG In NS 250 / 250 Inj 250 ML @ 250 mls/hr IV.SIG Q24H JEN Rx#:[id number] KCl 20 mEq Premix Inj 20 meq In 200 / 200 100 ml @ 50 mls/hr IV.SIG Q2H PRN Rx#:[id number] Rocephin Inj 1,000 MG In NS Inj 100 / 100 100 ML @ 200 mls/hr IV.SIG Q24H JEN Rx#:[id number] Oral 100 / 100 Output: Urine 1125 / 1125 Urine Amount (Catheter) 1350 / 1350 Indwelling Urethral Catheter 1350 / 1350 Other: Date of Last Bowel Movement 08/04/18 # Bowel Movements 2 Narrative: RLE: dressings clean and dry. intact. +cap refill - Urinary Catheter Management Indwelling Urethral Catheter Cath placed during this visit: yes, but has since been removed by the nurse Reason for continuing: Decision to DC catheter Insertion date: 08/02/18 Insertion time: 09:13 Removal date: 08/04/18 Removal time: 06:00 Results - Labs CBC & Chem 7: 08/03/18 06:23 08/03/18 22:26 Laboratory Results - last 24 hr 08/03/18 08/03/18 08/03/18 06:23 07:36 09:19 PT 10.2 INR 1.0 APTT Puncture Site Patient Temperature O2 Saturation ABG pH ABG pCO2 ABG pO2 ABG HCO3 ABG O2 Content ABG Base Excess ABG Methemoglobin Tej Test Hemoglobin Carboxyhemoglobin O2 Delivery Device Liter Flow Critical Value Sodium Potassium Chloride Carbon Dioxide Anion Gap BUN Creatinine Estimated GFR POC Glucose 382 H Random Glucose Hemoglobin A1c 8.9 H Lactic Acid Calcium Phosphorus Magnesium Total Bilirubin AST ALT Alkaline Phosphatase Total Creatine Kinase CK-MB (CK-2) CK-MB (CK-2) % Total Protein Albumin Beta-Hydroxybutyric Acd Urine Color Urine Clarity Urine pH Ur Specific [place] Urine Protein Urine Glucose (UA) Urine Ketones Urine Occult Blood Urine Nitrate Urine Bilirubin Urine Urobilinogen Ur Leukocyte Esterase Urine RBC Urine WBC Ur Squamous Epith Cells Urine Bacteria Urine Mucus Micro UA Comment Ur Microscopic Review Urine Culture Comments Nasal Screen MRSA (PCR) 08/03/18 08/03/18 08/03/18 09:19 09:19 09:19 PT INR APTT 28.9 Puncture Site Patient Temperature O2 Saturation ABG pH ABG pCO2 ABG pO2 ABG HCO3 ABG O2 Content ABG Base Excess ABG Methemoglobin Tej Test Hemoglobin Carboxyhemoglobin O2 Delivery Device Liter Flow Critical Value Sodium 148 H Potassium 4.4 Chloride 116 H Carbon Dioxide 7.5 L Anion Gap 25 H BUN 17 Creatinine 0.66 Estimated GFR Greater than 89 POC Glucose Random Glucose 325 H Hemoglobin A1c Lactic Acid Calcium 8.3 L D Phosphorus Magnesium Total Bilirubin 0.6 AST 21 ALT 30 Alkaline Phosphatase 145 H Total Creatine Kinase 425 H CK-MB (CK-2) 6.4 H CK-MB (CK-2) % 1.5 Total Protein 7.6 Albumin 3.3 L Beta-Hydroxybutyric Acd Urine Color Urine Clarity Urine pH Ur Specific [place] Urine Protein Urine Glucose (UA) Urine Ketones Urine Occult Blood Urine Nitrate Urine Bilirubin Urine Urobilinogen Ur Leukocyte Esterase Urine RBC Urine WBC Ur Squamous Epith Cells Urine Bacteria Urine Mucus Micro UA Comment Ur Microscopic Review Urine Culture Comments Nasal Screen MRSA (PCR) 08/03/18 08/03/18 08/03/18 10:20 11:10 11:22 PT INR APTT Puncture Site Left radial Patient Temperature 98.6 O2 Saturation 95 ABG pH 7.24 L* ABG pCO2 15 L* ABG pO2 130 H ABG HCO3 6 L* ABG O2 Content 18.4 ABG Base Excess -20.1 L ABG Methemoglobin 1.2 Tej Test Present Hemoglobin 13.6 Carboxyhemoglobin 0.2 O2 Delivery Device Nasal cannula Liter Flow 3.00 Critical Value Yes Sodium Potassium Chloride Carbon Dioxide Anion Gap BUN Creatinine Estimated GFR POC Glucose Random Glucose Hemoglobin A1c Lactic Acid Calcium Phosphorus Magnesium Total Bilirubin AST ALT Alkaline Phosphatase Total Creatine Kinase CK-MB (CK-2) CK-MB (CK-2) % Total Protein Albumin Beta-Hydroxybutyric Acd Urine Color Yellow Urine Clarity Clear Urine pH 5.0 Ur Specific [place] 1.023 Urine Protein Negative Urine Glucose (UA) 500 or greater Urine Ketones 80 or greater H Urine Occult Blood Small H Urine Nitrate Negative Urine Bilirubin Negative Urine Urobilinogen Less than 2 Ur Leukocyte Esterase Negative Urine RBC 1 Urine WBC Less than 1 Ur Squamous Epith Cells <1 Urine Bacteria Occasional H Urine Mucus Few H Micro UA Comment Culture not ind Ur Microscopic Review Not Reportable Urine Culture Comments Culture not ind Nasal Screen MRSA (PCR) Not detected 10/11/18 10/11/18 10/11/18 11:42 12:30 12:55 PT INR APTT Puncture Site Patient Temperature O2 Saturation ABG pH ABG pCO2 ABG pO2 ABG HCO3 ABG O2 Content ABG Base Excess ABG Methemoglobin Tej Test Hemoglobin Carboxyhemoglobin O2 Delivery Device Liter Flow Critical Value Sodium Potassium Chloride Carbon Dioxide Anion Gap BUN Creatinine Estimated GFR POC Glucose 326 H 324 H Random Glucose Hemoglobin A1c Lactic Acid 1.2 Calcium Phosphorus Magnesium Total Bilirubin AST ALT Alkaline Phosphatase Total Creatine Kinase CK-MB (CK-2) CK-MB (CK-2) % Total Protein Albumin Beta-Hydroxybutyric Acd Urine Color Urine Clarity Urine pH Ur Specific [place] Urine Protein Urine Glucose (UA) Urine Ketones Urine Occult Blood Urine Nitrate Urine Bilirubin Urine Urobilinogen Ur Leukocyte Esterase Urine RBC Urine WBC Ur Squamous Epith Cells Urine Bacteria Urine Mucus Micro UA Comment Ur Microscopic Review Urine Culture Comments Nasal Screen MRSA (PCR) 08/03/18 08/03/18 08/03/18 14:03 14:30 15:08 PT INR APTT Puncture Site Right radial Patient Temperature 98.6 O2 Saturation 96 ABG pH 7.34 L ABG pCO2 23 L* ABG pO2 152 H ABG HCO3 12 L* ABG O2 Content 17.2 ABG Base Excess -12.8 L ABG Methemoglobin 1.4 Tej Test Present Hemoglobin 12.6 Carboxyhemoglobin 0.0 O2 Delivery Device Nasal cannula Liter Flow 2.00 Critical Value Yes Sodium Potassium Chloride Carbon Dioxide Anion Gap BUN Creatinine Estimated GFR POC Glucose 243 H 199 H Random Glucose Hemoglobin A1c Lactic Acid Calcium Phosphorus Magnesium Total Bilirubin AST ALT Alkaline Phosphatase Total Creatine Kinase CK-MB (CK-2) CK-MB (CK-2) % Total Protein Albumin Beta-Hydroxybutyric Acd Urine Color Urine Clarity Urine pH Ur Specific [place] Urine Protein Urine Glucose (UA) Urine Ketones Urine Occult Blood Urine Nitrate Urine Bilirubin Urine Urobilinogen Ur Leukocyte Esterase Urine RBC Urine WBC Ur Squamous Epith Cells Urine Bacteria Urine Mucus Micro UA Comment Ur Microscopic Review Urine Culture Comments Nasal Screen MRSA (PCR) 08/03/18 08/03/18 08/03/18 15:18 16:22 17:02 PT INR APTT Puncture Site Patient Temperature O2 Saturation ABG pH ABG pCO2 ABG pO2 ABG HCO3 ABG O2 Content ABG Base Excess ABG Methemoglobin Tej Test Hemoglobin Carboxyhemoglobin O2 Delivery Device Liter Flow Critical Value Sodium 144 Potassium 3.7 Chloride 122 H Carbon Dioxide 13.6 L Anion Gap 8 BUN 18 Creatinine 0.59 Estimated GFR Greater than 89 POC Glucose 247 H 278 H Random Glucose 204 H D Hemoglobin A1c Lactic Acid Calcium 8.5 Phosphorus 1.2 L Magnesium 2.3 Total Bilirubin AST ALT Alkaline Phosphatase Total Creatine Kinase CK-MB (CK-2) CK-MB (CK-2) % Total Protein Albumin Beta-Hydroxybutyric Acd Urine Color Urine Clarity Urine pH Ur Specific [place] Urine Protein Urine Glucose (UA) Urine Ketones Urine Occult Blood Urine Nitrate Urine Bilirubin Urine Urobilinogen Ur Leukocyte Esterase Urine RBC Urine WBC Ur Squamous Epith Cells Urine Bacteria Urine Mucus Micro UA Comment Ur Microscopic Review Urine Culture Comments Nasal Screen MRSA (PCR) 08/03/18 08/03/18 08/03/18 18:15 19:28 21:00 PT INR APTT Puncture Site Patient Temperature O2 Saturation ABG pH ABG pCO2 ABG pO2 ABG HCO3 ABG O2 Content ABG Base Excess ABG Methemoglobin Tej Test Hemoglobin Carboxyhemoglobin O2 Delivery Device Liter Flow Critical Value Sodium Potassium Chloride Carbon Dioxide Anion Gap BUN Creatinine Estimated GFR POC Glucose 325 H 309 H 287 H Random Glucose Hemoglobin A1c Lactic Acid Calcium Phosphorus Magnesium Total Bilirubin AST ALT Alkaline Phosphatase Total Creatine Kinase CK-MB (CK-2) CK-MB (CK-2) % Total Protein Albumin Beta-Hydroxybutyric Acd Urine Color Urine Clarity Urine pH Ur Specific [place] Urine Protein Urine Glucose (UA) Urine Ketones Urine Occult Blood Urine Nitrate Urine Bilirubin Urine Urobilinogen Ur Leukocyte Esterase Urine RBC Urine WBC Ur Squamous Epith Cells Urine Bacteria Urine Mucus Micro UA Comment Ur Microscopic Review Urine Culture Comments Nasal Screen MRSA (PCR) 08/03/18 08/04/18 22:26 02:40 PT INR APTT Puncture Site Patient Temperature O2 Saturation ABG pH ABG pCO2 ABG pO2 ABG HCO3 ABG O2 Content ABG Base Excess ABG Methemoglobin Tej Test Hemoglobin Carboxyhemoglobin O2 Delivery Device Liter Flow Critical Value Sodium 146 H Potassium 3.5 Chloride 114 H D Carbon Dioxide 18.6 L Anion Gap 13 BUN 14 Creatinine 0.53 Estimated GFR Greater than 89 POC Glucose 241 H Random Glucose 289 H Hemoglobin A1c Lactic Acid Calcium 7.8 L Phosphorus 1.4 L Magnesium 2.2 Total Bilirubin AST ALT Alkaline Phosphatase Total Creatine Kinase CK-MB (CK-2) CK-MB (CK-2) % Total Protein Albumin Beta-Hydroxybutyric Acd 0.68 H Urine Color Urine Clarity Urine pH Ur Specific [place] Urine Protein Urine Glucose (UA) Urine Ketones Urine Occult Blood Urine Nitrate Urine Bilirubin Urine Urobilinogen Ur Leukocyte Esterase Urine RBC Urine WBC Ur Squamous Epith Cells Urine Bacteria Urine Mucus Micro UA Comment Ur Microscopic Review Urine Culture Comments Nasal Screen MRSA (PCR) Microbiology 08/01/18 19:20 Blood - Peripheral Aerobic Blood Culture - Preliminary No growth in 2 days 08/01/18 19:20 Blood - Peripheral Anaerobic Blood Culture - Preliminary No growth in 2 days 08/01/18 19:25 Blood - Peripheral Aerobic Blood Culture - Preliminary No growth in 2 days 08/01/18 19:25 Blood - Peripheral Anaerobic Blood Culture - Preliminary No growth in 2 days Assessment and Plan - Assessment and Plan 1) Right Intertrochanteric Hip Fx s/p IMN - POD 2 -50%WB -DVT prophylaxis -daily dressing changes POD 2 with xeroform/primapore -CM for DC planning -f/u with [facility] or [facility] in 2 weeks [facility] Prescription Drug Monitoring Database has been queried and verified prior to prescribing the controlled substance. Acute pain exception. This patient has normal, predicted, physiological, and time limited response to an adverse mechanical stimulus associated with surgery, trauma, or acute illness as described in my notes. There is a lack of alternative treatment options other than to include the prescribed narcotic treatment for this condition.
[2018-08-04] MEDS: Insulin NovoLOG Aspart Correctional Sugar Inj SQ SCH ×4 (07:58→21:44)
[2018-08-04] MEDS ORDERED: Insulin Detemir Inj 1,000 UNIT/10 ML Vial SQ ONE (08:00)
[2018-08-04] MEDS: LORazepam 1 MG Tablet G-TUBE SCH (08:15)
[2018-08-04] MEDS: Potassium Phos/Sodium Phos 250 MG Tablet G-TUBE SCH ×3 (08:15→17:55)
[2018-08-04] MEDS: Amantadine Liq 100 MG/10 ML UDC G-TUBE SCH ×2 (08:15→21:44)
[2018-08-04] MEDS: predniSONE 5 MG Tablet G-TUBE SCH (08:15)
[2018-08-04] MEDS: Metoprolol Tartrate 25 MG Tablet G-TUBE SCH ×2 (08:15→21:44)
[2018-08-04] MEDS: Calcium/Vitamin D 250/125 MG Tablet PO SCH ×3 (08:39→17:56)
[2018-08-04] MEDS: Sodium Chloride 0.9% 2 ML Flush BID IV.FLUSH SCH ×2 (08:40→21:44)
[2018-08-04 09:53] LABS: Baso % (Auto) 0.2 % (0.0-2.0); Eos # (Auto) 0.1 th/mm3 (0.0-0.4); Eos % (Auto) 0.8 % (0.0-4.0); Hematocrit 37.4 % (35.0-46.0); Hemoglobin 12.4 gm/dL (11.6-15.3); Lymph # (Auto) 1.7 th/mm3 (1.0-4.8); Mean Corpuscular HGB Conc 33.2 % (32.0-36.0); Mean Corpuscular Hemoglobin 31.7 pg (27.0-34.0); Mean Corpuscular Volume 95.7 fL (80.0-100.0); Mean Platelet Volume 8.9 fL (7.0-11.0); Mono # (Auto) 0.5 th/mm3 (0.0-0.9); Mono % (Auto) 5.6 % (0.0-8.0); Neut # (Auto) 6.9 th/mm3 (1.8-7.7); Neut % (Auto) 75.4 % (16.0-70.0); Platelet Count 143 th/mm3 (150-450); Red Blood Count 3.91 mil/mm3 (4.00-5.30); White Blood Count 9.2 th/mm3 (4.0-11.0)
[2018-08-04 09:59] LABS: Anion Gap 9 meq/L (5-15); Beta Hydroxybutyric Acid 0.13 mmol/L (0.00-0.39); Blood Urea Nitrogen 10 mg/dL (7-18); Chloride 113 meq/L (98-107); Glomerular Filtration Rate Greater Than 89 mL/min (>89); Glucose,Random 238 mg/dL (74-106); Magnesium 1.9 mg/dL (1.5-2.5); Phosphorus 1.1 mg/dL (2.5-4.9); Potassium 3.3 meq/L (3.5-5.1); Sodium 141 meq/L (136-145)
[2018-08-04] MEDS: Enoxaparin Inj 30 MG/0.3 ML Syringe SQ SCH (12:09)
--- NOTE | 2018-08-04 12:21 | P.PN ---
Subjective Interval history: Follow up on patient with PNA, s/p ORIF right hip fracture. DKA. Patient is resting in bed. No fever or chills. DKA is resolved. Per RN, patient is tolerating diet well. Physical Exam Vital signs: Vital Signs 08/03/18 13:00 08/03/18 15:40 08/03/18 16:00 Temperature 98.8 F 98.9 F Pulse Rate 76 76 78 Respiratory Rate 21 12 16 Blood Pressure 142/89 H 156/82 H Pulse Oximetry 99 99 08/03/18 18:00 08/03/18 20:00 08/03/18 21:04 Temperature 98.7 F Pulse Rate 75 74 78 Respiratory Rate 19 18 Blood Pressure 168/91 H Pulse Oximetry 100 100 08/03/18 22:00 08/04/18 00:00 08/04/18 02:00 Temperature 98.9 F Pulse Rate 72 68 67 Respiratory Rate 24 Blood Pressure 149/82 H Pulse Oximetry 100 08/04/18 03:45 08/04/18 04:00 08/04/18 06:00 Temperature 97.9 F Pulse Rate 74 66 79 Respiratory Rate 20 15 Blood Pressure 159/80 H Pulse Oximetry 100 08/04/18 07:52 08/04/18 10:19 Temperature Pulse Rate 69 Respiratory Rate 18 Blood Pressure Pulse Oximetry 100 Intake & Output 08/03/18 08/04/18 08/04/18 18:59 06:59 18:59 Intake Total 1750 / 1750 2470 / 2470 Output Total 1125 / 1125 1350 / 1350 Balance 625 / 625 1120 / 1120 Weight 41 kg Intake: IV 1750 / 1750 2370 / 2370 D5W/1/2 NS Inj 1,000 ML @ 125 1000 / 1000 mls/hr IV.CONT .Q8H JEN Rx#: [id number] D5W/Normal Saline Inj 1,000 ML 300 / 300 @ 200 mls/hr IV.CONT .Q5H JEN Rx#:[id number] NovoLIN R (IV Infusion) 100 20 / 20 UNIT In NS Inj 99 ML @ 4 UNITS/ HR 4 mls/hr IV.CONT TITRATE PRN Rx#:[id number] NS Inj 1,000 ML @ 250 mls/hr IV 1250 / 1250 .CONT .Q4H JEN Rx#:[id number] Azithromycin Inj 250 MG In NS 250 / 250 Inj 250 ML @ 250 mls/hr IV.SIG Q24H JEN Rx#:[id number] KCl 20 mEq Premix Inj 20 meq In 200 / 200 100 ml @ 50 mls/hr IV.SIG Q2H PRN Rx#:[id number] Rocephin Inj 1,000 MG In NS Inj 100 / 100 100 ML @ 200 mls/hr IV.SIG Q24H JEN Rx#:[id number] Oral 100 / 100 Output: Urine 1125 / 1125 Urine Amount (Catheter) 1350 / 1350 Indwelling Urethral Catheter 1350 / 1350 Other: Date of Last Bowel Movement 08/04/18 # Bowel Movements 2 Narrative: GENERAL: thin, cachetic female. Non-verbal. Does not follow commands. SKIN: Warm and dry. HEAD: Normocephalic. EYES: No scleral icterus. No injection or drainage. NECK: Supple, trachea midline. No JVD or lymphadenopathy. CARDIOVASCULAR: Regular rate and rhythm without murmurs, gallops, or rubs. RESPIRATORY: Breath sounds equal bilaterally. No accessory muscle use. GASTROINTESTINAL: Abdomen soft, non-tender, nondistended. MUSCULOSKELETAL: No cyanosis, or edema. BACK: Nontender without obvious deformity. No CVA tenderness. - Urinary Catheter Management Indwelling Urethral Catheter Cath placed during this visit: yes, but has since been removed by the nurse Reason for continuing: Decision to DC catheter Insertion date: 08/02/18 Insertion time: 09:13 Removal date: 08/04/18 Removal time: 06:00 Results - Labs CBC & Chem 7: 08/04/18 09:13 08/04/18 09:13 Laboratory Results - last 24 hr 08/03/18 08/03/18 08/03/18 06:23 11:10 11:22 WBC RBC Hgb Hct MCV MCH MCHC RDW Plt Count MPV Neut % (Auto) Lymph % (Auto) Cottle % (Auto) Eos % (Auto) Baso % (Auto) Neut # (Auto) Lymph # (Auto) Cottle # (Auto) Eos # (Auto) Baso # (Auto) WBC Differential Differential Comment Puncture Site Patient Temperature O2 Saturation ABG pH ABG pCO2 ABG pO2 ABG HCO3 ABG O2 Content ABG Base Excess ABG Methemoglobin Tej Test Hemoglobin Carboxyhemoglobin O2 Delivery Device Liter Flow Critical Value Sodium Potassium Chloride Carbon Dioxide Anion Gap BUN Creatinine Estimated GFR POC Glucose Random Glucose Hemoglobin A1c 8.9 H Lactic Acid Calcium Phosphorus Magnesium Beta-Hydroxybutyric Acd Urine Color Yellow Urine Clarity Clear Urine pH 5.0 Ur Specific Barling 1.023 Urine Protein Negative Urine Glucose (UA) 500 or greater Urine Ketones 80 or greater H Urine Occult Blood Small H Urine Nitrate Negative Urine Bilirubin Negative Urine Urobilinogen Less than 2 Ur Leukocyte Esterase Negative Urine RBC 1 Urine WBC Less than 1 Ur Squamous Epith Cells <1 Urine Bacteria Occasional H Urine Mucus Few H Micro UA Comment Culture not ind Ur Microscopic Review Not Reportable Urine Culture Comments Culture not ind Nasal Screen MRSA (PCR) Not detected 08/03/18 08/03/18 08/03/18 12:30 12:55 14:03 WBC RBC Hgb Hct MCV MCH MCHC RDW Plt Count MPV Neut % (Auto) Lymph % (Auto) Cottle % (Auto) Eos % (Auto) Baso % (Auto) Neut # (Auto) Lymph # (Auto) Cottle # (Auto) Eos # (Auto) Baso # (Auto) WBC Differential Differential Comment Puncture Site Patient Temperature O2 Saturation ABG pH ABG pCO2 ABG pO2 ABG HCO3 ABG O2 Content ABG Base Excess ABG Methemoglobin Tej Test Hemoglobin Carboxyhemoglobin O2 Delivery Device Liter Flow Critical Value Sodium Potassium Chloride Carbon Dioxide Anion Gap BUN Creatinine Estimated GFR POC Glucose 324 H 243 H Random Glucose Hemoglobin A1c Lactic Acid 1.2 Calcium Phosphorus Magnesium Beta-Hydroxybutyric Acd Urine Color Urine Clarity Urine pH Ur Specific Barling Urine Protein Urine Glucose (UA) Urine Ketones Urine Occult Blood Urine Nitrate Urine Bilirubin Urine Urobilinogen Ur Leukocyte Esterase Urine RBC Urine WBC Ur Squamous Epith Cells Urine Bacteria Urine Mucus Micro UA Comment Ur Microscopic Review Urine Culture Comments Nasal Screen MRSA (PCR) 08/03/18 08/03/18 08/03/18 14:30 15:08 15:18 WBC RBC Hgb Hct MCV MCH MCHC RDW Plt Count MPV Neut % (Auto) Lymph % (Auto) Cottle % (Auto) Eos % (Auto) Baso % (Auto) Neut # (Auto) Lymph # (Auto) Cottle # (Auto) Eos # (Auto) Baso # (Auto) WBC Differential Differential Comment Puncture Site Right radial Patient Temperature 98.6 O2 Saturation 96 ABG pH 7.34 L ABG pCO2 23 L* ABG pO2 152 H ABG HCO3 12 L* ABG O2 Content 17.2 ABG Base Excess -12.8 L ABG Methemoglobin 1.4 Tej Test Present Hemoglobin 12.6 Carboxyhemoglobin 0.0 O2 Delivery Device Nasal cannula Liter Flow 2.00 Critical Value Yes Sodium 144 Potassium 3.7 Chloride 122 H Carbon Dioxide 13.6 L Anion Gap 8 BUN 18 Creatinine 0.59 Estimated GFR Greater than 89 POC Glucose 199 H Random Glucose 204 H D Hemoglobin A1c Lactic Acid Calcium 8.5 Phosphorus 1.2 L Magnesium 2.3 Beta-Hydroxybutyric Acd Urine Color Urine Clarity Urine pH Ur Specific Barling Urine Protein Urine Glucose (UA) Urine Ketones Urine Occult Blood Urine Nitrate Urine Bilirubin Urine Urobilinogen Ur Leukocyte Esterase Urine RBC Urine WBC Ur Squamous Epith Cells Urine Bacteria Urine Mucus Micro UA Comment Ur Microscopic Review Urine Culture Comments Nasal Screen MRSA (PCR) 08/03/18 08/03/18 08/03/18 16:22 17:02 18:15 WBC RBC Hgb Hct MCV MCH MCHC RDW Plt Count MPV Neut % (Auto) Lymph % (Auto) Cottle % (Auto) Eos % (Auto) Baso % (Auto) Neut # (Auto) Lymph # (Auto) Cottle # (Auto) Eos # (Auto) Baso # (Auto) WBC Differential Differential Comment Puncture Site Patient Temperature O2 Saturation ABG pH ABG pCO2 ABG pO2 ABG HCO3 ABG O2 Content ABG Base Excess ABG Methemoglobin Tej Test Hemoglobin Carboxyhemoglobin O2 Delivery Device Liter Flow Critical Value Sodium Potassium Chloride Carbon Dioxide Anion Gap BUN Creatinine Estimated GFR POC Glucose 247 H 278 H 325 H Random Glucose Hemoglobin A1c Lactic Acid Calcium Phosphorus Magnesium Beta-Hydroxybutyric Acd Urine Color Urine Clarity Urine pH Ur Specific Barling Urine Protein Urine Glucose (UA) Urine Ketones Urine Occult Blood Urine Nitrate Urine Bilirubin Urine Urobilinogen Ur Leukocyte Esterase Urine RBC Urine WBC Ur Squamous Epith Cells Urine Bacteria Urine Mucus Micro UA Comment Ur Microscopic Review Urine Culture Comments Nasal Screen MRSA (PCR) 08/03/18 08/03/18 08/03/18 19:28 21:00 22:26 WBC RBC Hgb Hct MCV MCH MCHC RDW Plt Count MPV Neut % (Auto) Lymph % (Auto) Cottle % (Auto) Eos % (Auto) Baso % (Auto) Neut # (Auto) Lymph # (Auto) Cottle # (Auto) Eos # (Auto) Baso # (Auto) WBC Differential Differential Comment Puncture Site Patient Temperature O2 Saturation ABG pH ABG pCO2 ABG pO2 ABG HCO3 ABG O2 Content ABG Base Excess ABG Methemoglobin Tej Test Hemoglobin Carboxyhemoglobin O2 Delivery Device Liter Flow Critical Value Sodium 146 H Potassium 3.5 Chloride 114 H D Carbon Dioxide 18.6 L Anion Gap 13 BUN 14 Creatinine 0.53 Estimated GFR Greater than 89 POC Glucose 309 H 287 H Random Glucose 289 H Hemoglobin A1c Lactic Acid Calcium 7.8 L Phosphorus 1.4 L Magnesium 2.2 Beta-Hydroxybutyric Acd 0.68 H Urine Color Urine Clarity Urine pH Ur Specific Barling Urine Protein Urine Glucose (UA) Urine Ketones Urine Occult Blood Urine Nitrate Urine Bilirubin Urine Urobilinogen Ur Leukocyte Esterase Urine RBC Urine WBC Ur Squamous Epith Cells Urine Bacteria Urine Mucus Micro UA Comment Ur Microscopic Review Urine Culture Comments Nasal Screen MRSA (PCR) 08/04/18 08/04/18 08/04/18 02:40 07:48 09:13 WBC 9.2 RBC 3.91 L Hgb 12.4 Hct 37.4 MCV 95.7 MCH 31.7 MCHC 33.2 RDW 14.0 Plt Count 143 L MPV 8.9 Neut % (Auto) 75.4 H Lymph % (Auto) 18.0 Cottle % (Auto) 5.6 Eos % (Auto) 0.8 Baso % (Auto) 0.2 Neut # (Auto) 6.9 Lymph # (Auto) 1.7 Cottle # (Auto) 0.5 Eos # (Auto) 0.1 Baso # (Auto) 0.0 WBC Differential . Differential Comment Auto diff final Puncture Site Patient Temperature O2 Saturation ABG pH ABG pCO2 ABG pO2 ABG HCO3 ABG O2 Content ABG Base Excess ABG Methemoglobin Tej Test Hemoglobin Carboxyhemoglobin O2 Delivery Device Liter Flow Critical Value Sodium Potassium Chloride Carbon Dioxide Anion Gap BUN Creatinine Estimated GFR POC Glucose 241 H 239 H Random Glucose Hemoglobin A1c Lactic Acid Calcium Phosphorus Magnesium Beta-Hydroxybutyric Acd Urine Color Urine Clarity Urine pH Ur Specific Barling Urine Protein Urine Glucose (UA) Urine Ketones Urine Occult Blood Urine Nitrate Urine Bilirubin Urine Urobilinogen Ur Leukocyte Esterase Urine RBC Urine WBC Ur Squamous Epith Cells Urine Bacteria Urine Mucus Micro UA Comment Ur Microscopic Review Urine Culture Comments Nasal Screen MRSA (PCR) 08/04/18 08/04/18 09:13 09:13 WBC RBC Hgb Hct MCV MCH MCHC RDW Plt Count MPV Neut % (Auto) Lymph % (Auto) Cottle % (Auto) Eos % (Auto) Baso % (Auto) Neut # (Auto) Lymph # (Auto) Cottle # (Auto) Eos # (Auto) Baso # (Auto) WBC Differential Differential Comment Puncture Site Patient Temperature O2 Saturation ABG pH ABG pCO2 ABG pO2 ABG HCO3 ABG O2 Content ABG Base Excess ABG Methemoglobin Tej Test Hemoglobin Carboxyhemoglobin O2 Delivery Device Liter Flow Critical Value Sodium Cancelled 141 Potassium Cancelled 3.3 L Chloride Cancelled 113 H Carbon Dioxide Cancelled 19.0 L Anion Gap Cancelled 9 BUN Cancelled 10 Creatinine Cancelled 0.47 L Estimated GFR Cancelled Greater than 89 POC Glucose Random Glucose Cancelled 238 H Hemoglobin A1c Lactic Acid Calcium Cancelled 8.0 L Phosphorus Cancelled 1.1 L Magnesium Cancelled 1.9 Beta-Hydroxybutyric Acd 0.13 D Urine Color Urine Clarity Urine pH Ur Specific Barling Urine Protein Urine Glucose (UA) Urine Ketones Urine Occult Blood Urine Nitrate Urine Bilirubin Urine Urobilinogen Ur Leukocyte Esterase Urine RBC Urine WBC Ur Squamous Epith Cells Urine Bacteria Urine Mucus Micro UA Comment Ur Microscopic Review Urine Culture Comments Nasal Screen MRSA (PCR) Microbiology 08/01/18 19:20 Blood - Peripheral Aerobic Blood Culture - Preliminary No growth in 3 days 08/01/18 19:20 Blood - Peripheral Anaerobic Blood Culture - Preliminary No growth in 3 days 08/01/18 19:25 Blood - Peripheral Aerobic Blood Culture - Preliminary No growth in 3 days 08/01/18 19:25 Blood - Peripheral Anaerobic Blood Culture - Preliminary No growth in 3 days Assessment and Plan - Plan 47 y/o female with a 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 Severe sepsis secondary to pneumonia Chest x-ray reviewed and shows patchy infiltrates left lower lobe NS bolus x 2, cont IVF Continue IV antibiotics including azithromycin and Rocephin Nebs as needed Pneumococcal antigens positive CTA negative for PE but confirmed consolidation. ST consult for swallow evaluation, concern for aspiration. Reportedly, patient on mechanical soft diet at facility where she resides. DKA - Resolved. Anion gap metabolic acidosis resolved. Received IV insulin drip. Currently on SQ insulin. Rhabdomyolysis CPK 626 --> 425. No further work up/treatment. Hip fracture, right -Orthopedics following. Status post ORIF with leslie placement. -per Ortho, 50% WBAT. daily dressings with xeroform and primapore. Follow up with Dr. Turpin in 2 weeks. -monitor wound for healing -pain management with bowel regimen Hypertension, uncontrolled resume home Metoprolol 25mg BID Vasotec IV prn with parameters Continue to monitor BP and HR, adjust treatment accordingly Anoxic encephalopathy, chronic Resume home medication Resume home tube feeding regiment Severe protein calorie malnutrition On mechanical soft Diabetic diet. Diabetes Mellitus Will keep patient on high sliding scale insulin and Levemir 12 units QHS. Hypokalemia - K+ today 3.3. Will replace with IV KCL 40meQ. DVT prophylaxis: SCDs Code Status: Full Potential discharge to [facility] in the next 1-2 days.
[2018-08-04] MEDS: Potassium Chlor 20 mEq Premix 20 MEQ/100 ML PIGGYBACK IV.SIG SCH ×2 (14:05→16:18)
[2018-08-04] MEDS: Azithromycin Inj 250 MG in Sodium Chlor 0.9% Inj 250 ML IV.SIG SCH (21:43)
[2018-08-04] MEDS: Mirtazapine 15 MG Tablet G-TUBE SCH (21:44)
[2018-08-05] MEDS: Chlorhexidine Gluconate 2% 1 Pack (2 Cloths) TOPICAL SCH (04:00)
[2018-08-05] MEDS: Dextrose 5%/NaCl 0.45% Inj 1,000 ML IV.CONT SCH (07:51)
[2018-08-05] MEDS: Metoprolol Tartrate 25 MG Tablet G-TUBE SCH (08:43)
[2018-08-05] MEDS: LORazepam 1 MG Tablet G-TUBE SCH (08:43)
[2018-08-05] MEDS: Calcium/Vitamin D 250/125 MG Tablet PO SCH ×2 (08:43→12:28)
[2018-08-05] MEDS: Amantadine Liq 100 MG/10 ML UDC G-TUBE SCH (08:43)
[2018-08-05] MEDS: predniSONE 5 MG Tablet G-TUBE SCH (08:44)
[2018-08-05] MEDS: Sodium Chloride 0.9% 2 ML Flush BID IV.FLUSH SCH (08:44)
[2018-08-05] MEDS: Insulin NovoLOG Aspart Correctional Sugar Inj SQ SCH ×2 (08:44→12:38)
[2018-08-05] MEDS: Potassium Phos/Sodium Phos 250 MG Tablet G-TUBE SCH ×2 (08:44→12:28)
[2018-08-05] MEDS: Enoxaparin Inj 30 MG/0.3 ML Syringe SQ SCH (09:46)
[2018-08-05] MEDS: Morphine Sulfate Inj 2 MG/ML Vial IV.PUSH PRN (11:04)
[2018-08-05 11:19] LABS: Anion Gap 8 meq/L (5-15); Blood Urea Nitrogen 8 mg/dL (7-18); Calcium 7.8 mg/dL (8.5-10.1); Carbon Dioxide 28.5 meq/L (21.0-32.0); Chloride 107 meq/L (98-107); Glomerular Filtration Rate Greater Than 89 mL/min (>89); Glucose,Random 181 mg/dL (74-106); Potassium 3.1 meq/L (3.5-5.1); Sodium 143 meq/L (136-145)
--- NOTE | 2018-08-05 12:52 | P.DS ---
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 Because patient is nonverbal history was taken by ER physician from the [employer] that came in with the patient, currently there is no 1 at bedside for questioning. The [employer] states that the patient uses a wheelchair and fell yesterday during a transfer, outpatient x-ray was completed and showed a questionable nondisplaced right femur fracture. Upon evaluation in the ER lobe pneumonia as well. Due to anoxic history ROS limited, patient is tachycardic, anxious and contracted. Patient update on day of discharge: Patient is currently doing well. No chest pain, shortness of breath, fever or chills. Mother is at bedside. 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 Severe sepsis secondary to pneumonia Chest x-ray reviewed and shows patchy infiltrates left lower lobe NS bolus x 2, cont IVF Continued IV antibiotics including azithromycin and Rocephin, continue Levaquin for 3 days upon discharge Nebs as needed Pneumococcal antigens positive CTA negative for PE but confirmed consolidation. ST consult for swallow evaluation, concern for aspiration. Reportedly, patient on mechanical soft diet at facility where she resides. DKA - Resolved. Anion gap metabolic acidosis resolved. Received IV insulin drip. Currently on SQ insulin. Rhabdomyolysis CPK 626 --> 425. No further work up/treatment. Hip fracture, right -Orthopedics following. Status post ORIF with leslie placement. -per Ortho, 50% WBAT. daily dressings with xeroform and primapore. Follow up with Dr. Turpin in 2 weeks. -monitor wound for healing -pain management with bowel regimen Hypertension, uncontrolled resume home Metoprolol 25mg BID Vasotec IV prn with parameters Continue to monitor BP and HR, adjust treatment accordingly Anoxic encephalopathy, chronic Resume home medication Resume home tube feeding regiment Severe protein calorie malnutrition On mechanical soft Diabetic diet. Diabetes Mellitus Will keep patient on high sliding scale insulin and Levemir 12 units QHS. Hypokalemia - K+ today 3.1. Will replace with IV KCL and p.o. KCl. DVT prophylaxis: SCDs - Time Spent with Patient Total time spent providing and/or coordinating discharge services: Greater than 30 minutes - Quality: VTE Deep Vein Thrombosis/Pulmonary Embolism Present on Admission: No Exam Vital signs: Vital Signs 08/04/18 13:00 08/04/18 14:00 08/04/18 15:00 Temperature Pulse Rate 91 H 91 H 87 Respiratory Rate 20 15 22 Blood Pressure 148/79 H 129/72 140/72 Pulse Oximetry 100 100 100 08/04/18 16:00 08/04/18 16:11 08/04/18 18:00 Temperature 98.1 F Pulse Rate 91 H 80 86 Respiratory Rate 21 22 Blood Pressure 142/70 H Pulse Oximetry 100 08/04/18 19:00 08/04/18 20:00 08/04/18 20:23 Temperature 97.8 F Pulse Rate 92 H 107 H 101 H Respiratory Rate 24 32 H 20 Blood Pressure 151/72 H 139/64 Pulse Oximetry 74 L 100 100 08/04/18 21:00 08/04/18 22:00 08/04/18 22:01 Temperature Pulse Rate 93 H 94 H 94 H Respiratory Rate 23 29 H 28 H Blood Pressure 123/63 178/78 H 178/78 H Pulse Oximetry 100 100 100 08/04/18 23:00 08/05/18 00:00 08/05/18 01:00 Temperature 98.1 F Pulse Rate 88 77 73 Respiratory Rate 24 23 25 H Blood Pressure 178/86 H 167/77 H 151/79 H Pulse Oximetry 100 100 100 08/05/18 02:00 08/05/18 03:00 08/05/18 03:45 Temperature Pulse Rate 81 75 67 Respiratory Rate 24 21 20 Blood Pressure 161/82 H 138/65 Pulse Oximetry 97 96 08/05/18 04:00 08/05/18 05:00 08/05/18 06:00 Temperature 97.4 F L Pulse Rate 68 71 72 Respiratory Rate 22 20 18 Blood Pressure 126/68 118/63 149/71 H Pulse Oximetry 99 100 100 08/05/18 07:00 08/05/18 08:00 08/05/18 09:00 Temperature 97.7 F Pulse Rate 80 87 86 Respiratory Rate 19 34 H 26 H Blood Pressure 145/71 H 125/75 170/74 H Pulse Oximetry 100 100 96 08/05/18 09:05 08/05/18 09:17 08/05/18 10:00 Temperature Pulse Rate 87 79 74 Respiratory Rate 23 20 26 H Blood Pressure 139/72 136/70 Pulse Oximetry 100 96 99 08/05/18 11:06 Temperature Pulse Rate Respiratory Rate 23 Blood Pressure Pulse Oximetry Intake & Output 08/04/18 08/05/18 08/05/18 18:59 06:59 18:59 Intake Total 440 / 440 410 / 410 Balance 440 / 440 410 / 410 Weight 42 kg Intake: IV 200 / 200 350 / 350 Azithromycin Inj 250 MG In NS 250 / 250 Inj 250 ML @ 250 mls/hr IV.SIG Q24H JEN Rx#:[id number] KCl 20 mEq Premix Inj 20 meq In 100 / 100 100 ml @ 50 mls/hr IV.SIG Q2H JEN Rx#:[id number] Rocephin Inj 1,000 MG In NS Inj 100 / 100 100 ML @ 200 mls/hr IV.SIG Q24H JEN Rx#:[id number] Oral 240 / 240 60 / 60 Other: # Incontinent Voids 2 3 Date of Last Bowel Movement 08/05/18 08/05/18 # Bowel Movements 2 Narrative: GENERAL: thin, cachetic female. Non-verbal. Does not follow commands. SKIN: Warm and dry. HEAD: Normocephalic. EYES: No scleral icterus. No injection or drainage. NECK: Supple, trachea midline. No JVD or lymphadenopathy. CARDIOVASCULAR: Regular rate and rhythm without murmurs, gallops, or rubs. RESPIRATORY: Breath sounds equal bilaterally. No accessory muscle use. GASTROINTESTINAL: Abdomen soft, non-tender, nondistended. MUSCULOSKELETAL: No cyanosis, or edema. BACK: Nontender without obvious deformity. No CVA tenderness. Results Procedures completed during hospitalization: Right Intertrochanteric Hip Fx s/p IMN Labs on day of discharge: Labs from last 24 hours 08/05/18 08/05/18 08/05/18 12:26 10:36 08:22 Sodium 143 Potassium 3.1 L Chloride 107 Carbon Dioxide 28.5 D Anion Gap 8 BUN 8 Creatinine 0.32 L Estimated GFR Greater than 89 POC Glucose 171 H 116 H Random Glucose 181 H Calcium 7.8 L 08/04/18 08/04/18 20:34 17:46 Sodium Potassium Chloride Carbon Dioxide Anion Gap BUN Creatinine Estimated GFR POC Glucose 299 H 88 Random Glucose Calcium Preliminary micro results at discharge 08/01/18 19:20 Aerobic Blood Culture - Preliminary Blood - Peripheral No growth in 4 days Anaerobic Blood Culture - Preliminary No growth in 4 days 08/01/18 19:25 Aerobic Blood Culture - Preliminary Blood - Peripheral No growth in 4 days Anaerobic Blood Culture - Preliminary No growth in 4 days - Impressions ITS Impressions Chest X-Ray 08/01/18 18:48 CONCLUSION: Patchy infiltrates left lower lobe. Treatment and follow-up to resolution. Hip CT 08/01/18 18:48 CONCLUSION: 1. Right intratrochanteric femoral neck fracture. 2. Several sclerotic areas seen in the pelvic bones and proximal right femur. These are nonspecific. They could represent benign bone islands versus other causes for sclerotic lesions including metastatic lesions. Chest CTA 08/02/18 00:00 CONCLUSION: 1. No PE is identified. 2. Consolidation within the left lower lobe with a mild groundglass opacity in the left upper lobe. This could represent an infectious process in the appropriate clinical setting. Suggest follow-up to confirm resolution. 3. Bilateral thyroid nodules measuring up to 2.5 cm on the right. Consider thyroid ultrasound for further characterization on an outpatient elective basis. Femur X-Ray 08/02/18 00:00 CONCLUSION: Limited images as detailed above. Abdomen X-Ray 08/03/18 06:30 CONCLUSION: No acute abdominal abnormality is identified. Discharge Plan - Discharge Disposition Patient Disposition: Discharge to SNF - Discharge Condition Condition: Good - Discharge Order Discharge Orders: Discharge Order (Routine); Ordered 08/05/18 Ordered By: Jes Acevedo - Discharge Details Anticipated Discharge Date: 08/05/18 Discharge Comment: Patient will need routine wound care at SNF. - Physicians Team Primary Care Provider: Karlos Simmons Attending Provider: Jes Acevedo Other Providers: Osman Wilkinson MD ; [facility],[employer] ; Jeancarlos Turpin MD ; [facility]
[2018-08-05] MEDS: Potassium Chlor 20 mEq Premix 20 MEQ/100 ML PIGGYBACK IV.SIG SCH ×2 (12:56→16:27)
[2018-08-05] MEDS ORDERED: Potassium Chloride 25 MEQ Effervescent Tablet G-TUBE ONE (13:08)
[2018-08-05 14:26] VITALS: BP 148/80; O2SAT 83
[2018-08-05 16:32] VITALS: PULSE 87; RESP 28; TEMP 98
== END 2018-08-05 16:20 ==
LOC: NEPE 18:34 → NEDA 21:45 → HCIN 08-02 01:13 → N06 08-02 11:02 → HIMC 08-03 12:32
PROVIDERS: ADMIT Hospitalist; ATTEND Hospitalist